=== PATIENT | female | born 1955 | race African-American/Black ===

== ENCOUNTER 2019-11-16 11:14 | Outpatient (CLI) | payer MEDICARE, MEDICAID, SELFPAY ==
[2019-11-16 11:42] LABS: Basophils Percent Auto 0.8 % (0.2-1.2); Eosinophils Absolute Auto 0.1 K/mm3 (0-0.3); Eosinophils Percent Auto 2.4 % (0-4.4); Hematocrit 36.7 % (37.0-47.0); Immature Granulocyte Absolute 0.02 K/mm3 (0.00-0.031); Immature Granulocyte Percent A 0.4 % (0-0.5); Lymphocytes Absolute Auto 1.32 K/mm3 (0.9-3.2); Lymphocytes Percent Auto 26.8 % (18.3-44.2); Mean Corpuscular HGB Conc 32.7 g/dl (32-36); Mean Corpuscular Hemoglobin 28.9 pg (26-34); Mean Corpuscular Volume 88.4 fl (80-100); Mean Platelet Volume 12.8 fl (7.4-10.4); Monocytes Absolute Auto 0.4 K/mm3 (0.1-0.6); Monocytes Percent Auto 7.7 % (2.6-8.5); Neutrophils Absolute Auto 3.1 K/mm3 (1.3-6.7); Neutrophils Percent Auto 61.9 % (45.5-73.1); Platelet Count Result 203 k/mm3 (150-375); Red Blood Count 4.15 M/mm3 (4.2-5.4); White Blood Count 4.9 K/mm3 (4.5-10.0)
[2019-11-16 15:29] LABS: Free T4 Free Thyroxine Reflex 1.23 ng/dL (0.78-2.19)
[2019-11-16 16:14] LABS: Total Triiodothyronine (T3) 1.09 NG/ML (0.97-1.69)
== END 2019-11-16 11:15 | disposition home or self-care (01) ==
PROVIDERS: PCP Family Medicine; Visit Provider Nurse Practitioner Family
DX: E03.9 Hypothyroidism, unspecified (principal); Z83.2 Family history of diseases of the blood and blood-forming organs and certain disorders involving the immune mechanism
CPT/HCPCS: 36415; 84439; 84443; 84480; 85025

== ENCOUNTER 2019-11-21 10:25 | Outpatient (CLI) | payer MEDICARE, MEDICAID, SELFPAY ==
--- NOTE | ~2019-11-21 | US_ITS ---
EXAMINATION: US thyroid DATE: 11/21/2019 10:59 INDICATION: Nontoxic goiter. TECHNIQUE: Multiple ultrasound images of the thyroid were obtained. COMPARISON: None. FINDINGS: The right thyroid lobe measures 2.6 x 1.2 x 1.3 cm. The left thyroid lobe measures 3.6 x 1.4 x 1.1 c m. In the left thyroid lobe, there is a 14 mm solid, isoechoic, [id number] nodule with ill-defi mando margin without echogenic foci (TI-RADS TR3). IMPRESSION: 1. Left thyroid nodule, likely not clinically significant. No follow-up is needed. Reviewed, dictated and finalized at location A. [employer] [employer] EXAMINER IMPRESSION: 1. Left thyroid nodule, likely not clinically significant. No follow-up is need ed.
== END 2019-11-21 10:26 | disposition home or self-care (01) ==
LOC: ANHIMG 10:26
PROVIDERS: PCP Family Medicine; Visit Provider Nurse Practitioner Family
DX: E03.9 Hypothyroidism, unspecified (principal); E04.9 Nontoxic goiter, unspecified
CPT/HCPCS: 76536

== ENCOUNTER 2019-12-27 10:09 | Outpatient (CLI) | payer MEDICARE, MEDICAID, SELFPAY ==
--- NOTE | ~2019-12-27 | MM_ITS ---
EXAMINATION: MM screening [facility] BI w [facility] HISTORY: Screening mammogram TECHNIQUE: Craniocaudal and mediolateral oblique 3-D tomosynthesis images were obtained and synthetic 2-D images were generated. CAD analysis was submitted and interpreted. COMPARISON: 10/25/2018, 08/30/2017, 08/05/2016 BREAST PARENCHYMAL COMPOSITION: 10/25/2018, 08/30/2017, 08/05/2016 FINDINGS: There is no evidence of suspicious mass, calcification, or architectural distortion to sugg est malignancy in either breast. There has been no suspicious interval change. IMPRESSION: 1. No mammographic evidence of malignancy. 2. Recommend routine screening mammography in one year. BI-RADS Category 1: Negative Reviewed, dictated and finalized at location A.
== END 2019-12-27 10:10 | disposition home or self-care (01) ==
PROVIDERS: PCP Family Medicine; Visit Provider Nurse Practitioner Family
DX: Z12.31 Encounter for screening mammogram for malignant neoplasm of breast (principal)
CPT/HCPCS: 77063; 77067

== ENCOUNTER 2020-07-23 10:00 | Outpatient (RCR) | payer MEDICARE, MEDICAID, SELFPAY ==
--- NOTE | 2020-06-13 10:47 | PCPTNOTE ---
pt called and canceled not feeling well.
--- NOTE | 2020-06-25 11:56 | PTOPEVAL ---
Thank you for referring Mitra Hernandez to [facility].? The patient is scheduled to be seen for therapy? 2 x/week for 4 weeks. Please review, sign, date and return this plan of care JORGE ALBERTO. I agree with and certify that the following plan of care is medically necessary. Referring Physician Date Admitting Provider: Attending Provider: Juliann Sequeira NP Physical Therapy Progress Note *PT Outpatient Evaluation Start: 05/30/20 10:22 Freq: Status: Active Protocol: Document 06/25/20 10:53 DONNY (Rec: 06/25/20 11:52 DONNY [id number]) Therapy Assessment Status Assessment Status Assessment Status Re-evaluation Evaluation Information Problem Diagnosis LBP Onset January 2020 Additional Evaluation Detail MRI of her back in 2014 that revealed lumbar arthritis. X- ray in 2018 was negative for fx. Subjective Information Reports cont pain with longer Query Text:As Reported By Patient/ walking. She reports improved Family tolerance with sitting and perform IADL's, ADL's. She is able to lift light objects without problems. She is able to stand for 1 hour if needed . She continues to c/o her pain as a heavy soreness that is on lennie low back with right greater. She denies any radiating symptoms into the leg. She is performing her HEP 3-4x /wk. Reports the exercise help when she is performing, but the pain returns after sitting . Pain Assessment Timing of Pain Assessment Timing of Pain Assessment Re-assessment Pain Scale Pain Scale Used Numeric (1 - 10) Self Report Pain Assessment Right Lower Back Reported Pain Level 5 Pain Description Aching,Soreness Pain Frequency Continuous Lowest Pain Intensity 5 Greatest Pain Intensity 6 Pain Aggravating Factors Lifting,Walking Pain Behaviors None Pain Relief Interventions Used By Exercise,Heat,Medication Patient Pain Score Pain Score 5: Self Report Cervical and Lumbar ROM Lumbar ROM Lumbar Flexion Active Ankle Query Text:Hands to: Lumbar Extension (0-40) 20 Query Text:Active in Degrees
--- NOTE | 2020-07-14 08:53 | PCPTNOTE ---
Patient called & cancelled scheduled appointment this date due to illness.
--- NOTE | 2020-07-23 10:46 | PTOPEVAL ---
Thank you for referring Mitra Hernandez to [facility].? Pt has received 12 therapy visits to address her back limitations. She has improved trunk and leg strength, trunk motion and tolerance with daily activities. She has achieved most of her therapy goals for her back. She is indep with her HEP. Will DC skilled therapy for addressing her back. She is scheduled to have an assessment for her vestibular impairments on 07/25/20. An updated POC will be completed based on vestibular impairments. Please review, sign, date and return this plan of care JORGE ALBERTO. I agree with and certify that the following plan of care is medically necessary. Referring Physician Date Attending Provider: Juliann Sequeira NP *PT Outpatient Evaluation Start: 05/30/20 10:22 Freq: Status: Active Protocol: Document 07/23/20 10:01 DONNY (Rec: 07/23/20 10:46 [facility] [id number]) Therapy Assessment Status Assessment Status Assessment Status Re-evaluation/ Discharge for back Outpatient Past Medical History Past Medical History No Past Medical/Surgical History Patient/Family Denies Significant Past Medical/ Surgical History Evaluation Information Problem Diagnosis LBP Onset January 2020 Additional Evaluation Detail MRI of her back in 2014 that revealed lumbar arthritis. X- ray in 2018 was negative for fx. Subjective Information Reports cont have increased Query Text:As Reported By Patient/ back pain with longer walking Family distance. States her muscle will tighten after 400 ft. She can sit as long as she likes if in her recliner. But has increased pain if sitting on a hard surface. Denies changes in pain with IADL's and ADL' s if she paces her task. She can manjula standing for 1 hr, but would need to lean on counter or object if needing to stand longer. She is more aware of her body mechanics with activities. She reports new alternating radiating symptoms into legs with walking. She is performing her HEP daily with decrease in her back pain. Pain Assessment Timing of Pain Assessment Timing of Pain Assessment Re-assessment Pain Scale Pain Scale Used Numeric (1 - 10) Self Report Pain Assessment Right Low
== END 2020-08-19 10:01 | disposition home or self-care (01) ==
LOC: ANHPT 10:00
PROVIDERS: PCP Family Medicine; Visit Provider Nurse Practitioner Family
DX: M54.5 Low back pain (principal)
CPT/HCPCS: 97110; 97116; 97161; 97530

== ENCOUNTER 2020-08-29 09:00 | Outpatient (RCR) | payer MEDICARE, MEDICAID, SELFPAY ==
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
--- NOTE | 2020-07-29 08:37 | PCPTNOTE ---
pt called and canceled today's treatment session, due to transportation issues.
--- NOTE | 2020-08-11 08:11 | PCPTNOTE ---
pt called and canceled today's appt due to not feeling well;
--- NOTE | 2020-08-18 09:20 | PCPTNOTE ---
pt did not show for today's appointment; called her and she stated her leg is swollen and apologized for not calling and canceling this appointment.
--- NOTE | 2020-08-25 13:53 | PCPTNOTE ---
Patient called & cancelled scheduled appointment this date due to not feeling well.
--- NOTE | 2020-08-29 09:39 | PTOPEVAL ---
PHYSICAL THERAPY REEVALUATION AND HOLD PT 08-29-2020 Refer to clinical summary below for the comparison to her initial evaluation. Therapy has made some improvement with the BPPV treatment of Eply maneuver. But, she continues to have intermittent dizziness and symptoms with positional changes. Mitra wants to return for a follow up appointment and discuss her status with you. And discuss if she needs to continue PT or not. If she is to continue therapy, please give her a new script to continue treatment. Thank you for referring Mitra Hernandez to [facility].? Please review, sign, date and return this reevaluation report JORGE ALBERTO. I agree with and certify that the following plan of care is medically necessary. Referring Physician Date Attending Provider: Juliann Sequeira NP *PT Outpatient Re-Evaluation Document 08/29/20 09:00 JESU (Rec: 08/29/20 09:39 JESU [id number]) Subjective Information Mitra reports: had dizziness Query Text:As Reported By Patient/ start on Tuesday when in Family yarsanism and continued for 5 days; now feel a little blurry and mild dizziness; when moving, it comes on, try to move slower; did the [employer] at home and made her dizzy and sick; am sick of feeling this way; eyes also water with this; when sitting down and trying to calm down, legs are jumpy and voice changes; try to stop the dizziness coming on and get tense with body and try to make it not come on; taking nausea med and it calms it down some; when dizzy, do not even try to read, makes dizziness worse; do not even try to cook or clean when have dizziness--afraid going to fall; has not had any falls; After last session, and maneuver performed--was A-OK, no problems, went to store after left here, then went home and rested in recliner; Self assessement with the Dizziness Handicap Index, score of 76/100; Pain Assessment Timing of Pain Assessment Timing of Pain Assessment Assessment Self Report Self Report Pain Level 0 Pain Score Pain Score 0: Self Report Additional Pain Score Comments n
--- NOTE | 2020-09-16 10:48 | PCPTNOTE ---
PHYSICAL THERAPY DISCHARGE 09-16-2020 Attending Provider: Juliann Sequeira NP Patient:Mitra Hernandez Date of :1955 Mrs. Hernandez has not returned for any further treatments since the reevaluation on 08/29/2020, therefore she will be discharged at this time. Refer to the reevaluation report for her status at the last appointment. Thank you for referring Mitra to [facility]. Please review, sign, date and return this discharge summary JORGE ALBERTO. I have been updated about the patient's current status and I agree with discharge from the above service at this time. Referring Physician Date
== END 2020-09-16 14:50 | disposition home or self-care (01) ==
LOC: ANHPT 09:00
PROVIDERS: PCP Family Medicine; Visit Provider Nurse Practitioner Family
DX: R42 Dizziness and giddiness (principal)
CPT/HCPCS: 97110; 97161

== ENCOUNTER 2021-01-07 09:17 | Outpatient (CLI) | payer MEDICARE, MEDICAID, SELFPAY ==
--- NOTE | ~2021-01-07 | MM_ITS ---
EXAMINATION: MM screening [facility] BI w [facility] HISTORY: Screening mammogram TECHNIQUE: Craniocaudal and mediolateral oblique 3-D tomosynthesis images were obtained and synthetic 2-D images were generated. CAD analysis was submitted and interpreted. COMPARISON: 12/27/2019, 10/25/2018, 08/30/2017 BREAST PARENCHYMAL COMPOSITION: The breasts are almost entirely fatty. FINDINGS: There is no evidence of suspicious mass, calcification, or architectural distortion to sugg est malignancy in either breast. There has been no suspicious interval change. IMPRESSION: 1. No mammographic evidence of malignancy. 2. Recommend routine screening mammography in one year. BI-RADS Category 1: Negative Reviewed, dictated and finalized at location A.
== END 2021-01-07 09:18 | disposition home or self-care (01) ==
LOC: ANHIMG 09:20
PROVIDERS: PCP Family Medicine; Visit Provider Nurse Practitioner Family
DX: Z12.31 Encounter for screening mammogram for malignant neoplasm of breast (principal)
CPT/HCPCS: 77063; 77067

== ENCOUNTER 2021-01-20 09:43 | Outpatient (CLI) | payer MEDICARE, MEDICAID, SELFPAY ==
[2021-01-20 10:26] LABS: Basophils Percent Auto 0.6 % (0.2-1.2); Eosinophils Absolute Auto 0.2 K/mm3 (0-0.3); Eosinophils Percent Auto 4.3 % (0-4.4); Hematocrit 34.7 % (37.0-47.0); Hemoglobin 11.6 g/dL (12.0-15.0); Immature Granulocyte Absolute 0.01 K/mm3 (0.00-0.031); Immature Granulocyte Percent A 0.2 % (0-0.5); Lymphocytes Absolute Auto 1.46 K/mm3 (0.9-3.2); Lymphocytes Percent Auto 31.5 % (18.3-44.2); Mean Corpuscular HGB Conc 33.4 g/dl (32-36); Mean Corpuscular Hemoglobin 29.7 pg (26-34); Mean Platelet Volume 12.9 fl (7.4-10.4); Monocytes Absolute Auto 0.4 K/mm3 (0.1-0.6); Monocytes Percent Auto 8.9 % (2.6-8.5); Neutrophils Absolute Auto 2.5 K/mm3 (1.3-6.7); Neutrophils Percent Auto 54.5 % (45.5-73.1); Platelet Count Result 193 k/mm3 (150-375); Red Cell Distribution Width 14.1 % (11.5-14.5); White Blood Count 4.6 K/mm3 (4.5-10.0)
[2021-01-20 10:39] LABS: Alanine Aminotransferase 15 U/L (4-35); Alkaline Phosphatase 73 U/L (38-126); Anion Gap 3 mmol/L (8-16); Aspartate Amino Transferase 24 U/L (14-36); Bilirubin,Total 0.4 mg/dL (0.2-1.3); Blood Urea Nitrogen 12 mg/dL (7-17); Calcium 8.7 mg/dL (8.4-10.2); Carbon Dioxide 30 mmol/L (22-30); Chloride 108 mmol/L (98-107); Cholesterol 132 mg/dL (0-200); Estimated Glomerular Filt Rate > 60; Glucose 84 mg/dL (65-105); HDL Direct 49 mg/dL; Potassium 4.1 mmol/L (3.4-5.0); Sodium 141 mmol/L (137-145); Triglycerides 54 mg/dL (<150)
[2021-01-20 10:50] LABS: LDL Cholesterol Direct 54 mg/dL
[2021-01-20 11:04] LABS: Free T4 Free Thyroxine 0.95 ng/mL (0.78-2.19)
== END 2021-01-20 09:44 | disposition home or self-care (01) ==
PROVIDERS: PCP Family Medicine; Visit Provider Nurse Practitioner Family
DX: E03.9 Hypothyroidism, unspecified (principal); Z13.220 Encounter for screening for lipoid disorders
CPT/HCPCS: 36415; 80053; 80061; 84439; 84443; 85025

== ENCOUNTER 2021-06-11 12:50 | Outpatient (CLI) | payer MEDICARE, MEDICAID, SELFPAY ==
--- NOTE | ~2021-06-11 | MR_ITS ---
EXAMINATION: MR ankle RT wo con DATE: 06/11/2021 14:01 INDICATION: Right-sided Achilles tendinitis TECHNIQUE: Magnetic resonance imaging (MRI) of the right ankle was performed without intravenous cont rast. Sequences included sagittal, coronal, and axial proton-density weighted fast spin echo without and with fat saturation. COMPARISON: None. FINDINGS: Medial ankle ligaments: Deep and superficial deltoid ligaments as well as the spring ligament are normal. Lateral ankle ligaments: The anterior and posterior inferior tibiofibular ligaments are normal. The anterior talofibular, calc aneofibular and posterior talofibular ligaments are normal. Tendons: Mild distal Achilles tendinosis. Mild intrasubstance tears with disruption of a couple tiny fascicles in the distal tendon involving the sulci <10% of the cross-sectional area of the tendon. The peroneu s longus and brevis tendons are normal. The tibialis anterior and extensor hallucis longus and extens or digitorum longus tendons are normal. The tibialis posterior, flexor digitorum longus and flexor lau llucis longus tendons are normal. Plantar fascia: Small enthesophyte at the calcaneal origin of the otherwise normal plantar aponeurosis. Bones/other: Bone alignment is normal. Normal bone marrow signal throughout. No fracture or pathologic marrow repl acing process. Mild osteoarthritis with mild nonuniform joint space narrowing at the tibiotalar and s ubtalar joints. Mild to moderate osteoarthritis with joint space narrowing as well as mild subarticul ar cystic change at the reticulation between the navicula and the lateral cuneiform. Fluid: Physiologic amount of fluid in the joint spaces. No tenosynovitis or other abnormal fluid collections . IMPRESSION: 1. Mild insertional tendinosis of the distal Achilles tendon with tiny partial-thickness intrasubstan ce tear involving <10% of the cross-sectional area of the tendon. 2. Polyarticular osteoarthritis, mild to moderate the lateral navicular cuneiform articulation and mi ld at the tibiotalar and subtalar joints. Reviewed, dictated and finalized at location B. IMPRESSION: 1. Mild insertional tendinosis of the distal Achilles tendon with tiny partial- thickness intrasubstance tear involving <10% of the cross-sectional area of the tendon. 2. Polyarticular osteoarthritis, mild to moderate the lateral navicular cuneifo rm articulation and mild at the tibiotalar and subtalar joints.
== END 2021-06-11 12:51 | disposition home or self-care (01) ==
PROVIDERS: PCP Nurse Practitioner Family; Visit Provider Nurse Practitioner
DX: M76.61 Achilles tendinitis, right leg (principal); M19.071 Primary osteoarthritis, right ankle and foot
CPT/HCPCS: 73721

== ENCOUNTER 2022-01-22 09:31 | Outpatient (CLI) | payer MEDICARE, MEDICAID, SELFPAY ==
--- NOTE | ~2022-01-22 | XR_ITS ---
EXAMINATION: XR knee RT 2V DATE: 01/22/2022 09:53 INDICATION: Right knee pain. TECHNIQUE: 2 views of right knee were obtained. COMPARISON: None. FINDINGS: Bone alignment is normal. No fracture. There is moderate osteoarthritis of medial and rivera lofemoral compartments and mild osteoarthritis of lateral compartment. There is a small knee joint ef fusion. IMPRESSION: 1. Moderate right knee osteoarthritis. 2. Small right knee joint effusion. Reviewed, dictated and finalized at location A.
== END 2022-01-22 09:32 | disposition home or self-care (01) ==
LOC: ANHIMG 09:35
PROVIDERS: PCP Family Medicine; Visit Provider Nurse Practitioner Family
DX: M17.11 Unilateral primary osteoarthritis, right knee (principal); M25.461 Effusion, right knee
CPT/HCPCS: 73560

== ENCOUNTER 2022-03-04 10:25 | Outpatient (CLI) | payer MEDICARE, MEDICAID, SELFPAY ==
--- NOTE | ~2022-03-04 | MM_ITS ---
EXAMINATION: MM screening [facility] w [facility] HISTORY: Screening mammogram, family history of breast cancer in her daughter. TECHNIQUE: Craniocaudal and mediolateral oblique 3-D tomosynthesis images were obtained and synthetic 2-D images were generated. CAD analysis was submitted and interpreted. COMPARISON: 01/07/2021, 12/27/2019, 10/25/2018 BREAST PARENCHYMAL COMPOSITION: There are scattered areas of fibroglandular density. FINDINGS: There is no suspicious mass, calcification, or architectural distortion to suggest malignan cy in either breast. There has been no suspicious interval change. IMPRESSION: 1. No mammographic evidence of malignancy. 2. Recommend routine screening mammography in one year. BI-RADS Category 1: Negative Reviewed, dictated and finalized at location A.
== END 2022-03-04 10:26 | disposition home or self-care (01) ==
PROVIDERS: PCP Family Medicine; Visit Provider Nurse Practitioner Family
DX: Z12.31 Encounter for screening mammogram for malignant neoplasm of breast (principal)
CPT/HCPCS: 77063; 77067

== ENCOUNTER 2022-09-10 11:00 | Outpatient (RCR) | payer MEDICARE, MEDICAID, SELFPAY ==
--- NOTE | 2022-08-13 09:03 | PTOPEVAL1 ---
Assessment and note entered by Lupe Mohamud, PT Evaluation Information Assessment Status Evaluation Diagnosis R knee and R foot pain Onset October 2021 Subjective Information In October, started having more pain in R heel-- saw foot , was told I had heel spurs and achilles tear, wore a walking boot and got an injection into my heel--did not help the pain; over time, heel got better and knee started hurting more, Dr Marc gave me shot in the knee and it helped until just few weeks ago, now pain has returned; told her she may need a TKR in the future; have had knee arthroscopy in the past For her heel doing exercises from another facility --calf and toe stretches; Discussed treatment plan and decided to focus PT treatment on knee first, then recheck with heel. Reported Pain Level Pain Score Self Report Additional Pain Score Comments pain range of R knee pain 7-9/10; burning just below knee cap & behind knee/at crease, swells and stabbing pain; increase pain with walking 5-10 min; decrease pain with elevation, ice, take tylenol-not really help; wear velcro knee brace sometimes, but if wear too long, makes knee swell; with sleeping awaken 2-3 x/night due to knee pain; Assessment PT Clinical Summary Mitra has the diagnosis of R knee pain and R heel pain. She has had treatment at another facility for her heel and reports it did not help; she is doing stretching exercises and ice for her heel. Discussed and decided that PT treatment would be for her R knee at this time and recheck with heel later. She reports the R knee pain limits her walking, sleeping and activity level. With the evaluation, she has decreased ROM of R hip flexion and ER and R knee flexion--with hip and knee pain reported. She has decreased strength of R hip and knee, and is not doing any leg exercises. Skilled PT services are indicated to increase R hip and knee strength, improve gait pattern and modalities to decrease pain with education for home exercises and pain control. Plan of Care Interventions Electrical Stimulation,Gait Training,Hot Pack/Cold Pack,Manual Therapy,Neuro Re-education,Patient/ Car
--- NOTE | 2022-09-03 08:48 | PCPTNOTE ---
Patient called & cancelled scheduled appointment this date stating that she can not make it to therapy today.
--- NOTE | 2022-09-10 11:26 | PTOPDC ---
Assessment and note entered by Lupe Mohamud, PT Evaluation Information Assessment Status Discharge Diagnosis R knee and R foot pain Onset October 2021 Subjective Information Mitra reports: about the same as she was when she started therapy; tape helped the heel a little; the knee exercises make her knee pain worse; fell few days ago, was sitting in a desk chair and moving around the kitchen with it, reaching into cabinet and chair flipped over--now more back and knee pain; was able to get up off the floor without anyone helping her; PAIN: R knee -07/26, needles and sticking pain below knee cap; R heel -07/26- posterior heel and bottom heel; pain increase R knee with moving walking and doing exercises, straighten knee; awaken from sleeping 2-3x/night; R heel pain increase with standing, walking; using the cane all the time at home; uses heat, ice, elevation and rest to decrease pain; Discussed use of wheeled walker, with seat, that she could decrease pressure on R leg and then sit in the seat for kitchen tasks and increased pain; Reported Pain Level Pain Score Self Report R foot and knee Assessment PT Clinical Summary Mitra has received 5 PT sessions. Compared to the initial evaluation: pain rating is worse, from 7-9/10 and now 9-10/10; reported sleeping tolerance is the same; is now using a cane all the time due to pain; 5 reps sit/stand time is worse by 15 seconds; 2 minute walking test distance is 50' less; Her pain increases with active R knee flexion and extension and ankle DF motions. She has been educated on home exercises and techniques for pain control The goals were not achieved. She is to follow up with the Discharge PT services. Plan of Care PT Services Indicated No
== END 2022-09-10 14:18 | disposition home or self-care (01) ==
LOC: ANHPT 11:00
PROVIDERS: PCP Family Medicine; Visit Provider Orthopaedic Surgery
DX: M17.11 Unilateral primary osteoarthritis, right knee (principal); M25.561 Pain in right knee; M79.671 Pain in right foot; M72.2 Plantar fascial fibromatosis
CPT/HCPCS: 97014; 97035; 97110; 97140; 97161; 97530; G0283

== ENCOUNTER 2022-12-28 11:00 | Outpatient (RCR) | payer MEDICARE, MEDICAID, SELFPAY ==
--- NOTE | 2022-11-23 10:57 | PTOPEVAL1 ---
Assessment and note entered by Lupe Mohamud, PT Evaluation Information Assessment Status Evaluation Diagnosis R plantar fasciitis Onset Sep 2022 Subjective Information gradual increase in pain, no recent injury to foot & ankle; history of R achilles tendon tear, R foot bone spur; no recent imaging; have had injections into R heel-about Jul- did not help pain; going on Dec 07 for orthotics to be fitted; R knee also painful--had injection in knee, helped about 1 week, then pain returned; history of low back pain; PT for her foot in the past here--tape helped some is still doing some of the ankle/foot exercises that she has; Reported Pain Level Pain Score Self Report R ankle/foot Additional Pain Score Comments pain range of 8-10/10; sharp, stabbing pain in R heel, goes up medial leg to medial and anterior knee; oliver in knee; increase pain with walking/ standing 30 min; decreased pain: soak hot epsom salt water, heat pad, ice pack; taking meloxicam; Assessment PT Clinical Summary Mitra has the diagnosis of R plantar fasciitis. She has a medical history including: chronic back pain, R hip, knee and ankle pain. She has achilles tear per her report. She has had PT in the past for R foot and ankle pain. She uses a cane and walking/standing is limited due to pain. With the evaluation: she has pain with R ankle motions of DF, PF, inversion and eversion motions, with ranges that are WNL; her R knee and hip have decreased ROM; she has poor standing position of her ankle/foot, and 2 minute walking test distance of 235'; Skilled PT services are indicated for modalities to decrease pain and spasms, therapeutic exercises to increase posture, strength and positioning of R LE and education for home exercises and positioning. Plan of Care Interventions Electrical Stimulation,Gait Training,Hot Pack/Cold Pack,Manual Therapy,Neuro Re-education,Patient/ Caregiver Education,Therapeutic Activities, Therapeutic Exercise,Ultrasound,Other Other Interventions taping PT Services Indicated Yes Treatment Frequency and 2x/wk for 5 weeks Duration
--- NOTE | 2022-12-10 11:19 | PCPTNOTE ---
Patient called & cancelled scheduled appointment this date due to going out of town.
--- NOTE | 2022-12-20 16:15 | PCPTNOTE ---
Patient called & cancelled scheduled appointment this date due to not feeling well.
--- NOTE | 2022-12-28 11:46 | PTOPDC ---
Assessment and note entered by Lupe Mohamud, PT Evaluation Information Assessment Status Discharge Diagnosis R plantar fasciitis Onset Sep 2022 Subjective Information Mitra reports: somewhat better, but still stiff and sore;doing the exercises sometimes; saw general pratt yesterday and got a new med for pain-- took one and it knocked her out yesterday afternoon; educated kinesiotape use-- how apply for continue use; reinforced continue HEP; pain range in the past week, 6-7/10, tenderness and sore, back of heel; increase pain with walking/standing tolerance of 1 hour, then have to sit down; decrease pain with sitting and elevation, heel cup for shoe; also use ice, soak in epsom salt with grain alcohol; also have pain in R knee & hip and low back Reported Pain Level Pain Score Self Report R heel/foot Additional Pain Score Comments pain range in the past week, 6-7/10, tenderness and sore, back of heel; increase pain with walking/standing tolerance of 1 hour, then have to sit down; decrease pain with sitting and elevation, heel cup for shoe; also use ice, soak in epsom salt with grain alcohol; Assessment PT Clinical Summary Mitra has received 7 PT sessions. She called and canceled 2 appointments due to transportation issues. Compared to the initial evaluation: pain has decreased from 8-10 to 6-7/10; reported walking/ standing tolerance increased from 30 to 60 minutes 2 minute walking distance increased from 235' to 450' and did not use a cane today; she continues to limp on R LE and hold R hip in ER; continues to have pain with active R ankle DF, inversion and eversion. She has been educated on HEP and pain control with kinesiotape, elevation, ice. The goals were partially met. Discharge PT services. Plan of Care PT Services Indicated No
== END 2023-02-07 09:51 | disposition home or self-care (01) ==
LOC: ANHPT 11:00
PROVIDERS: PCP Family Medicine; Visit Provider Podiatrist Foot & Ankle Surgery
DX: M72.2 Plantar fascial fibromatosis (principal)
CPT/HCPCS: 97035; 97110; 97140; 97161; 97530

== ENCOUNTER 2023-01-18 08:35 | Outpatient (CLI) | payer MEDICARE, MEDICAID, SELFPAY ==
[2023-01-18 19:53] LABS: Basophils Percent Auto 0.6 % (0.2-1.2); Eosinophils Absolute Auto 0.2 K/mm3 (0-0.3); Eosinophils Percent Auto 3.2 % (0-4.4); Hematocrit 36.7 % (37.0-47.0); Hemoglobin 12.1 g/dL (12.0-15.0); Immature Granulocyte Absolute 0.01 K/mm3 (0.00-0.031); Immature Granulocyte Percent A 0.2 % (0-0.5); Immature Platelet Fraction Pct 15.6 % (0.9-11.2); Lymphocytes Absolute Auto 1.53 K/mm3 (0.9-3.2); Lymphocytes Percent Auto 23.2 % (18.3-44.2); Mean Corpuscular Hemoglobin 29.4 pg (26-34); Mean Corpuscular Volume 89.1 fl (80-100); Monocytes Absolute Auto 0.5 K/mm3 (0.1-0.6); Neutrophils Absolute Auto 4.3 K/mm3 (1.3-6.7); Neutrophils Percent Auto 64.8 % (45.5-73.1); Platelet Count Result 234 k/mm3 (150-375); Red Blood Count 4.12 M/mm3 (4.2-5.4); Red Cell Distribution Width 14.6 % (11.5-14.5); White Blood Count 6.6 K/mm3 (4.5-10.0)
[2023-01-18 21:11] LABS: Alanine Aminotransferase 26 U/L (6-35); Albumin Level 4.1 g/dL (3.5-5.1); Alkaline Phosphatase 101 U/L (38-126); Anion Gap 5 mmol/L (8-16); Aspartate Amino Transferase 60 U/L (14-36); Bilirubin,Total 0.6 mg/dL (0.2-1.3); Blood Urea Nitrogen 7 mg/dL (7-17); Calcium 8.8 mg/dL (8.4-10.2); Carbon Dioxide 31 mmol/L (22-30); Chloride 105 mmol/L (98-107); Cholesterol 150 mg/dL (0-200); Estimated Glomerular Filt Rate > 60; Glucose 92 mg/dL (65-110); HDL Direct 46 mg/dL; Potassium 3.9 mmol/L (3.4-5.0); Sodium 141 mmol/L (137-145); Triglycerides 83 mg/dL (<150)
[2023-01-18 21:23] LABS: LDL Cholesterol Direct 63 mg/dL
[2023-01-18 21:29] LABS: Vitamin D 25 Hydroxy 19.4 ng/mL
== END 2023-01-18 08:36 | disposition home or self-care (01) ==
LOC: ANHGOSHLAB 08:37
PROVIDERS: PCP Family Medicine; Visit Provider Nurse Practitioner Family
DX: E03.9 Hypothyroidism, unspecified (principal); I10 Essential (primary) hypertension; E55.9 Vitamin D deficiency, unspecified; E78.5 Hyperlipidemia, unspecified
CPT/HCPCS: 36415; 80053; 80061; 82306; 84443; 85025; 85055

== ENCOUNTER → 2023-02-10 11:10 | Outpatient (CLI) | payer MEDICARE, MEDICAID, SELFPAY ==
--- NOTE | ~2023-02-10 | XR_ITS ---
Cervical Spine: AP, lateral, open-mouth views Clinical History: Pain Findings: There is straightening of the normal cervical lordosis. No fracture evident. No subluxation evident. There is moderate degenerative disc narrowing C5-C6 and C6-C7. There is mild degenerative c hange at C3-C4 and C4-C5. Pre-vertebral soft tissues are unremarkable. Impression: Mild degenerative spondylosis, as above. Reviewed, dictated and finalized at location M. Impression: Mild degenerative spondylosis, as above.
== END ==
PROVIDERS: PCP Nurse Practitioner Family; Visit Provider Nurse Practitioner Family
DX: M47.892 Other spondylosis, cervical region (principal)
CPT/HCPCS: 72040

== ENCOUNTER 2023-03-21 08:45 | Outpatient (RCR) | payer MEDICARE, MEDICAID, SELFPAY ==
--- NOTE | 2023-02-22 11:59 | PTOPEVAL1 ---
Assessment and note entered by Cathy Hall, PT Evaluation Information Assessment Status Evaluation Diagnosis cervicalgia Onset December 2022 Subjective Information Patient is 67 year old female referred due to neck pain. Patient reports pain is chronic for about one year but has recently worsened since December. Pain is located on the right side of her neck and is described as a crunchy and burning pain. x ray shows mild degenerative spondylosis of cervical spine. Patient goal is to decrease her pain in order to participate in activities within the community. Reported Pain Level Pain Score 7: Self Report Additional Pain Score Comments upon further assessment pain is most increased with palpation of cervical musculature, cervical rotation and lateral flexion to left when in corrected posture. Assessment PT Clinical Summary Patient is 67 year old female referred to Physical Therapy due to neck pain. Past medical history includes lupus, vertigo, arthritis, bilateral knee pain,and R Achilles tear. Patient reports pain as 7/10 in R side of neck, pain is worsened with any movement of cervical spine and is relieved with immobility. Patient demonstrates postural impairments upon assessment with R shoulder rounded forward, L shoulder elevated, and L lateral neck flexion/rotation. Range of motion limitations noted with R lateral cervical flexion 47 degrees, L lateral cervical flexion 30 degrees , R cervical rotation 40 degrees, L cervical rotation 30 degrees. Increased pain reported with cervical movement to L side. Visual cues required throughout to correct to neutral posture, patient able to achieve with cues however unable to maintain due to pain, weakness, impairments in muscle length. Patient would benefit from skilled therapy services 2x/wk for 4 weeks to improve length and strength of cervical musculature in order to improve upright posture and decrease pain . Plan of Care Interventions Electrical Stimulation,Hot Pack/Cold Pack,Manual Therapy,Mechanical Traction,Patient/Caregiver Education,Therapeutic Activities,Therapeutic Exercise,Self-Care/Home Management,Ultrasound PT Services Indicated Yes Treatment Frequency and 2x/wk for 4 weeks Duration
--- NOTE | 2023-03-17 09:23 | PCPTNOTE ---
Patient left message to cancel appointment due to illness this date.
--- NOTE | 2023-04-04 10:15 | PCPTNOTE ---
Patient did not show up for scheduled appointment on 03/24/23. This was her last scheduled visit.
--- NOTE | 2023-04-04 10:23 | PCPTNOTE ---
Called and LVM with pt to follow up. Has not attended since 03/21/23. If we do not hear back in the next week she will be discharged.
--- NOTE | 2023-04-04 11:50 | PTOPDC ---
Assessment and note entered by Adarsh Isaac, PT, DPT Evaluation Information Assessment Status Discharge - Pt Not Present Diagnosis cervicalgia Onset December 2022 Subjective Information Pt called and states she is doing well and can be discharged from therapy at this time. Assessment PT Clinical Summary Mitra completed 7 visits of therapy from 02/22/23 to 03/21/23. She will be discharged at this time per pt request. If she needs additional therapy at a later date she will need a new order. Plan of Care PT Services Indicated Yes
== END 2023-04-04 12:46 | disposition home or self-care (01) ==
LOC: ANHGOSHPT 08:45
PROVIDERS: PCP Nurse Practitioner Family; Visit Provider Nurse Practitioner Family
DX: M54.2 Cervicalgia (principal)
CPT/HCPCS: 97110; 97112; 97140; 97162; 99199

== ENCOUNTER 2023-07-05 07:10 | Outpatient (CLI) | payer MEDICARE, MEDICAID, SELFPAY ==
--- NOTE | ~2023-07-05 | MR_ITS ---
MRI of the right hindfoot Clinical history: Calcaneal spur Technique: Coronal proton-density and proton-density fat-sat images, axial proton-density and proton- density fat-sat images, and sagittal proton-density and proton-density fat-sat images were acquired. Findings: Syndesmotic ligaments of the ankle are intact. Anterior talofibular ligament is not clearly visualized. Posterior talofibular ligament is intact. Calcaneofibular ligament is not well-visualize d. Deltoid ligament is intact. Medial flexor tendons, peroneal tendons, and anterior extensor tendons at the ankle are intact. There is mild to moderate to distal Achilles tendinosis with focal linear low-grade interstitial tear dist ally. Plantar fascia is intact. Minimal plantar calcaneal spur present. No osteochondral lesion of the kenna r dome identified. Visualized joint spaces are intact. No joint effusion. Normal signal preserved in the sinus Tarsi. There is mild subcutaneous soft tissue edema, nonspecific. Impression: Mild to moderate distal Achilles tendinosis with focal linear low-grade interstitial tear. Anterior talofibular and calcaneofibular ligaments are not clearly visualized. This could reflect seq uelae of remote sprain/tear. Minimal plantar calcaneal spur. Reviewed, dictated and finalized at location . Impression: Mild to moderate distal Achilles tendinosis with focal linear low-grade interst itial tear. Anterior talofibular and calcaneofibular ligaments are not clearly visualized. This could reflect sequelae of remote sprain/tear. Minimal plantar calcaneal spur.
== END 2023-07-05 07:11 | disposition home or self-care (01) ==
PROVIDERS: PCP Nurse Practitioner Family; Visit Provider Nurse Practitioner Family
DX: M77.31 Calcaneal spur, right foot (principal)
CPT/HCPCS: 73718

== ENCOUNTER 2023-08-01 11:00 | Outpatient (RCR) | payer MEDICARE, MEDICAID, SELFPAY ==
--- NOTE | 2023-06-01 12:02 | OPREHPOC ---
Outpatient Therapy Plan of Care This is a Multidisciplinary Plan of Care that may contain components documented by all disciplines (PT, OT, and ST.) PT Problem 1 PT Problem #1 Knowledge Deficit PT Goal 1 Goal Independent with HEP Target Visit 8 PT Problem 2 PT Problem #2 Pain PT Goal 1 Goal decrease pain to 5/10 Target Visit 8 PT Problem 3 PT Problem #3 Impaired Gait PT Goal 1 Goal ambvulate without antalgic giat pattern Target Visit 8 PT Problem 4 PT Problem #4 Impaired Range of Motion PT Goal 1 Goal increase ankle strength to 4+/5 Target Visit 8
--- NOTE | 2023-06-01 12:02 | PTOPEVAL1 ---
Assessment and note entered by Nathan Colbert, PT Evaluation Information Assessment Status Evaluation Diagnosis R achilles/heel pain Onset chronic but increased pain about a year ago Subjective Information Patient reports having pain in this foot/heel for a long time with the pain getting significantly worse in the last year. The patient has prior done physical therapy and aquatic therapy at this clinic and its sister location in [place]. Patient reports she still does her heel stretching that she was given as he HEP, but the pain is worse. MD has also given her a prescription anti- inflammatory. Patient also uses a cold pack and ice pack for pain. Pain is aggravated by increased time on her feet. She did receive an injection she thinks in February or March of this year. Patient is wanting an MRI to see seriousness of injury. Reported Pain Level Pain Score 8: Self Report Additional Pain Score Comments Patient reports it is just constantly 8/10 pain. Assessment PT Clinical Summary Mitra is a 67 year old female coming into the clinic with a diagnosis of R Achilles/heel pain. Patient has weakness in the ankle along with two bad knees which hinder exercises at home. Recommend aquatic therapy using the buoyancy of the water to help minimize some of the stress on the joints while working on stretching and strengthening of the R ankle. Plan of Care Interventions Aquatic Therapy PT Services Indicated Yes Treatment Frequency and 1-2 x per week for 8 visits Duration These treatments will address the objective and functional deficits as defined above. The patient will be advanced safely and appropriately in order for the patient to progress towards his/her prior level of function. Additional exercises will be introduced and as well as a comprehensive home exercise program upon discharge, if needed, ?to ensure carryover of functional gains achieved in the clinic. This treatment plan has been reviewed and agreement upon by the patient.
--- NOTE | 2023-06-14 11:16 | PCPTNOTE ---
Pt had to cancel due to ride not showing.
--- NOTE | 2023-06-30 09:45 | OPREHPOC ---
Outpatient Therapy Plan of Care This is a Multidisciplinary Plan of Care that may contain components documented by all disciplines (PT, OT, and ST.) PT Problem 1 PT Problem #1 Knowledge Deficit PT Goal 1 Goal Independent with HEP Target Visit 8 Progress Partially Met Comment Dependant on aquatics at this time PT Problem 2 PT Problem #2 Pain PT Goal 1 Goal decrease pain to 5/10 Target Visit 8 Progress Partially Met Comment Lower but still significant PT Problem 3 PT Problem #3 Impaired Gait PT Goal 1 Goal ambulate without antalgic giat pattern Target Visit 8 Progress Not Met Comment Continues to reflect antalgia PT Problem 4 PT Problem #4 Impaired Range of Motion PT Goal 1 Goal increase ankle strength to 4+/5 Target Visit 8 Progress Partially Met Comment Improved but still painful
--- NOTE | 2023-06-30 09:45 | PTOPPROG ---
Assessment and note entered by David Zapata, PT Evaluation Information Assessment Status Evaluation Diagnosis R Achilles/heel pain Onset chronic but increased pain about a year ago Subjective Information Reports that therapy in the pool has really helped for a short time but she is still really struggling with pain on land. She feels she is still limping especially with increased time spent on her feet. She is overall better but does not feel she is good. Continues to struggle with swelling and pain with weight bearing. She gets occasional pain and numbness in the great toe and arch of the foot which has not greatly improved. Assessment PT Clinical Summary Patient has made progress at this time but is still showing significant weakness in the ankle that are also limited by pain symptoms at this time . Will continue to benefit from skilled therapy focused on aquatic to off load ankle to gradually improve strength. She is scheduled for an MRI on to assess structure of ankle and determine if she is a candidate for surgery. Plan of Care Interventions Aquatic Therapy PT Services Indicated Yes Treatment Frequency and 2x/week for 4 weeks Duration These treatments will address the objective and functional deficits as defined above. The patient will be advanced safely and appropriately in order for the patient to progress towards his/her prior level of function. Additional exercises will be introduced and as well as a comprehensive home exercise program upon discharge, if needed, ?to ensure carryover of functional gains achieved in the clinic. This treatment plan has been reviewed and agreement upon by the patient.
--- NOTE | 2023-07-18 08:49 | PCPTNOTE ---
pt called and canceled due to illness;
--- NOTE | 2023-08-01 11:58 | OPREHPOC ---
Outpatient Therapy Plan of Care This is a Multidisciplinary Plan of Care that may contain components documented by all disciplines (PT, OT, and ST.) PT Problem 1 PT Problem #1 Knowledge Deficit PT Goal 1 Goal Independent with HEP Target Visit 8 Progress Met PT Problem 2 PT Problem #2 Pain PT Goal 1 Goal decrease pain to 5/10 Target Visit 8 Progress Met Comment Consistently below 5/10 with activity PT Problem 3 PT Problem #3 Impaired Gait PT Goal 1 Goal ambulate without antalgic giat pattern Target Visit 8 Progress Met Comment For short distances PT Problem 4 PT Problem #4 Impaired Range of Motion PT Goal 1 Goal increase ankle strength to 4+/5 Target Visit 8 Progress Met Comment All strength measures met
--- NOTE | 2023-08-01 11:58 | PTOPDC ---
Assessment and note entered by David Zapata, PT Discharge Information Assessment Status Discharge Diagnosis R Achilles/heel pain Onset chronic but increased pain about a year ago Subjective Information Reports that she really feels that therapy has helped from both a functional and pain standpoint. No concerns at this time with discharge. Plans to continue motion activity at home. Reported Pain Level Pain Score 0: Self Report Assessment PT Clinical Summary Patient has met majority of goals at this time for therapy. She still has some minor strength issues and pain is based on activity level, but gait is significantly improved overall. Would like to discharge at this time based on improvement and she does not want aquatic therapy during the winter. Plan of Care PT Services Indicated No
== END 2023-08-01 14:05 | disposition home or self-care (01) ==
LOC: ANHPT 11:00
PROVIDERS: PCP Nurse Practitioner Family; Visit Provider Podiatrist Foot & Ankle Surgery
DX: M76.61 Achilles tendinitis, right leg (principal)
CPT/HCPCS: 97110; 97113; 97140; 97161

== ENCOUNTER 2023-08-16 10:31 | Outpatient (CLI) | payer MEDICARE, MEDICAID, SELFPAY ==
--- NOTE | ~2023-08-16 | XR_ITS ---
XR lumbar spine 2-3V DATE: 08/16/2023 10:19 INDICATION: Low back pain TECHNIQUE: AP, lateral, coned lateral lumbosacral views COMPARISON: 07/01/2017 lumbar spine FINDINGS: Again noted are 4 functional lumbar vertebrae. Normal alignment of the lumbar spine. No fra cture or bone destruction or spondylolisthesis is evident. There is moderately prominent degenerative disc disease including vacuum phenomenon at the lumbosacral interspace. The sacroiliac joints are intact with evidence of degenerative change. IMPRESSION: Moderate lumbosacral interspaces degenerative disc disease Degenerative change at the sacroiliac joints Reviewed, dictated and finalized at location L.
--- NOTE | ~2023-08-16 | XR_ITS ---
XR hip RT min 2V DATE: 08/16/2023 10:19 INDICATION: Right hip pain TECHNIQUE: AP and lateral views COMPARISON: None FINDINGS: No fracture or dislocation, avascular necrosis or bone destruction. Hip joint space is well preserved. IMPRESSION: Negative Reviewed, dictated and finalized at location L. IMPRESSION: Negative
--- NOTE | ~2023-08-16 | MM_ITS ---
EXAMINATION: MM screening aram BI w ashley HISTORY: Screening mammogram, family history of breast cancer in her daughter. TECHNIQUE: Craniocaudal and mediolateral oblique 3-D tomosynthesis images were obtained and synthetic 2-D images were generated. CAD analysis was submitted and interpreted. COMPARISON: 03/04/2022, 01/07/2021, 12/27/2019 BREAST PARENCHYMAL COMPOSITION: There are scattered areas of fibroglandular density. FINDINGS: No suspicious mass, calcification, or architectural distortion are identified in either jody ast to suggest malignancy. There has been no suspicious interval change. IMPRESSION: 1. No mammographic evidence of malignancy. 2. Recommend routine screening mammography in one year. BI-RADS Category 1: Negative Reviewed, dictated and finalized at location A.
--- NOTE | ~2023-08-16 | DEXA_ITS ---
Bone Density Report Name: ADELINA GOLDMAN Age: 67 Sex: Female Ethnicity: Black Date of : 1955 Indication: postmenopausal; screening for osteoporosis; hysterectomy; rheumatoid arthritis; Referring Provider: ELAYNE, MICHAELA Loving Study: Bone densitometry was performed. Exam Date: August 16, 2023 Accession number: [id number] Bone Density: Region BMD T-score Z-score Classification AP Spine(L1-L4) 1.064 0.2 1.2 Normal Femoral Neck (Left) 0.791 -0.5 0.2 Normal Total Hip (Left) 1.065 1.0 1.2 Normal Femoral Neck (Right) 0.843 -0.1 0.5 Normal Total Hip (Right) 0.929 -0.1 0.3 Normal Total Hip Mean 0.997 0.5 0.8 Normal World Health Organization criteria for BMD impression classify patients as: Normal (T-score at or above -1.0), Osteopenia (T-score between -1.0 and -2.5), or Osteoporosis (T-score at or below -2.5). 10-year Fracture Risk: FRAX not reported because: All T-scores for Spine Total, Hip Total, Femoral Neck at or above -1.0 Previous Exams: Region Exam Age BMD T-score BMD Change BMD Change Date g/cm2 vs Baseline vs Previous AP Spine (L1-L4) 08/16/2023 67 1.064 0.2 -0.037 (-3.3%) -0.037 (-3.3%) 06/29/2018 62 1.101 0.5 Total Hip(Left) 08/16/2023 67 1.065 1.0 -0.094 (-8.1%) -0.094 (-8.1%) 06/29/2018 62 1.159 1.8 Total Hip(Right) 08/16/2023 67 0.929 -0.1 -0.254 (-21.4% -0.254 (-21.4% 06/29/2018 62 1.183 2.0 *Denotes significance at 95% confidence level, LSC for AP Spine = 0.022 g/cm2, LSC for Total Hip = 0.027 g/cm2 Clinical Information Provided by Patient: Has rheumatoid arthritis Has used the following medications: Vitamin D Has the following medical conditions: Hysterectomy Patient maximum height was 61 Menopause Age: 34 No regular weight bearing exercise Onset of menses at age 15 Number of children 6 Impression: The patient has normal bone mass. The BMD for the AP Spine (L1-L4) decreased, changing by -3.3% since the last DXA exam. The BMD for the Total Hip(Left) decreased, changing by -8.1% since the last DXA exam. The BMD for the Total Hip(Right) decreased, changing by -21.4% since the last DXA exam. Discussion: BONE DENSITY IS ABOVE THE MINIMUM DESIRABLE LEVEL AT ALL SKELETAL SITES TESTED. This patient?s bone mineral density is above the minimum desirable level (T-score -1.0 or better) at all sites measured. The patient should follow a healthful lifestyle (good nutrition with adequate calci
[2023-08-16 11:22] LABS: Basophils Percent Auto 0.7 % (0.2-1.2); Eosinophils Absolute Auto 0.1 K/mm3 (0-0.3); Eosinophils Percent Auto 1.8 % (0-4.4); Hematocrit 36.6 % (37.0-47.0); Hemoglobin 11.9 g/dL (12.0-15.0); Immature Granulocyte Absolute 0.02 K/mm3 (0.00-0.031); Immature Granulocyte Percent A 0.4 % (0-0.5); Lymphocytes Absolute Auto 1.62 K/mm3 (0.9-3.2); Mean Corpuscular HGB Conc 32.5 g/dl (32-36); Mean Corpuscular Hemoglobin 28.7 pg (26-34); Mean Corpuscular Volume 88.2 fl (80-100); Mean Platelet Volume 12.8 fl (7.4-10.4); Monocytes Absolute Auto 0.6 K/mm3 (0.1-0.6); Monocytes Percent Auto 9.8 % (2.6-8.5); Neutrophils Absolute Auto 3.3 K/mm3 (1.3-6.7); Neutrophils Percent Auto 58.3 % (45.5-73.1); Platelet Count Result 215 k/mm3 (150-375); Red Blood Count 4.15 M/mm3 (4.2-5.4); Red Cell Distribution Width 14.2 % (11.5-14.5); White Blood Count 5.6 K/mm3 (4.5-10.0)
[2023-08-16 11:34] LABS: Alanine Aminotransferase 17 U/L (6-35); Albumin Level 4.2 g/dL (3.5-5.1); Alkaline Phosphatase 79 U/L (38-126); Anion Gap 7 mmol/L (8-16); Aspartate Amino Transferase 24 U/L (14-36); Bilirubin,Total 0.8 mg/dL (0.2-1.3); Blood Urea Nitrogen 10 mg/dL (7-17); Calcium 9.3 mg/dL (8.4-10.2); Carbon Dioxide 28 mmol/L (22-30); Chloride 107 mmol/L (98-107); Cholesterol 158 mg/dL (0-200); Estimated Glomerular Filt Rate > 60; Glucose 94 mg/dL (65-110); HDL Direct 55 mg/dL; Potassium 3.6 mmol/L (3.4-5.0); Sodium 142 mmol/L (137-145); Triglycerides 65 mg/dL (<150)
[2023-08-16 11:46] LABS: LDL Cholesterol Direct 69 mg/dL
== END 2023-08-16 10:32 | disposition home or self-care (01) ==
PROVIDERS: PCP Nurse Practitioner Family; Visit Provider Nurse Practitioner Family
DX: Z12.31 Encounter for screening mammogram for malignant neoplasm of breast (principal); Z78.0 Asymptomatic menopausal state; M47.817 Spondylosis without myelopathy or radiculopathy, lumbosacral region; M17.11 Unilateral primary osteoarthritis, right knee; M25.551 Pain in right hip; I10 Essential (primary) hypertension; Z00.00 Encounter for general adult medical examination without abnormal findings; Z13.220 Encounter for screening for lipoid disorders; E03.9 Hypothyroidism, unspecified; M54.50 Low back pain, unspecified; M51.36 Other intervertebral disc degeneration, lumbar region
CPT/HCPCS: 36415; 72100; 73502; 77063; 77067; 77080; 80053; 80061; 84443; 85025

== ENCOUNTER 2023-08-21 05:12 | Emergency (ER) | payer MEDICARE, MEDICAID, SELFPAY ==
[2023-08-21] VITALS (12 sets, daily range): BP systolic 138–148; BP diastolic 65–83; PULSE 59–69; RESP 12–20; TEMP 36.5; O2SAT 93–97
--- NOTE | ~2023-08-21 | XR_ITS ---
EXAMINATION: XR knee RT 3V DATE: 08/21/2023 06:23 INDICATION: Right knee pain TECHNIQUE: Three views of the right knee were obtained. COMPARISON: None. FINDINGS: Alignment is normal. No fracture or osteochondral lesion. There is moderate osteoarthritis in the medial and patellofemoral compartments. No joint effusion/synovitis. Soft tissues are unremar kable. IMPRESSION: 1. Osteoarthritis without acute osseous abnormality. Reviewed, dictated and finalized at location F. EXPERT
--- NOTE | ~2023-08-21 | XR_ITS ---
EXAMINATION: XR tibia fibula RT 2V INDICATION: Right leg pain TECHNIQUE: Two views of the right tibia and fibula are obtained on four radiographs. COMPARISON: None available FINDINGS: Bone alignment is normal. There is no fracture. There is moderate osteoarthritis in the med ial and patellofemoral compartments of the knee. Posterior and plantar calcaneal enthesophytes are no pastor. The soft tissues are unremarkable. IMPRESSION: 1. No acute osseous abnormality. Reviewed, dictated and finalized at location F. L CONSULTANT
--- NOTE | ~2023-08-21 | XR_ITS ---
EXAMINATION: XR hip RT 2V w AP pelvis INDICATION: Right hip pain TECHNIQUE: AP view the pelvis and two views of the right hip are obtained. COMPARISON: 08/16/2023 FINDINGS: Bone alignment is normal. There is no fracture. There is mild osteoarthritis of the hips. T he soft tissues are unremarkable. IMPRESSION: 1. Mild osteoarthritis without acute osseous abnormality. Reviewed, dictated and finalized at location F. RNMENT AFFAIRS DIRECTOR
--- NOTE | ~2023-08-21 | XR_ITS ---
EXAMINATION: XR femur RT min 2V INDICATION: Right leg pain TECHNIQUE: Two views of the right femur obtained on four radiographs. COMPARISON: None available FINDINGS: Bone alignment is normal. There is no fracture. There is mild osteoarthritis of the hip. Th ere is moderate osteoarthritis in the medial and patellofemoral compartments of the knee. The soft ti ssues are unremarkable. IMPRESSION: 1. No acute osseous abnormality. Reviewed, dictated and finalized at location F. AINABLE SYSTEMS ANALYST
--- NOTE | ~2023-08-21 | XR_ITS ---
EXAMINATION: XR ankle RT min 3V INDICATION: Right ankle pain TECHNIQUE: Four views of the right ankle are obtained. COMPARISON: None available FINDINGS: Bone alignment is normal. There is no fracture. There is mild osteoarthritis of the midfoot . Posterior and plantar calcaneal enthesophytes are noted. The soft tissues are unremarkable. IMPRESSION: 1. No acute osseous abnormality. Reviewed, dictated and finalized at location F. ODOLOGIST
--- NOTE | 2023-08-21 05:25 | ED.EXTPRO ---
HPI - Extremity Problem General Chief complaint: Extremity Problem,Nontraumatic Stated complaint: rle pain Time Seen by Provider: 08/21/23 05:25 History of Present Illness HPI Narrative: Patient is a 67-year-old female with history of lupus, arthritis presents to the ED today with right leg pain. She states that last night around 11:00 a.m. she was in [place] and bouncing on her heels when she heard a crunch behind her left knee and felt immediate pain. She notes that the pain is located diffusely through her entire left leg. She has been trying to tough it out at home and had no improvement of pain so she presented to the emergency department via ambulance. She denies any fall. She denies any numbness in the leg. No history of AFib, coronary artery disease, peripheral vascular disease. Related Data Home Medications Medication Instructions Recorded Confirmed aspirin 81 mg tablet,delayed 81 mg PO DAILY 01/13/21 08/11/23 release meloxicam 15 mg tablet 15 mg PO DAILY 01/19/22 08/11/23 clobetasol 0.05 % scalp solution 1 applic topical BID 08/05/22 08/11/23 hydroxychloroquine 200 mg tablet 200 mg PO BID 08/05/22 08/11/23 Allergies Allergy/AdvReac Type Severity Reaction Status Date / Time No Known Allergies Allergy Verified 08/11/23 09:59 Review of Systems Review of Systems: All systems reviewed & are unremarkable except as noted in HPI and below PMFSH Past Medical History Medical History (Updated 08/21/23 @ 07:00 by Lisa Jackson MD) Arthritis Chronic right shoulder pain Degenerated intervertebral disc Disc degeneration, lumbar Discoid lupus Follows with Dr Hill - [facility] U FHx: polycythemia vera Frequent headaches Hypothyroid Low back pain radiating to right leg Neck pain on right side Plantar fasciitis, right Screening cholesterol level Vertigo Vitamin D deficiency Surgical History Surgical History H/O arthroscopy of right knee (~2010) H/O repair of left rotator cuff (~2009) History of hysterectomy 2018 Family History Family History Mother Diabetes mellitus Hypertension Family history of dementia Family history of type 2 diabetes mellitus Father Family history of congestive heart failure Family history of type 2 diabetes mellitus Family history of heart disease in male family member before age 55 Patient's father is , Onset Age: 76 Family history of cardiovascular disease, Onset Age: 75 Grandparent Family history of malignant neoplasm Diabetes mellitus Sibling Polycythemia vera Ovarian cancer Family history of lupus erythematosus Social History Social History Social History: Caffeine-none Smoking status: Former smoker Second hand tobacco smoke exposure: No Smoking end date: 11/11/13 Alcohol intake: never Substance use: never Substance use type: does not use Lack of Transportation: No Lack of Food: Never True Current Housing: I Have Housing Concerned About Future Housing: No Difficulty Paying Gas/Electric Bills: No Difficulty Paying for Meds: No Currently Unemployed: No Education: High School Diploma/GED Difficulty w/ Childcare or Family Care: No Living arrangements: with family Occupation/Education: retired Additional occupation/education comments: Disabled Gender identity (if verbalized by the patient): Female Sexual Orientation (if Verbalized by the Patient): Straight or Heterosexual Agree to blood products: Yes Exam Narrative: GENERAL: Well-appearing, well-nourished, and in no acute distress. HEAD: Normocephalic, atraumatic. EYES: PERRLA and EOMI. ENT: Nares clear. Mucous membranes moist. NECK: Supple. CHEST: Clear to auscultation. No respiratory distress. HEART: Regular rate and rhythm. Normal peripheral pulses. ABDOMEN: Soft, nontend
[2023-08-21] MEDS: MORPHINE SULFATE (*CRX) 4 MG/ML INJ IV PUSH (06:31)
[2023-08-21 06:33] LABS: Basophils Percent Auto 0.4 % (0.2-1.2); Eosinophils Absolute Auto 0.1 K/mm3 (0-0.3); Eosinophils Percent Auto 0.7 % (0-4.4); Hematocrit 34.7 % (37.0-47.0); Hemoglobin 11.4 g/dL (12.0-15.0); Immature Granulocyte Absolute 0.02 K/mm3 (0.00-0.031); Immature Granulocyte Percent A 0.3 % (0-0.5); Lymphocytes Absolute Auto 1.35 K/mm3 (0.9-3.2); Lymphocytes Percent Auto 17.9 % (18.3-44.2); Mean Corpuscular HGB Conc 32.9 g/dl (32-36); Mean Corpuscular Hemoglobin 28.8 pg (26-34); Mean Corpuscular Volume 87.6 fl (80-100); Mean Platelet Volume 12.4 fl (7.4-10.4); Monocytes Absolute Auto 0.6 K/mm3 (0.1-0.6); Monocytes Percent Auto 7.4 % (2.6-8.5); Neutrophils Absolute Auto 5.5 K/mm3 (1.3-6.7); Neutrophils Percent Auto 73.3 % (45.5-73.1); Platelet Count Result 210 k/mm3 (150-375); Red Blood Count 3.96 M/mm3 (4.2-5.4); Red Cell Distribution Width 14.2 % (11.5-14.5); White Blood Count 7.5 K/mm3 (4.5-10.0)
[2023-08-21 06:43] LABS: INR 1.1; Prothrombin Time 14.2 Seconds (11.1-14.7)
[2023-08-21 06:44] LABS: Partial Thromboplastin Time 31.7 SECONDS (22.3-36.8)
[2023-08-21 06:46] LABS: Alanine Aminotransferase 20 U/L (6-35); Albumin Level 4.2 g/dL (3.5-5.1); Alkaline Phosphatase 83 U/L (38-126); Anion Gap 8 mmol/L (8-16); Aspartate Amino Transferase 26 U/L (14-36); Bilirubin,Total 0.8 mg/dL (0.2-1.3); Blood Urea Nitrogen 7 mg/dL (7-17); Calcium 9.1 mg/dL (8.4-10.2); Carbon Dioxide 25 mmol/L (22-30); Chloride 108 mmol/L (98-107); Estimated CRCL calculation 65 ml/min; Estimated Glomerular Filt Rate > 60; Glucose 117 mg/dL (65-110); Lactic Acid Reflex 1.1 mmol/L (0.7-2.0); Potassium 3.1 mmol/L (3.4-5.0); Sodium 141 mmol/L (137-145)
[2023-08-21] MEDS: POTASSIUM BICARBONATE 25 MEQ TABEF 50 MEQ PO (07:13)
[2023-08-21] MEDS: HYDROcodone/acetaminophen (*CRX) 5-325 MG TABLET 1 TAB PO (08:24)
== END 2023-08-21 08:43 | disposition home or self-care (01) ==
PROVIDERS: Emergency Provider Student in an Organized Health Care Education/Training Program; PCP Nurse Practitioner Family
DX: M25.561 Pain in right knee (principal); E03.9 Hypothyroidism, unspecified; L93.0 Discoid lupus erythematosus; Z87.891 Personal history of nicotine dependence
CPT/HCPCS: 36415; 73502; 73552; 73562; 73590; 73610; 80053; 83605; 85025; 85610; 85730; 96374; 99284; A9270; J2270

== ENCOUNTER 2023-08-24 10:24 | Emergency (ER) | payer MEDICARE, MEDICAID, SELFPAY ==
--- NOTE | ~2023-08-24 | US_ITS ---
EXAMINATION: US venous doppler LE RT DATE: 08/24/2023 12:27 INDICATION: Right lower limb pain with palpable pop behind the left knee occurring 4 days prior. TECHNIQUE: Grayscale ultrasound images without and with compression and Doppler ultrasound images of the right lower extremity veins were obtained. COMPARISON: None. FINDINGS: The visualized portions of right common femoral vein, profunda (deep) femoral vein, femoral vein, pop liteal vein, peroneal trunk, posterior tibial veins, peroneal veins, gastrocnemius vein and greater s aphenous vein outflow are patent. IMPRESSION: 1. No deep venous thrombosis in the right lower limb. Reviewed, dictated and finalized at location A. SE GRADER
--- NOTE | ~2023-08-24 | CT_ITS ---
EXAMINATION: CT knee RT wo con DATE: 08/24/2023 11:59 INDICATION: Right knee pain post trauma TECHNIQUE: High resolution computed tomography (CT) of the right knee was performed without intraveno us contrast. Additional sagittal and coronal reconstructions were performed. Automated exposure contr ol and iterative reconstruction technique were employed. The dose-length product was 611.05 mGy-cm. COMPARISON: Radiograph dated 08/21/2023 FINDINGS: 8 mm lateral patellar subluxation. Alignment is otherwise normal. No fracture identified. Tricompartm ental osteoarthritis at the right knee, advanced at the lateral aspect of the patellofemoral compartm ent where there is remodeling of the articular surfaces with extensive underlying subarticular cystli ke changes. Moderate to severe nonuniform joint space narrowing in the medial compartment with subart icular eburnation along the medial tibial plateau and small central subchondral osteophytes consisten t with overlying high-grade chondromalacia at the anterior weightbearing medial femoral condyle. Smal l marginal osteophytes without significant joint space narrowing the lateral compartment although sev erity of joint space narrowing can be underestimated on nonweightbearing imaging. Small simple fluid attenuation right knee joint effusion which is likely reactive. Small enthesophytes at the patellar i nsertions of the distal quadriceps and proximal patellar tendons. Soft tissues are unremarkable. IMPRESSION: 1. Tricompartmental osteoarthritis at the right knee, advanced at the patellofemoral compartment and moderate to severe in the medial compartment with likely reactive small knee joint effusion. 2. No fracture. Reviewed, dictated and finalized at location A. MANAGEMENT COORDINATOR IMPRESSION: 1. Tricompartmental osteoarthritis at the right knee, advanced at the patellofe moral compartment and moderate to severe in the medial compartment with likely reactive small knee joint effusion. 2. No fracture.
[2023-08-24 10:45] VITALS: BP 152/89; PULSE 56; RESP 16; TEMP 36.6; O2SAT 100
--- NOTE | 2023-08-24 13:03 | ED.LOWEXIN ---
HPI - Extremity Injury (Lower) General Chief Complaint: Extremity Injury, Lower Stated Complaint: R knee pain Time Seen by Provider: 08/24/23 11:16 History of Present Illness HPI Narrative: Patient is a 67-year-old female who presents ER with right knee pain. Referred here by her PCP to rule out DVT. Patient had injury that she was seen for 3 days ago. Has persistent pain and difficulty ambulating. She is not wearing her brace currently. No fevers chills or sweats. No chest pain or chest pressure or difficulty breathing. Pain is posterior to the knee. No new swelling of the leg. Related Data Home Medications Medication Instructions Recorded Confirmed aspirin 81 mg tablet,delayed 81 mg PO DAILY 01/13/21 08/24/23 release meloxicam 15 mg tablet 15 mg PO DAILY 01/19/22 08/24/23 clobetasol 0.05 % scalp solution 1 applic topical BID 08/05/22 08/24/23 hydroxychloroquine 200 mg tablet 200 mg PO BID 08/05/22 08/24/23 Allergies Allergy/AdvReac Type Severity Reaction Status Date / Time No Known Allergies Allergy Verified 08/24/23 09:26 Review of Systems Review of Systems: All systems reviewed & are unremarkable except as noted in HPI and below Cardiovascular: Cardiovascular: Reports no additional cardiovascular complaints Respiratory: Respiratory: Reports no additional respiratory complaints Musculoskeletal: Musculoskeletal: Reports arthralgias, Denies joint swelling and Denies muscle cramps PMFSH Past Medical History Medical History Arthritis Chronic right shoulder pain Degenerated intervertebral disc Disc degeneration, lumbar Discoid lupus Follows with Dr Hill - Shaun FHx: polycythemia vera Frequent headaches Hypothyroid Low back pain radiating to right leg Neck pain on right side Plantar fasciitis, right Screening cholesterol level Vertigo Vitamin D deficiency Surgical History Surgical History H/O arthroscopy of right knee (~2010) H/O repair of left rotator cuff (~2009) History of hysterectomy 2018 Family History Family History Mother Diabetes mellitus Hypertension Family history of dementia Family history of type 2 diabetes mellitus Father Family history of congestive heart failure Family history of type 2 diabetes mellitus Family history of heart disease in male family member before age 55 Patient's father is , Onset Age: 76 Family history of cardiovascular disease, Onset Age: 75 Grandparent Family history of malignant neoplasm Diabetes mellitus Sibling Polycythemia vera Ovarian cancer Family history of lupus erythematosus Social History Social History Social History: Caffeine-none Smoking status: Former smoker Second hand tobacco smoke exposure: No Smoking end date: 11/11/13 Alcohol intake: never Substance use: never Substance use type: does not use Lack of Transportation: No Lack of Food: Never True Current Housing: I Have Housing Concerned About Future Housing: No Difficulty Paying Gas/Electric Bills: No Difficulty Paying for Meds: No Currently Unemployed: No Education: High School Diploma/GED Difficulty w/ Childcare or Family Care: No Living arrangements: with family Occupation/Education: retired Additional occupation/education comments: Disabled Gender identity (if verbalized by the patient): Female Sexual Orientation (if Verbalized by the Patient): Straight or Heterosexual Agree to blood products: Yes Exam Narrative: GENERAL: Well-appearing, morbidly obese, and in no acute distress. HEAD: Normocephalic, atraumatic. CHEST: Clear to auscultation. No respiratory distress. HEART: Regular rate and rhythm. Normal peripheral pulses. ABDOMEN: Soft, nontender, nondistended. EXTREMITIES: Normal range
[2023-08-24 13:32] VITALS: BP 153/79; PULSE 53; RESP 20; O2SAT 97
== END 2023-08-24 13:33 | disposition home or self-care (01) ==
PROVIDERS: Emergency Provider Emergency Medicine; PCP Nurse Practitioner Family
DX: M17.11 Unilateral primary osteoarthritis, right knee (principal); M79.604 Pain in right leg; L93.0 Discoid lupus erythematosus; M19.90 Unspecified osteoarthritis, unspecified site; M51.36 Other intervertebral disc degeneration, lumbar region; E03.9 Hypothyroidism, unspecified; E55.9 Vitamin D deficiency, unspecified; E66.01 Morbid (severe) obesity due to excess calories; Z68.42 Body mass index [BMI] 45.0-49.9, adult; Z87.891 Personal history of nicotine dependence; Z90.710 Acquired absence of both cervix and uterus; Z79.82 Long term (current) use of aspirin
CPT/HCPCS: 73700; 93971; 99284

== ENCOUNTER 2023-11-18 11:00 | Outpatient (RCR) | payer MEDICARE, MEDICAID, SELFPAY ==
--- NOTE | 2023-10-21 13:31 | OPREHPOC ---
Outpatient Therapy Plan of Care This is a Multidisciplinary Plan of Care that may contain components documented by all disciplines (PT, OT, and ST.) PT Problem 1 PT Problem #1 Knowledge Deficit PT Goal 1 Goal 1* indep with HEP PT Problem 2 PT Problem #2 Pain PT Goal 1 Goal 1* pt report pain at worst rating of 6/10 2* self assessment with LE functional scale of 30/ 80 PT Problem 3 PT Problem #3 Impaired Flexibility PT Goal 1 Goal increase flexibility of R knee to improve sit/ stand transfers and gait skills sitting active knee ROM 1* extension 0' 2* flexion 100' PT Problem 4 PT Problem #4 Impaired Functional Mobil PT Goal 1 Goal 1* 2 minute walking test distance of 175' with assistive device 2* 5 reps sit/stand without use of UE in 21 seconds 3* pt ambulate without limp on R LE/good weight shift
--- NOTE | 2023-10-21 13:31 | PTOPEVAL1 ---
Assessment and note entered by Lupe Mohamud, PT Evaluation Information Assessment Status Evaluation Diagnosis R knee sparin/ OA Onset Aug 20, 2023 Subjective Information standing and felt a pop in the back of her knee, then it swelled up- over entire lower leg; to ER- CT of knee reports severe degenerative changes; tested for blood clot- negative; pain is less than initially; Medical history: R heel spur, R achilles tendinopathy; Activity: cane or wheeled walker; assist with home tasks; problems with standing and walking; Reported Pain Level Pain Score Self Report Additional Pain Score Comments pain range in the past week 8-9/10; calf hard and tight, thigh hurts history: R achilles tendon tear, increase pain standing and walking decrease pain: sit/rest, soak epsom salt water,, ice, heating blanket awaken 3-4 x/night due to knee pain Assessment PT Clinical Summary Mitra has the diagnosis of R knee sprain and OA. Onset with hearing a pop of her knee in [place] of knee reports severe degenerative changes. Knee pain is limiting her standing and walking and sleeping tolerances. LE functional score of 14/ 80. She is using a cane for ambulation. Her medical history includes LBP, R heel spur and R achilles tendinopathy. With the evaluation: R knee active ROM in sitting is (-25) to 75' and supine extension knee (-15'), with reports of pain over entire patellar area, popliteal crease, medial thigh and anterior nixon. 2 minute walking test distance of 115' with cane; 5 reps sit/stand time of 31 sec with use of 1 UE. Skilled PT services are indicated for modalities to decrease pain, therapeutic exercises to increase knee ROM and strength, with education for HEP and position of knee. Plan of Care Interventions Electrical Stimulation,Hot Pack/Cold Pack,Manual Therapy,Neuro Re-education,Patient/Caregiver Educati,Therapeutic Activities,Therapeutic Exercise,Ultrasound,Other Other Interventions tap
--- NOTE | 2023-11-07 08:49 | PCPTNOTE ---
cancelled due to weather.
--- NOTE | 2023-11-18 11:47 | PTOPDC ---
Assessment and note entered by Lupe Mohamud, PT Discharge Information Assessment Status Discharge Diagnosis R knee sprain/ OA Onset Aug 20, 2023 Subjective Information knee is not as sore as it was, got up this morning and it was sore, but not pain that been having; doing the exercises at home; doing some knee exercises when soaking in the tub; having sinus problems, saw dr about it and finished meds, to go back for another appt; Reported Pain Level Pain Score Self Report Additional Pain Score Comments pain range of the past week: 4-6/10; knee is much better- hardly hurts anymore; point to posterior knee and distal-lateral patellar areas, burning sensation. increase pain: knee hold straight and then go to bend it; reported standing/ home activity tolerance 1-2 hours decrease pain: sit/rest, soak in bath tub; take advil PRN for pain was able to sleep through the night last night Assessment PT Clinical Summary Mitra has received 6 PT sessions. Compared to the initial evaluation: pain decreased from 8-9/10 to 4-6/10; is able to sleep through the night now; 5 sec sit stand time from 31 to 14 seconds; 2 minute walking test distance from 115' to 390'; no longer using cane; Active knee ROM in sitting: from (-25') to 75' to (-10') to 110', with reports of pain at both end ranges of motion; self assessment LE functional scale: score of 83% limitation and now 38%; Education completed for HEP and gait training. The goals were achieved, except knee extension to 0' and walking without a limp on R LE. Discharge PT services; she is to continue with her HEP and working on knee ROM. Plan of Care PT Services Indicated No
== END 2023-11-18 12:23 | disposition home or self-care (01) ==
LOC: ANHPT 11:00
PROVIDERS: PCP Nurse Practitioner Family; Visit Provider Nurse Practitioner Family
DX: M17.11 Unilateral primary osteoarthritis, right knee (principal); S83.91XD Sprain of unspecified site of right knee, subsequent encounter
CPT/HCPCS: 97014; 97110; 97161; 97530; G0283

== ENCOUNTER 2023-11-20 13:08 | Emergency (ER) | payer MEDICARE, MEDICAID, SELFPAY ==
--- NOTE | ~2023-11-20 | XR_ITS ---
EXAMINATION: XR chest 2V DATE: 11/20/2023 13:55 INDICATION: Cough and headache TECHNIQUE: PA and lateral views of the chest are obtained. COMPARISON: None available FINDINGS: The lungs are free of acute opacities. No pleural effusion or pneumothorax. The cardiomedia stinal silhouette is normal. There is moderate thoracic spondylosis. IMPRESSION: 1. No acute cardiopulmonary abnormality. Reviewed, dictated and finalized at location A. AL HEAD ADVERTISER SOLUTIONS
[2023-11-20 13:22] VITALS: BP 165/81; PULSE 93; TEMP 36.3; O2SAT 100
--- NOTE | 2023-11-20 13:42 | ED.URI ---
HPI - URI/Sore Throat General Chief Complaint: Upper Respiratory Infection Stated Complaint: upper resp infection Time Seen by Provider: 11/20/23 13:36 History of Present Illness HPI Narrative: Patient is a 67-year-old female with history of arthritis, vertigo, hypothyroidism, lupus on hydroxychloroquine here with cough and dizziness. Patient notes that she had a viral illness in September, took a few days of antibiotic but did not complete the course, she had been feeling well until about 3 weeks ago. She notes that she has a persistent cough, productive of yellow sputum. room this is associated with some shortness of breath. She denies any fever, has been experiencing some chills. Today she notes that she started feeling dizzy. She notes that it feels similar to her prior episodes of vertigo. She did take 2 doses of her meclizine without improvement of her symptoms. She denies any light headedness, chest pain. No prior history of PE or DVT. No known sick contacts. No cardiac history. Related Data Home Medications Medication Instructions Recorded Confirmed aspirin 81 mg tablet,delayed 81 mg PO DAILY 01/13/21 09/29/23 release meloxicam 15 mg tablet 15 mg PO DAILY 01/19/22 09/29/23 clobetasol 0.05 % scalp solution 1 applic topical BID 08/05/22 09/29/23 hydroxychloroquine 200 mg tablet 200 mg PO BID 08/05/22 09/29/23 Allergies Allergy/AdvReac Type Severity Reaction Status Date / Time No Known Allergies Allergy Verified 11/20/23 13:09 Review of Systems Review of Systems: All systems reviewed & are unremarkable except as noted in HPI and below PMFSH Past Medical History Medical History (Updated 11/20/23 @ 17:10 by Lisa Jackson MD) Arthritis Chronic right shoulder pain Degenerated intervertebral disc Disc degeneration, lumbar Discoid lupus Follows with Dr Hill - Shaun U Epistaxis FHx: polycythemia vera Frequent headaches Hypothyroid Low back pain radiating to right leg Neck pain on right side Plantar fasciitis, right Right knee DJD Right knee sprain Screening cholesterol level Vertigo Vitamin D deficiency Surgical History Surgical History H/O arthroscopy of right knee (~2010) H/O repair of left rotator cuff (~2009) History of hysterectomy 2018 Family History Family History Mother Diabetes mellitus Hypertension Family history of dementia Family history of type 2 diabetes mellitus Father Family history of congestive heart failure Family history of type 2 diabetes mellitus Family history of heart disease in male family member before age 55 Patient's father is , Onset Age: 76 Family history of cardiovascular disease, Onset Age: 75 Grandparent Family history of malignant neoplasm Diabetes mellitus Sibling Polycythemia vera Ovarian cancer Family history of lupus erythematosus Social History Social History Social History: Caffeine-none Smoking status: Former smoker Second hand tobacco smoke exposure: No Smoking end date: 11/11/13 Alcohol intake: never Substance use: never Substance use type: does not use Lack of Transportation: No Lack of Food: Never True Current Housing: I Have Housing Concerned About Future Housing: No Difficulty Paying Gas/Electric Bills: No Difficulty Paying for Meds: No Currently Unemployed: No Education: High School Diploma/GED Difficulty w/ Childcare or Family Care: No Living arrangements: with family Occupation/Education: retired Additional occupation/education comments: Disabled Gender identity (if verbalized by the patient): Female Sexual Orientation (if Verbalized by the Patient): Straight or Heterosexual Agree to blood products: Yes Exam Narrative: GENERAL: Well-appearing, well-nourished, and in no acute distress. HE
--- NOTE | 2023-11-20 14:20 | ECG_ITS ---
Measurements Intervals [place] Rate: 70 P: 57 NH: 167 QRS: 15 QRSD: 97 T: 9 QT: 419 QTc: 454 Interpretive Statements SINUS RHYTHM NORMAL ELECTROCARDIOGRAM NO PREVIOUS ECG AVAILABLE FOR COMPARISON Electronically Signed On 11-21-2023 7:30:29 MACHINE OPERATOR HOP PICKER by Stew Saenz M.D.
[2023-11-20 14:26] LABS: Influenza A QL RT-PCR Negative (Negative); Influenza B QL RT-PCR Negative (Negative); RSV RNA, RT-PCR Negative (Negative); SARS-CoV-2 RNA PCR Negative (Negative)
[2023-11-20 14:30] VITALS: PULSE 74; RESP 18
[2023-11-20] MEDS: IPRATROPIUM 0.5 MG/ALBUTEROL SULFATE 2.5 MG AMPUL.NEB 3 ML INHALATION (14:30)
[2023-11-20 14:40] VITALS: PULSE 78; RESP 18
[2023-11-20] MEDS: SODIUM CHLORIDE 0.9% IV 1,000 ML 999 ML IV CONT (14:42)
[2023-11-20] MEDS: predniSONE 20 MG TABLET 40 MG PO (14:45)
[2023-11-20 14:48] LABS: Basophils Percent Auto 0.5 % (0.2-1.2); Eosinophils Absolute Auto 0.2 K/mm3 (0-0.3); Eosinophils Percent Auto 3.6 % (0-4.4); Hematocrit 35.1 % (37.0-47.0); Hemoglobin 11.5 g/dL (12.0-15.0); Immature Granulocyte Absolute 0.03 K/mm3 (0.00-0.031); Immature Granulocyte Percent A 0.5 % (0-0.5); Lymphocytes Absolute Auto 1.56 K/mm3 (0.9-3.2); Lymphocytes Percent Auto 24.6 % (18.3-44.2); Mean Corpuscular HGB Conc 32.8 g/dl (32-36); Mean Corpuscular Volume 88.4 fl (80-100); Mean Platelet Volume 12.3 fl (7.4-10.4); Monocytes Absolute Auto 0.6 K/mm3 (0.1-0.6); Neutrophils Absolute Auto 3.9 K/mm3 (1.3-6.7); Neutrophils Percent Auto 61.8 % (45.5-73.1); Platelet Count Result 186 k/mm3 (150-375); Red Blood Count 3.97 M/mm3 (4.2-5.4); Red Cell Distribution Width 13.6 % (11.5-14.5); White Blood Count 6.3 K/mm3 (4.5-10.0)
[2023-11-20 15:09] LABS: Alanine Aminotransferase 14 U/L (6-35); Albumin Level 3.6 g/dL (3.5-5.1); Alkaline Phosphatase 83 U/L (38-126); Anion Gap 3 mmol/L (8-16); Aspartate Amino Transferase 27 U/L (14-36); Bilirubin,Total 0.6 mg/dL (0.2-1.3); Blood Urea Nitrogen 9 mg/dL (7-17); Carbon Dioxide 32 mmol/L (22-30); Chloride 109 mmol/L (98-107); Estimated CRCL calculation 72 ml/min; Estimated Glomerular Filt Rate > 60; Glucose 101 mg/dL (65-110); Magnesium 1.9 mg/dL (1.6-2.3); Potassium 3.4 mmol/L (3.4-5.0); Sodium 144 mmol/L (137-145); Troponin I < 0.012 ng/mL (0.000-0.034)
[2023-11-20] MEDS: MECLIZINE HCL 25 MG TABLET PO (15:59)
[2023-11-20] MEDS: ACETAMINOPHEN 325 MG TABLET 650 MG PO (15:59)
[2023-11-20] MEDS: DOXYCYCLINE HYCLATE 100 MG TABLET PO (17:21)
== END 2023-11-20 17:32 | disposition home or self-care (01) ==
PROVIDERS: Emergency Provider Student in an Organized Health Care Education/Training Program; PCP Nurse Practitioner Family
DX: J18.9 Pneumonia, unspecified organism (principal); Z20.822 Contact with and (suspected) exposure to COVID-19; R06.2 Wheezing; R42 Dizziness and giddiness; E03.9 Hypothyroidism, unspecified; L93.0 Discoid lupus erythematosus; E55.9 Vitamin D deficiency, unspecified; M17.11 Unilateral primary osteoarthritis, right knee; Z87.891 Personal history of nicotine dependence; Z90.710 Acquired absence of both cervix and uterus
CPT/HCPCS: 36415; 71046; 80053; 83735; 84484; 85025; 87637; 93005; 94640; 96360; 99284; A9270; J7030; J7512

== ENCOUNTER 2024-01-25 08:11 | Outpatient (CLI) | payer MEDICARE, MEDICAID, SELFPAY ==
--- NOTE | ~2024-01-25 | MR_ITS ---
MRI of the lumbar spine Clinical History: Degenerative disc disease Technique: Axial T2-weighted images, and sagittal T1-weighted, T2-weighted, and and T2 fat-sat images were acquired. Findings: There is no fracture or subluxation of the lumbar spine. Vertebral bodies maintain normal h eight and alignment. No suspicious bone marrow signal abnormality seen. At L1-L2 and L2-L3, there is no disc bulge or herniation. There is mild to moderate facet arthropathy at these levels. No spinal canal stenosis or neural foraminal narrowing at these levels. At L3-L4, there is minimal degenerative disc narrowing. No disc bulge or herniation. There is moderat e to advanced facet arthropathy. No central canal stenosis. There is minimal bilateral neural foramin al narrowing. At L4-L5, there is mild degenerative disc narrowing. No disc bulge or herniation. There is severe fac et arthropathy. No spinal canal stenosis. There is mild right neural foraminal narrowing. Left neural foramen preserved. At L5-S1, there is degenerative disc narrowing without significant disc bulge or herniation. There is severe facet arthropathy. No central canal stenosis. There is moderate bilateral neural foraminal na rrowing, left worse than right. Paravertebral soft tissues are unremarkable. Impression: Overall mild degenerative spondylosis, as above. Reviewed, dictated and finalized at location M. Impression: Overall mild degenerative spondylosis, as above.
== END 2024-01-25 08:12 | disposition home or self-care (01) ==
LOC: ANHIMG 08:13
PROVIDERS: PCP Nurse Practitioner Family; Visit Provider Family Medicine
DX: M51.36 Other intervertebral disc degeneration, lumbar region (principal); M47.896 Other spondylosis, lumbar region
CPT/HCPCS: 72148

== ENCOUNTER 2024-02-02 08:00 | Outpatient (RCR) | payer MEDICARE, MEDICAID, SELFPAY ==
--- NOTE | 2024-01-04 11:55 | OPREHPOC ---
Outpatient Therapy Plan of Care This is a Multidisciplinary Plan of Care that may contain components documented by all disciplines (PT, OT, and ST.) PT Problem 1 PT Problem #1 Knowledge Deficit PT Goal 1 Goal *indep with HEP on land and in water PT Problem 2 PT Problem #2 Pain PT Goal 1 Goal 1* decrease pain R knee to 7/10 at worst 2* self assessment LE functional scale of 60% limitation in activity 3* pt report sleeping 1 hour at time 4* pt report activity level at home of 45 minutes PT Problem 3 PT Problem #3 Impaired Range of Motion PT Goal 1 Goal increase R knee ROM to improve walking and transfer skill 1* sitting active motion knee extension 0' PT Problem 4 PT Problem #4 Impaired Functional Mobil PT Goal 1 Goal 1* 2 minute walking test distance of 250' PT Problem 5 PT Problem #5 Impaired Strength PT Goal 1 Goal increase LE strength to improve mobility skills 1* pt perform supine R and L LE exercises 15 reps
--- NOTE | 2024-01-04 11:55 | PTOPEVAL1 ---
Assessment and note entered by Lupe Mohamud, PT Evaluation Information Assessment Status Evaluation Diagnosis R knee OA/strain Onset Nov 2023 Subjective Information gradual increase in R knee pain, without injury or trauma to LE; no recent imaging or tests to knee; did not discuss any surgery or intervention with her--just go to therapy; have had PT for knee in the past here, for water and land exercises; at home, have been working on bending and straightening knee and hamstring stretch with towel on foot; a few years ago, saw back dr and was told had bulging discs; have not have back treatment or pain management; Activity: home activity tolerance about 30 min, then have to sit down--back pain and knee pain increase; do not work outside of home, involved with her confucianist and activities there. use cane PRN--when balance is off; Reported Pain Level Pain Score Self Report Additional Pain Score Comments pain range in the past week: stays 9/10 all time; overall body hurts stabbing pain, burning sensation, over anterior and medial patellar areas; increase pain with standing/walking home activity level up on feet 30 min; sleeping 10-15 minutes at time, then wake up, change position, go to couch heat and ice help slightly, but pain returns; soak in bath tub with epson salts Assessment PT Clinical Summary Mitra has the diagnosis of R knee pain. Her medical history includes R knee arthroscopy, R achilles tendon tear, R heel spur, low back pain, lupus. She reports issues with walking, sleeping and activity tolerances due to pain. With the evaluation: she has decreased R knee active ROM with increased pain; supine R hip flexion, IR and ER increase her pain; spasms and tenderness over R lower lumbar, lateral hip, ITB, knee and proximal calf; 2 minute walking test distance of 150' with increase pain; poor standing position of trunk, hip and R LE. Skilled PT services are indicated for treatment for R knee pain and low back radicular pain to R LE: aquatic exercises for the buoyancy effects of the water, to ease pressure on her body, modalities to decrease pain; therapeutic exercises on land to increase strength of trunk, hips and R LE, with education for HEP and posture education. Plan of Care Interventions Aquatic Therapy,Electrical Stimulation,Gait Training,Hot Pack/Cold Pack,Manual Therapy,Neuro Re-education,Patient/Caregiver Education,Therapeutic Activities,Therapeutic Exercise,Ultrasound,Other Other Interventions taping PT Services Indicated Yes Treatment Frequency and 2x/wk for total of 6 visits Duration These treatments will address the objective and functional deficits as defined above. The patient will be advanced safely and appropriately in order for the patient to progress towards his/her prior level of function. Additional exercises will be introduced and as well as a comprehensive home exercise program upon discharge, if needed, ?to ensure carryover of functional gains achieved in the clinic. This treatment plan has been reviewed and agreement upon by the patient.
--- NOTE | 2024-01-20 10:23 | PCPTNOTE ---
Pt no showed visit today. Pt stated she looked at her schedule wrong. Pt was reminded of her next appt day and time.
--- NOTE | 2024-02-02 08:40 | PTOPDC ---
Assessment and note entered by Lupe Mohamud, PT Discharge Information Assessment Status Discharge Diagnosis R knee OA/strain Onset Nov 2023 Subjective Information feeling better, new medicine is helping her; does not use the cane anymore; has been doing the exercises sometimes, but doing more around the house--did all the laundry yesterday; to see the pain management dr next week. Reported Pain Level Pain Score Self Report Additional Pain Score Comments pain range in the past week of 5-7/10; medial knee and calf hurt; not as swollen as it was; no longer have burning sensation; able to sleep 6 hours at a time with the new med; activity tolerance with home tasks 4 hours; Assessment PT Clinical Summary Mitra has received 6 PT sessions. Compared to the initial evaluation: she has improved with: pain rating of 9/10 to 5-7/10; LE functional score with self assessment from 78% to 29% limitation in activity; reported sleeping tolerance from 15 min to 6 hours and activity tolerance from 30 min to 4 hours; 2 minute walking test distance from 150' to 380'; ROM of knee extension (-25') to 0'; increase strength of R LE; The goals were achieved. Discharge PT. She is to continue with her HEP and activity as tolerated. Plan of Care PT Services Indicated No
== END 2024-02-02 09:32 | disposition home or self-care (01) ==
LOC: ANHPT 08:00
PROVIDERS: PCP Nurse Practitioner Family; Visit Provider Nurse Practitioner Family
DX: M17.11 Unilateral primary osteoarthritis, right knee (principal); S83.91XD Sprain of unspecified site of right knee, subsequent encounter
CPT/HCPCS: 97014; 97110; 97113; 97162; 97530; G0283

== ENCOUNTER 2024-06-01 12:31 | Outpatient (CLI) | payer MEDICARE, MEDICAID, SELFPAY ==
[2024-06-01 18:38] LABS: Alanine Aminotransferase 18 U/L (6-35); Albumin Level 4.1 g/dL (3.5-5.1); Alkaline Phosphatase 83 U/L (38-126); Anion Gap 5 mmol/L (4-12); Aspartate Amino Transferase 31 U/L (14-36); Bilirubin,Total 0.6 mg/dL (0.2-1.3); Blood Urea Nitrogen 12 mg/dL (7-17); Calcium 9.1 mg/dL (8.4-10.2); Carbon Dioxide 34 mmol/L (22-30); Chloride 101 mmol/L (98-107); Cholesterol 131 mg/dL (0-200); Estimated Glomerular Filt Rate > 60; Glucose 91 mg/dL (65-110); HDL Direct 52 mg/dL; Potassium 3.8 mmol/L (3.4-5.0); Sodium 140 mmol/L (137-145); Triglycerides 106 mg/dL (<150)
[2024-06-01 18:39] LABS: Basophils Absolute Auto 0.1 K/mm3 (0.0-0.1); Eosinophils Absolute Auto 0.2 K/mm3 (0-0.3); Eosinophils Percent Auto 2.9 % (0-4.4); Hemoglobin 12.3 g/dL (12.0-15.0); Immature Granulocyte Absolute 0.02 K/mm3 (0.00-0.031); Immature Granulocyte Percent A 0.3 % (0-0.5); Lymphocytes Absolute Auto 1.79 K/mm3 (0.9-3.2); Lymphocytes Percent Auto 28.9 % (18.3-44.2); Mean Corpuscular HGB Conc 32.4 g/dl (32-36); Mean Corpuscular Hemoglobin 29.2 pg (26-34); Mean Corpuscular Volume 90.3 fl (80-100); Mean Platelet Volume 12.8 fl (7.4-10.4); Monocytes Absolute Auto 0.5 K/mm3 (0.1-0.6); Monocytes Percent Auto 8.2 % (2.6-8.5); Neutrophils Absolute Auto 3.6 K/mm3 (1.3-6.7); Neutrophils Percent Auto 58.7 % (45.5-73.1); Platelet Count Result 218 k/mm3 (150-375); Red Blood Count 4.21 M/mm3 (4.2-5.4); Red Cell Distribution Width 13.6 % (11.5-14.5); White Blood Count 6.2 K/mm3 (4.5-10.0)
[2024-06-01 18:49] LABS: LDL Cholesterol Direct 45 mg/dL
[2024-06-01 18:54] LABS: Free T4 Free Thyroxine 0.93 ng/mL (0.78-2.19)
== END 2024-06-01 12:32 | disposition home or self-care (01) ==
LOC: ANHGOSHLAB 12:32
PROVIDERS: PCP Family Medicine; Visit Provider Nurse Practitioner Family
DX: E03.9 Hypothyroidism, unspecified (principal); Z13.220 Encounter for screening for lipoid disorders; Z79.899 Other long term (current) drug therapy
CPT/HCPCS: 36415; 80053; 80061; 84439; 84443; 85025

== ENCOUNTER 2024-10-12 15:48 | Emergency (ER) | payer MEDICARE, MEDICAID, SELFPAY ==
--- NOTE | ~2024-10-12 | XR_ITS ---
XR chest 2V Ordering provider: Nevaeh Owusu PA-C History: 68 years Female with . uri, cough, congestion . Comparison: November 20, 2023 FINDINGS: MEDIASTINUM: The cardiac silhouette is not enlarged. LUNGS: No infiltrates, effusions or pneumothorax. OTHER: No free air under the diaphragm. Degenerative changes of the spine. IMPRESSION: No acute cardiopulmonary pathology. Reviewed, dictated and finalized at location A. [employer]
[2024-10-12 16:33] VITALS: BP 131/63; PULSE 66; RESP 18; TEMP 36.7; O2SAT 98
[2024-10-12 18:52] LABS: Influenza A QL RT-PCR Negative (Negative); Influenza B QL RT-PCR Negative (Negative); RSV RNA, RT-PCR Negative (Negative); SARS-CoV-2 RNA PCR Positive (Negative)
--- NOTE | 2024-10-12 19:06 | ED.URI ---
HPI - URI/Sore Throat General Chief Complaint: Upper Respiratory Infection Stated Complaint: cough, sore throat Time Seen by Provider: 10/12/24 18:04 Source: patient Mode of arrival: ambulatory Limitations: no limitations History of Present Illness HPI Narrative: Patient is a 68-year-old female who presents the ED with report of URI sx's. Patient reports she has been sick since Tuesday with cough, congestion, rhinorrhea, scratchy throat. Has been taking otc meds with some improvement. Denies fevers. Denies shortness breath or chest pain. is sick with similar sx's. Related Data Home Medications ?Medication ?Instructions ?Recorded ?Confirmed ?Last Taken ?Type aspirin 81 mg tablet,delayed 81 mg PO DAILY 01/13/21 06/01/24 Unknown History release clobetasol 0.05 % scalp solution 1 applic topical BID 08/05/22 06/01/24 Unknown History hydroxychloroquine 200 mg tablet 200 mg PO BID 08/05/22 06/01/24 Unknown History Allergies Allergy/AdvReac Type Severity Reaction Status Date / Time No Known Allergies Allergy Verified 07/12/24 09:01 Review of Systems Review of Systems: All systems reviewed & are unremarkable except as noted in HPI. All systems reviewed & are unremarkable except as noted in HPI and below PMFSH Past Medical History Medical History BMI 50.0-59.9, adult Right knee sprain Epistaxis Disc degeneration, lumbar Degenerated intervertebral disc Neck pain on right side Right knee DJD Plantar fasciitis, right Discoid lupus Follows with Dr Hill - [facility] Screening cholesterol level Vertigo Chronic right shoulder pain Low back pain radiating to right leg FHx: polycythemia vera Arthritis Frequent headaches Vitamin D deficiency Hypothyroid Surgical History Surgical History History of hysterectomy 2018 H/O repair of left rotator cuff (~2009) H/O arthroscopy of right knee (~2010) Family History Family History Mother Diabetes mellitus Hypertension Family history of dementia Family history of type 2 diabetes mellitus Father Family history of congestive heart failure Family history of type 2 diabetes mellitus Family history of heart disease in male family member before age 55 Patient's father is , Onset Age: 76 Family history of cardiovascular disease, Onset Age: 75 Grandparent Family history of malignant neoplasm Diabetes mellitus Sibling Polycythemia vera Ovarian cancer Family history of lupus erythematosus Social History Social History Social History: Caffeine-none Smoking status: Former smoker Second hand tobacco smoke exposure: No Smoking end date: 11/11/13 Alcohol intake: never Substance use: never Substance use type: does not use Lack of Transportation: No Lack of Food: Never True Current Housing: I Have Housing Concerned About Future Housing: No Difficulty Paying Gas/Electric Bills: No Difficulty Paying for Meds: No Currently Unemployed: No Education: High School Diploma/GED Difficulty w/ Childcare or Family Care: No Living arrangements: with family Occupation/Education: retired Additional occupation/education comments: Disabled Gender identity (if verbalized by the patient): Female Sexual Orientation (if Verbalized by the Patient): Straight or Heterosexual Agree to blood products: Yes Exam Narrative: GENERAL: Well appearing, morbidly obese with BMI of 45.5, non-toxic, in no acute distress. HEAD: Normocephalic, atraumatic. RESPIRATORY: Airway patent, respirations nonlabored. Clear to auscultation bilaterally, no rales, rhonchi, wheezing. No significant focal lung sounds. CARDIOVASCULAR: Regular rate and rhythm without murmurs, rubs, or gallops. MUSCULOSKELETAL: Moves all extremities. No gross deformities. SKIN: Warm, dry, normal color. NEURO: A&O X3. Speech clear. Cranial nerves II-XII grossly intact. Steady gait. No ataxic movements. PSYCHIATRIC: Appropriate mood and affect. Normal interaction. Course Vital Signs Vital signs: Vital Signs Temperature 98.1 F 10/12/24 16:33 Pulse Rate 66 10/12/24 16:33 Respiratory Rate 18 10/12/24 16:33 Blood Pressure 131/63 10/12/24 16:33 Pulse Oximetry 98 10/12/24 16:33 Oxygen Delivery Room Air 10/12/24 16:33 Temperature 98.1 F 10/12/24 16:33 Pulse Rate 66 12/27/24 16:33 Respiratory Rate 18 10/12/24 16:33 Blood Pressure 131/63 10/12/24 16:33 Pulse Oximetry 98 10/12/24 16:33 Oxygen Delivery Room Air 10/12/24 16:33 MDM - URI/Sore Throat MDM Narrative Medical decision making narrative: COVID testing positive. Consistent with clinical picture. Chest x-ray is clear. Patient is denying any chest pain or shortness of breath. VSS. No hypoxia or tachycardia. Will be discharged. Discussed continued management of sx's. Rx for tessalon perles given. Given strict return precautions. D/C in stable condition. Medical Records Attestation: I reviewed the patient's medical records. Lab Data Attestation: I reviewed the patient's lab results. Labs: Lab Results 10/12/24 Range/Units 18:06 Influenza A (RT-PCR) Negative (Negative) Influenza B (RT-PCR) Negative (Negative) RSV (RT-PCR) Negative (Negative) SARS-CoV-2 RNA (RT-PCR) Positive A (Negative) Imaging Data Attestation: I personally reviewed and interpreted this imaging study as follows: Radiologist's impression: ITS Impressions Chest X-Ray 10/12/24 18:22 IMPRESSION: No acute cardiopulmonary pathology. Discharge Plan Discharge Clinical Impression: COVID-19 Patient Disposition: Home, Self-Care Condition: Stable Instructions: Antibiotic Form, Cold Symptoms (ED), COVID-19 (Coronavirus Disease 2019) (ED), How to Recover from COVID-19 at Home (ED) Additional Instructions: You were diagnosed with COVID-19 today. Isolate at home as you are contagious. Stay well-hydrated at home. Recommend electrolyte rich fluids, Gatorade, Pedialyte, body armor. Utilize Tessalon Perles as needed for cough. Tylenol and Ibuprofen for discomfort and/or fevers. Recommend continuing kufz-hec-faawzrq cough and cold medicines for symptom relief, Delsym, Mucinex, DayQuil, NyQuil, Sudafed, Robitussin, TheraFlu. Follow with primary care doctor upon resolution of symptoms. Return to the ED if you experience chest pain, difficulty breathing, unable to keep down food or drink, severe pain, or any other symptoms of concern. Patient Language: Kyrgyz Prescriptions: New benzonatate 200 mg capsule 200 mg PO TID PRN (Reason: cough) Qty: 20 0RF No Action clobetasol 0.05 % solution 1 applic topical BID hydroxychloroquine 200 mg tablet 200 mg PO BID duloxetine [Cymbalta] 60 mg capsule,delayed release(DR/EC) 60 mg PO DAILY Qty: 100 1RF meloxicam 15 mg tablet 15 mg PO DAILY Qty: 90 1RF aspirin 81 mg tablet,delayed release (DR/EC) 81 mg PO DAILY albuterol sulfate 90 mcg/actuation HFA aerosol inhaler 2 puff inhalation QID PRN (Reason: shortness of breath or wheezing) Qty: 6.7 0RF ketoconazole 2 % shampoo See Rx Instructions .ROUTE .COMPLEX Qty: 120 0RF Dose Instruction: APPLY TOPICALLY TO THE AFFECTED AREA(S) ONCE DAILY, LATHER,LEAVE IN PLACE FOR 5 MINUTES THEN RINSE OUT Rx Instructions: APPLY TOPICALLY TO THE AFFECTED AREA(S) ONCE DAILY, LATHER,LEAVE IN PLACE FOR 5 MINUTES THEN RINSE OUT meclizine 12.5 mg tablet 12.5 mg PO BID PRN (Reason: dizziness) Qty: 20 2RF ondansetron HCl 4 mg tablet 4 mg PO Q8H PRN (Reason: nausea and vomiting) Qty: 30 1RF cholecalciferol (vitamin D3) 50 mcg (2,000 unit) tablet 50 mcg PO DAILY Qty: 90 2RF lidocaine 5 % adhesive patch,medicated 1 patch topical DAILY Qty: 30 4RF Rx Instructions: leave on most painful area for up to 12 hrs levothyroxine 137 mcg tablet 137 mcg PO DAILY Qty: 90 1RF Follow-up/Referrals: Juliann Sequeira NP [Primary Care Provider] - Time of Disposition: 19:13
== END 2024-10-12 19:31 | disposition home or self-care (01) ==
PROVIDERS: Physician Assistant; Emergency Provider Physician Assistant; PCP Nurse Practitioner Family
DX: U07.1 COVID-19 (principal); Z79.82 Long term (current) use of aspirin; L93.0 Discoid lupus erythematosus; E55.9 Vitamin D deficiency, unspecified; E03.9 Hypothyroidism, unspecified; Z87.891 Personal history of nicotine dependence
CPT/HCPCS: 71046; 87637; 99283

== ENCOUNTER 2024-12-11 09:59 | Outpatient (CLI) | payer MEDICARE, MEDICAID, SELFPAY ==
--- NOTE | ~2024-12-11 | MM_ITS ---
EXAMINATION: MM screening aram BI w ashley HISTORY: Screening mammogram, family history of breast cancer in her daughter. TECHNIQUE: Craniocaudal and mediolateral oblique 3-D tomosynthesis images were obtained and synthetic 2-D images were generated. CAD analysis was submitted and interpreted. COMPARISON: 08/16/2023, 03/04/2022, 01/07/2021 BREAST PARENCHYMAL COMPOSITION:Not Dense. There are scattered areas of fibroglandular density. FINDINGS: No suspicious mass, calcification, or architectural distortion are identified in either jody ast to suggest malignancy. There has been no suspicious interval change. IMPRESSION: No mammographic evidence of malignancy. Recommend routine screening mammography in one year. BI-RADS Category 1: Negative Reviewed, dictated and finalized at location . OROLOGICAL TECHNICIAN
--- OUTSIDE RECORDS SUMMARY | 2024-12-11 11:22 | XMS_ITS | Clinical Summary ---
Author Organization [facility] Address [address] [place] [id number] Care Team Providers Care Video Production Engineer Name Role Phone Joel Diaz MD Primary Care Provider [phone] Social History Tobacco Use Types Packs/Day Years Used Date Smoking Tobacco: Never Assessed Comments Unknown Sex and Gender Information Value Date Recorded Sex Assigned at Not on file Legal Sex Female 7:15 PM CDT Gender Identity Not on file Sexual Orientation Not on file Plan of Treatment Health Maintenance Due Date Last Done Comments Colorectal Cancer Screening Colonoscopy (10 Years) 1957 Hepatitis C 1975 DTaP, Tdap and Td Vaccines ( 1 - Tdap) 1976 Mammogram Screening 1997 Zoster Vaccines (1 of 2) 2007 Dexa Scan (General) 2022 Pneumococcal Vaccine: 65+ Ye ars (1 of 1 - PCV) 2022 COVID-19 Vaccine ( - 2023-2 5 season) 2024 Influenza Adult (#1) 2024 RSV Immunization or 60+ Years (1 - 1-dose 75+ series) 2032 Meningococcal B Vaccine Aged Out No l onger eligible based on patient's age to complete this topic Meningococcal Vaccine Aged Out No deion rajan eligible based on patient's age to complete this topic RSV Immunizations Under 20 Months Aged Out No longer eligible based on patient's age to complete this topic Care Teams Video Production Engineer Relationship Specialty Start Date End Date Joel Diaz MD PCP - General 01/03/15
--- OUTSIDE RECORDS SUMMARY | 2024-12-11 11:23 | XMS_ITS | Clinical Summary ---
Author Organization [facility] Address [address] [place] [address] Care Team Providers Care Sack Repairer Name Role Phone Juliann Sequeira APRN-C++ PROFESSOR Primary Care Provider Source Comments [facility],non-owned Affiliates and Associated Physician Practices is amultiple site organization consisting of ambulatory clinics and hospital sitesin [place], [place], [place] and [place]. This disclosure is being madepursuant to the Care Everywhere program and may not contain all information available regarding this patient. Last updated 18.[facility] Allergies No known active allergies Medications * Be aware that medications may not be up to date on this document. Alwaysverify current medications with the patient. Medication Sig Dispensed Refills Start Date End Date Status aspirin (ASPIRIN) 81 MG tablet Take 1 (one) tablet by mouth once daily Active ondansetron (ZOFRAN) 4 MG tablet Take 1 (one) tablet by mouth every 8 hours as needed 0 07/16/2019 Active meclizine (ANTIVERT) 12.5 MG tablet Take 1 (one) tablet by mouth once daily as needed 09/05/2020 Active levothyroxine (Synthroid) 137 MCG tablet Take 1 (one) tablet by mouth once daily 12/10/2022 Active ketoconazole (Nizoral) 2 % shampooIndications: Other seborrheic dermatitis APPLY TOPICALLY TO WET HAIR, LEAVE ON FOR 3 MINUTES THEN RINS. THREE TIMES WEEKLY 120 mL 5 06/08/2023 Active clobetasol (Temovate) 0.05 % solutionIndications :Discoid lupus erythematosus APPLY SOLUTION TOPICALLY TO ITCHY AREA OF THE SCALP TWICE DAILY 50 mL 5 06/08/2023 Active Vitamin D3, cholecalciferol, 50 MCG (2000 UT) tablet Take 1 (one) tablet by mouth once daily 08/02/2023 Active meloxicam (Mobic) 15 MG tabletIndications:D iscoid lupus,Arthralgia, unspecified joint Take 1 tablet by mouth once daily 90 tablet 1 11/13/2023 Active albuterol HFA (Proventil; Ventolin; Proair) 108 (90 Base) MCG/ACT inhaler INHALE 2 PUFFS BY MOUTH 4 TIMES DAILY NEEDED FOR SHORTNESS OF BREATH FOR WHEEZING 11/20/2023 Active DULoxetine (Cymbalta) 30 MG capsule 04/20/2024 Active lidocaine (Lidoderm) 5 % patch USE 1 PATCH EXTERNALLY ONCE DAILY LEAVE ON MOST PAINFUL AREA FOR UP TO 12 HOURS 03/19/2024 Active hydroxychloroquine (Plaquenil) 200 MG tabletIndications:D iscoid lupus Take 1 (one) tablet by mouth 2 times daily 180 tablet 3 11/15/2024 Active hydroxychloroquine (Plaquenil) 200 MG tabletIndications:D iscoid lupus Take 1 (one) tablet by mouth 2 times daily 180 tablet 3 02/03/2023 5 Discontinue d(Reorder) neomycin-polymyxin- dexameth (Maxitrol) ophthalmic suspension 11/07/2024 5 Discontinue d(List Clean-Up) Active Problems Problem Noted Date Diagnosed Date Other age-related incipient cataract, unspecifie d eye 01/06/2023 Systemic lupus erythematosus 01/06/2023 Hyperpigmentation due to hydroxychloroquine ther apy 08/05/2021 Other seborrheic dermatitis 08/05/2021 Other adjunct faculty for medical terminology (current) drug therapy 8 Pain in right shoulder 10/04/2017 Personal history of other infectious and parasit ic diseases 05/11/2017 Other sleep disorders 04/30/2017 Asymptomatic premature menopause 04/30/2017 Nocturia 04/30/2017 Asymptomatic menopausal state 04/30/2017 Sleep related leg cramps 04/30/2017 Hypersomnia due to medical condition 04/30/2017 Other specified hypothyroidism 04/30/2017 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 17 Overview (07/30/2020): Overview: The night-eating syndrome is distinct from the sleep-related eating disorder, which is similar to sleep walking and is characterized by frequent episodes of nocturnal eating, without conscious awareness, and is usually not associated with eating disorders during wake.\ Sleep talking 04/30/2017 Menopause present 04/30/2017 Premature menopause 04/30/2017 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 LAB OP DRAW STATION [address] [place] [address] Discharge Disposition: Home or Self Care 11/15/2024 9:20 AM LAB ASSISTANT Office Visit [facility] - Rheumatology [address] [place] [phone] Lacy Stevens MD Discoid lupus (Primary Dx); Encounter for monitoring of hydroxychloroquine therapy 11/15/2024 Travel 11/12/2024 Travel 10/14/2024 Refill [facility] - Dermatology [address] [place] [phone] Emily Gray MD Refill Request from Last 3 Months Family History Medical History Relation Name Comments None Known Brother Status: Alive Heart Disease Father Status: Deceas ed None Known Maternal Aunt None Known Maternal Grandfather Arthritis - Rheumatoid Maternal Grandmother Status: None Known Maternal Uncle Arthritis - Osteo Mother Diabetes Mother Status: Alive Diabetes - Type 2 Mother Hypertension Mother None Known Other None Known Paternal Aunt None Known Paternal Grandfather None Known Paternal Grandmother None Known Paternal Uncle Lupus Sister Status: d Allergy (Severe) Neg Hx Asthma Neg Hx CVA Neg Hx Cancer Neg Hx Cancer - Breast Neg Hx Cancer - Other Neg Hx Cancer - Skin, Melanoma Neg Hx Cancer - Skin, Non Melanoma Neg Hx Eczema Neg Hx Glaucoma Neg Hx Hemophilia Neg Hx Macular Degeneration Neg Hx Psoriasis Neg Hx Rashes/Skin Problems Neg Hx Relation Name Status Comments Brother Father Maternal Aunt Maternal Grandfather Maternal Grandmother Maternal Uncle Mother Other Paternal Aunt Paternal Grandfather Paternal Grandmother Paternal Uncle Sister Social History Tobacco Use Types Packs/Day Years Used Date Smoking Tobacco: Former Smokeless Tobacco: Never Tobacco Cessation:Counseling Given: Not Answered Comments:stopped in 2013 Alcohol Use Standard Drinks/Week Comments No 0 (1 standard drink = 0.6 oz pur e alcohol) PHQ-2 Answer Date Recorded Patient Health Questionnaire-2 Score 0 11/15/2024 Sex and Gender Information Value Date Recorded Sex Assigned at Female 02/15/2022 1:04 AM CDT Gender Identity Female 02/15/2022 1:04 AM CDT Sexual Orientation Not on file Last Filed Vital Signs Vital Sign Reading Time Taken Comments Blood Pressure 120/66 11/15/2024 9:16 AM LAB ASSISTANT Pulse 60 11/15/2024 9:16 AM LAB ASSISTANT Temperature 36.4 C (97.5 F) 11/15/2024 9:16 AM LAB ASSISTANT Respiratory Rate 18 02/02/2017 8:59 AM CDT Oxygen Saturation 93% 11/15/2024 9:16 AM LAB ASSISTANT Inhaled Oxygen Concentration - - Weight 111.6 kg (246 lb) 11/15/2024 9:16 AM LAB ASSISTANT Height 157.5 cm (5' 2 ) 11/15/2024 9:16 AM LAB ASSISTANT Body Mass Index 44.99 11/15/2024 9:16 AM LAB ASSISTANT Plan of Treatment Upcoming Encounters Date Type Department Care Team (Late st Contact Info) Description 04/24/2025 10:15 AM CDT Office Visit [facility] - Ophthalmology [address] [place] [phone] Roman Jasso MD [address] [place] [address] [place] [phone] 11/14/2025 9:00 AM LAB ASSISTANT Office Visit [facility] - Rheumatology [address] [place] [address], [place] [address] Lacy Stevens MD [address] [place] [address] [place] [phone] Health Maintenance Due Date Last Done Comments BONE DENSITY TESTING 1955 COLOGUARD (AGES 45-75) - COLON CA SCREENING 1957 COLON MONITORING 1957 COLONOSCOPY - COLON CA SCREENING 1957 CT COLONOGRAPHY - COLON CA SCREENING 1957 Colorectal Cancer Screening 1957 FIT - COLON CA SCREENING 1957 FLEX SIG - COLON CA SCREENING 1957 LIPID TESTING 1957 MAMMOGRAM 1957 HEPATITIS C SCREENING 12/07/1975 DTAP/TDAP/TD VACCINES (1 - Tdap) 1976 PNEUMOCOCCAL VACCINE 50+ (1 of 1 - PCV) 2007 ZOSTER VACCINE (1 of 2) 2007 Respiratory Syncytial Virus (RSV) Vaccine Pt: or over 60 yrs (1 - Risk 60-74 years 1-dose series) 2017 COVID-19 VACCINE (1 - 2023- season) 2024 INFLUENZA VACCINE (#1) 2024 MEDICARE AWV CALENDAR YEAR 2024 SCREENING FOR DIABETES 11/15/2027 , 02/03/2023, 12/21/2021, Additional history exists DEPRESSION SCREENING Completed 11/15/2024, 09/19/20 23 HEPATITIS B VACCINE Aged Out No longe r eligible based on patient's age to complete this topic HIB VACCINE Aged Out No longer eligi ble based on patient's age to complete this topic HPV VACCINE Aged Out No longer eligi ble based on patient's age to complete this topic MENINGOCOCCAL (Group B) VACCINE Aged Out No longer eligible based on patient's age to complete this topic MENINGOCOCCAL VACCINE Aged Out No deion rajan eligible based on patient's age to complete this topic Procedures Procedure Name Priority Date/Time Associated Diagnosis Comments PROTEIN CREATININE RATIO URINE RANDOM PNL Routine 11/15/2024 10:58 AM LAB ASSISTANT Discoid lupus URINALYSIS W/MICROSCOPIC REFLEX TO CULTURE Routine 11/15/2024 10:58 AM LAB ASSISTANT Discoid lupus COMPREHENSIVE METABOLIC PANEL Routine 11/15/2024 10:43 AM LAB ASSISTANT Discoid lupus CBC W AUTO DIFFERENTIAL Routine 11/15/2024 10:43 AM [facility] Discoid lupus from Last 3 Months Results * (ABNORMAL) URINALYSIS W/MICROSCOPIC REFLEX TO CULTURE (11/15/2024 10:58 AM LAB ASSISTANT) Color UA Yellow Straw, Yellow 11/15/2024 11:11 AM [facility] Clarity UA Clear Clear 11/15/2024 11:11 AM [facility] Specific [place] UA 1.011 1.005 - 1.030 11/15/2024 11:11 AM [facility] pH UA 5.0 5.0 - 8.0 pH 11/15/2024 11:11 AM [facility] Protein UA Negative Negative 11/15/2024 11:11 AM [facility] Glucose UA Negative Negative 11/15/2024 11:11 AM [facility] Ketone UA Negative Negative 11/15/2024 11:11 AM [facility] Bilirubin UA Negative Negative 11/15/2024 11:11 AM [facility] Blood UA Negative Negative 11/15/2024 11:11 AM [facility] Nitrite UA Negative Negative 11/15/2024 11:11 AM [facility] Leukocyte Esterase Negative Negative 11/15/2024 11:11 AM [facility] Urobilinogen UA Negative Negative mg/dL 11/15/2024 11:11 AM [facility] RBC UA 0-2 None Seen, 0-2, 3-5 /HPF 11/15/2024 11:11 AM [facility] WBC UA 0-5 None Seen, 0-5 /HPF 11/15/2024 11:11 AM [facility] Bacteria UA 1+(A) None /HPF 11/15/2024 11:11 AM [facility] Squamous Epithelial Cells UA 0-2 None Seen, 0-2, 3-5 /HPF 11/15/2024 11:11 AM [facility] Mucus UA 3+ /LPF 11/15/2024 11:11 AM [facility] Urine URINE SPECIMEN OBTAINED BY CLEAN CATCH PROCEDURE / Unknown Collection / Unknown 11/15/2024 10:58 AM LAB ASSISTANT 11/15/2024 11:04 AM [facility] Narrative [facility] - 11/15/2024 11:11 AM [facility] Culture Not Indicated Lacy Stevens MD LAB - URINALYSIS ORD ERABLES Performing Organization Address City/[facility]/ZIP Co de Phone Number [address] [address], [place] [phone] * PROTEIN CREATININE RATIO URINE RANDOM PNL (11/15/2024 10:58 AM LAB ASSISTANT) Protein Urine <7 Not Established mg/dL 11/15/2024 11:44 AM [facility] Creatinine Urine 132.78 Not Established mg/dL 11/15/2024 11:44 AM [facility] Protein/Creatinin e Ratio Urine 11/15/2024 11:44 AM [facility] Comment:Unable to calculate ratio because the analyte concentration is outside the instrument measuring range. Urine URINE SPECIMEN OBTAINED BY CLEAN CATCH PROCEDURE / Unknown Collection / Unknown 11/15/2024 10:58 AM LAB ASSISTANT 11/15/2024 11:07 AM LAB ASSISTANT Lacy Stevens MD LAB - URINE CHEMISTR Y ORDERABLES [address] [address], [place] [phone] * (ABNORMAL) CBC WITH DIFFERENTIAL (11/15/2024 10:43 AM [facility]) WBC 6.1 4.0 - 10.7 x10E9/L 11/15/2024 11:13 AM [facility] RBC Count 4.05 3.90 - 5.20 x10E12/L 11/15/2024 11:13 AM [facility] Hemoglobin 11.9 11.9 - 15.8 g/dL 11/15/2024 11:13 AM [facility] Hematocrit 34.9 34.8 - 46.1 % 11/15/2024 11:13 AM [facility] MCV 86.2 80.0 - 98.0 fL 11/15/2024 11:13 AM [facility] MCH 29.4 26.7 - 33.6 pg 11/15/2024 11:13 AM [facility] MCHC 34.1 31.7 - 36.3 g/dL 11/15/2024 11:13 AM [facility] RDW-CV 13.8 11.3 - 14.8 % 11/15/2024 11:13 AM [facility] Platelet Count 234 150 - 420 x10E9/L 11/15/2024 11:13 AM [facility] MPV 12.1(H) 7.8 - 11.4 fL 11/15/2024 11:13 AM [facility] Neutrophil % 55.6 41.0 - 74.0 % 11/15/2024 11:13 AM [facility] Lymphocyte % 33.5 17.0 - 47.0 % 11/15/2024 11:13 AM [facility] Monocyte % 7.7 3.0 - 11.0 % 11/15/2024 11:13 AM [facility] Eosinophil % 2.3 0.0 - 7.0 % 11/15/2024 11:13 AM [facility] Basophil % 0.7 0.0 - 1.6 % 11/15/2024 11:13 AM [facility] Immature Granulocytes % 0.2 0.0 - 1.0 % 11/15/2024 11:13 AM [facility] Neutrophil Absolute 3.39 1.60 - 7.50 x10E9/L 11/15/2024 11:13 AM [facility] Lymphocyte Absolute 2.04 1.00 - 4.40 x10E9/L 11/15/2024 11:13 AM [facility] Monocyte Absolute 0.47 0.15 - 1.00 x10E9/L 11/15/2024 11:13 AM [facility] Eosinophil Absolute 0.14 0.00 - 0.60 x10E9/L 11/15/2024 11:13 AM [facility] Basophil Absolute 0.04 0.00 - 0.13 x10E9/L 11/15/2024 11:13 AM [facility] Blood BLOOD SPECIMEN / Unknown Lab Venipuncture / Unknown 11/15/2024 10:43 AM [facility] 11/15/2024 11:08 AM [facility] Lacy Stevens MD LAB - HEMATOLOGY ORD ERABLES [facility] [address] [place] [address], [facility] [phone] * (ABNORMAL) COMPREHENSIVE METABOLIC PANEL (11/15/2024 10:43 AM [facility]) BUN 8 7 - 26 mg/dL 11/15/2024 11:43 AM [facility] Creatinine 0.94 0.56 - 0.96 mg/dL 11/15/2024 11:43 AM [facility] Sodium 143 136 - 145 mmol/L 11/15/2024 11:43 AM [facility] Potassium 3.4(L) 3.5 - 4.5 mmol/L 11/15/2024 11:43 AM [facility] Chloride 108(H) 98 - 107 mmol/L 11/15/2024 11:43 AM [facility] CO2 25 22 - 29 mmol/L 11/15/2024 11:43 AM [facility] Glucose 97 70 - 99 mg/dL 11/15/2024 11:43 AM [facility] Calcium 9.3 8.4 - 10.2 mg/dL 11/15/2024 11:43 AM [facility] Protein Total 7.5 6.0 - 8.3 g/dL 11/15/2024 11:43 AM [facility] Albumin 3.7 3.4 - 5.0 g/dL 11/15/2024 11:43 AM [facility] Bilirubin Total 0.7 0.2 - 1.2 mg/dL 11/15/2024 11:43 AM [facility] Alkaline Phosphatase 81 40 - 150 U/L 11/15/2024 11:43 AM [facility] ALT 12 5 - 55 U/L 11/15/2024 11:43 AM [facility] AST 16 5 - 34 U/L 11/15/2024 11:43 AM [facility] Anion Gap 10 6 - 16 11/15/2024 11:43 AM [facility] BUN/Creatinine Ratio 9 7 - 23 11/15/2024 11:43 AM [facility] Osmolality Calculated 294 275 - 295 mOsm/kg 11/15/2024 11:43 AM [facility] Albumin/Globulin Ratio 1.0(L) 1.1 - 2.3 11/15/2024 11:43 AM [facility] eGFR by CKD-EPI 67(L) >=90 mL/min/1.7 3 m2 11/15/2024 11:43 AM [facility] Blood BLOOD SPECIMEN / Unknown Lab Venipuncture / Unknown 11/15/2024 10:43 AM [facility] 11/15/2024 11:08 AM [facility] Lacy Stevens MD LAB - CHEMISTRY [facility] Organization Address City/State/ZIP Co de Phone Number [facility] [address] [place] [address], [facility] [phone] from Last 3 Months Care Teams Sack Repairer Relationship Specialty Start Date End Date Juliann Sequeira, LOGISTICS LOSS PREVENTION MANAGER-C++ PROFESSOR [address] [place] [address] PCP - General 11/14/19
--- OUTSIDE RECORDS SUMMARY | 2024-12-11 11:23 | XMS_ITS | Referral Summary ---
Author Organization [facility] Address [address] [place] [address] Care Team Providers Care Jail Keeper Name Role Phone Juliann Sequeira Fernanda IZQUIERDO-CONTINUOUS IMPROVEMENT ENGINEER Primary Care Provider Source Comments [facility],non-owned Affiliates and Associated Physician Practices is amultiple site organization consisting of ambulatory clinics and hospital sitesin [place], [place], [place] and [place]. This disclosure is being madepursuant to the Care Everywhere program and may not contain all information available regarding this patient. Last updated 18.[facility] Encounters Date Type Department Care Team Description 11/15/2024 9:48 AM SENIOR JAVA UI DEVELOPER - 11/15/2024 11:59 PM SENIOR JAVA UI DEVELOPER Hospital Encounter [facility] [address] [place] [phone] Discharge Disposition: Home or Self Care 11/15/2024 Travel 11/15/2024 9:20 AM SENIOR JAVA UI DEVELOPER Office Visit [facility] - Rheumatology [address] [place] [phone] Lacy Stevens MD Discoid lupus (Primary Dx); Encounter for monitoring of hydroxychloroquine therapy 11/12/2024 Travel 10/14/2024 Refill [facility] - Dermatology [address] [place] [address], [place] [address] Emily Gray MD Refill Request from Last 3 Months Allergies No known active allergies Medications * [...] 2 times daily 180 tablet 3 02/03/2023 Discontinue d(Reorder) neomycin-polymyxin- dexameth (Maxitrol) ophthalmic suspension 11/07/2024 Discontinue d(List Clean-Up) Active Problems Problem Noted Date Diagnosed Date Other age-related incipient cataract, unspecifie d eye 01/06/2023 Systemic lupus erythematosus 01/06/2023 Hyperpigmentation due to hydroxychloroquine ther apy 08/05/2021 Other seborrheic dermatitis 08/05/2021 Other termite control servicer (current) drug therapy 8 Pain in right [...] Positive TASHA (antinuclear antibody) 12/17/2015 Polyarthralgia 12/17/2015 Social History Tobacco Use Types Packs/Day Years [...] Comments Blood Pressure 120/66 11/15/2024 9:16 AM SENIOR JAVA UI DEVELOPER Pulse 60 11/15/2024 9:16 AM SENIOR JAVA UI DEVELOPER Temperature 36.4 C (97.5 F) 11/15/2024 9:16 AM SENIOR JAVA UI DEVELOPER Respiratory Rate 18 02/02/2017 8:59 AM CDT Oxygen Saturation 93% 11/15/2024 9:16 AM SENIOR JAVA UI DEVELOPER Inhaled Oxygen Concentration - - Weight 111.6 kg (246 lb) 11/15/2024 9:16 AM SENIOR JAVA UI DEVELOPER Height 157.5 cm (5' 2 ) 11/15/2024 9:16 AM SENIOR JAVA UI DEVELOPER Body Mass Index 44.99 11/15/2024 9:16 AM SENIOR JAVA UI DEVELOPER Plan of Treatment Upcoming Encounters Date Type Department Care Team (Late st Contact Info) Description 04/24/2025 10:15 AM CDT Office Visit [facility] - Ophthalmology [address] [place] [phone] Roman Jasso MD [address] [place] [address] [place] [phone] 11/14/2025 9:00 AM SENIOR JAVA UI DEVELOPER Office Visit [facility] - Rheumatology [address] [place] [phone] Lacy Stevens MD [address] [place] [address] [place] [phone] Procedures Procedure Name Priority Date/Time Associated Diagnosis Comments PROTEIN CREATININE RATIO URINE RANDOM PNL Routine 11/15/2024 10:58 AM SENIOR JAVA UI DEVELOPER Discoid lupus URINALYSIS W/MICROSCOPIC REFLEX TO CULTURE Routine 11/15/2024 10:58 AM SENIOR JAVA UI DEVELOPER Discoid lupus COMPREHENSIVE METABOLIC PANEL Routine 11/15/2024 10:43 AM SENIOR JAVA UI DEVELOPER Discoid lupus CBC W AUTO DIFFERENTIAL Routine 11/15/2024 10:[address] [facility] Discoid lupus from Last 3 Months Results * (ABNORMAL) URINALYSIS W/MICROSCOPIC REFLEX TO CULTURE (11/15/2024 10:[address] [facility]) Color UA Yellow Straw, Yellow 11/15/2024 11:11 AM [facility] Clarity UA Clear Clear 11/15/2024 11:11 AM [facility] Specific [place] UA 1.011 1.005 - 1.030 11/15/2024 11:11 AM [facility] pH UA 5.0 5.0 - 8.0 pH 11/15/2024 11:11 AM [facility] Protein UA Negative Negative 11/15/2024 11:11 AM [facility] Glucose UA Negative Negative 11/15/2024 11:11 AM [facility] Ketone UA Negative Negative 11/15/2024 11:11 AM [facility] Bilirubin UA Negative Negative 11/15/2024 11:11 AM [facility] Blood UA Negative Negative 11/15/2024 11:11 AM [facility] Nitrite UA Negative Negative 11/15/2024 11:11 AM [facility] Leukocyte Esterase Negative Negative 11/15/2024 11:11 AM [facility] Urobilinogen UA Negative Negative mg/dL 11/15/2024 11:11 AM [facility] RBC UA 0-2 None Seen, 0-2, 3-5 /HPF 11/15/2024 11:11 AM [facility] WBC UA 0-5 None Seen, 0-5 /HPF 11/15/2024 11:11 AM [facility] Bacteria UA 1+(A) None /HPF 11/15/2024 11:11 AM [facility] Squamous Epithelial Cells UA 0-2 None Seen, 0-2, 3-5 /HPF 11/15/2024 11:11 AM [facility] Mucus UA 3+ /LPF 11/15/2024 11:11 AM [facility] Urine URINE SPECIMEN OBTAINED BY CLEAN CATCH PROCEDURE / Unknown Collection / Unknown 11/15/2024 10:58 AM SENIOR JAVA UI DEVELOPER 11/15/2024 11:04 AM SENIOR JAVA UI DEVELOPER Narrative [facility] - 11/15/2024 11:11 AM SENIOR JAVA UI DEVELOPER Culture Not Indicated Lacy Stevens MD LAB - URINALYSIS ORD ERABLES Performing Organization Address [facility]/ZIP Co de Phone Number [facility] [address] [place] [address], [facility] [phone] * PROTEIN CREATININE RATIO URINE RANDOM PNL (11/15/2024 10:58 AM SENIOR JAVA UI DEVELOPER) Pathologist [facility] Protein Urine <7 Not Established mg/dL 11/15/2024 11:44 AM [facility] Creatinine Urine 132.78 Not Established mg/dL 11/15/2024 11:44 AM [facility] Protein/Creatinin e Ratio Urine 11/15/2024 11:44 AM [facility] Comment:Unable to calculate ratio because the analyte concentration is outside the instrument measuring range. Urine URINE SPECIMEN OBTAINED BY CLEAN CATCH PROCEDURE / Unknown Collection / Unknown 11/15/2024 10:58 AM SENIOR JAVA UI DEVELOPER 11/15/2024 11:07 AM SENIOR JAVA UI DEVELOPER Lacy Stevens MD LAB - URINE CHEMISTR Y ORDERABLES Performing Organization Address [facility]/ZIP Co de Phone Number [facility] [address] [place] [phone], [facility] [phone] * (ABNORMAL) CBC WITH DIFFERENTIAL (11/15/2024 10:43 AM SENIOR JAVA UI DEVELOPER) Pathologist [facility] WBC 6.1 4.0 - 10.7 x10E9/L 11/15/2024 11:13 AM [facility] RBC Count 4.05 3.90 - 5.20 x10E12/L 11/15/2024 11:13 AM [facility] Hemoglobin 11.9 11.9 - 15.8 g/dL 11/15/2024 11:13 AM [facility] Hematocrit 34.9 34.8 - 46.1 % 11/15/2024 11:13 AM [facility] MCV 86.2 80.0 - 98.0 fL 11/15/2024 11:13 AM [facility] MCH 29.4 26.7 - 33.6 pg 11/15/2024 11:13 AM [facility] MCHC 34.1 31.7 - 36.3 g/dL 11/15/2024 11:13 AM [facility] RDW-CV 13.8 11.3 - 14.8 % 11/15/2024 11:13 AM [facility] Platelet Count 234 150 - 420 x10E9/L 11/15/2024 11:13 AM [facility] MPV 12.1(H) 7.8 - 11.4 fL 11/15/2024 11:13 AM [facility] Neutrophil % 55.6 41.0 - 74.0 % 11/15/2024 11:13 AM [facility] Lymphocyte % 33.5 17.0 - 47.0 % 11/15/2024 11:13 AM [facility] Monocyte % 7.7 3.0 - 11.0 % 11/15/2024 11:13 AM [facility] Eosinophil % 2.3 0.0 - 7.0 % 11/15/2024 11:13 AM [facility] Basophil % 0.7 0.0 - 1.6 % 11/15/2024 11:13 AM [facility] Immature Granulocytes % 0.2 0.0 - 1.0 % 11/15/2024 11:13 AM [facility] Neutrophil Absolute 3.39 1.60 - 7.50 x10E9/L 11/15/2024 11:13 AM [facility] Lymphocyte Absolute 2.04 1.00 - 4.40 x10E9/L 11/15/2024 11:13 AM [facility] Monocyte Absolute 0.47 0.15 - 1.00 x10E9/L 11/15/2024 11:13 AM [facility] Eosinophil Absolute 0.14 0.00 - 0.60 x10E9/L 11/15/2024 11:13 AM [facility] Basophil Absolute 0.04 0.00 - 0.13 x10E9/L 11/15/2024 11:13 AM [facility] Blood BLOOD SPECIMEN / Unknown Lab Venipuncture / Unknown 11/15/2024 10:[address] [facility] 11/15/2024 11:08 AM SENIOR JAVA UI DEVELOPER Lacy Setvens MD LAB - HEMATOLOGY ORD ERABLES [facility] [address] [place] [address], [facility] [phone] * (ABNORMAL) COMPREHENSIVE METABOLIC PANEL (11/15/2024 10:[address] [facility]) BUN 8 7 - 26 mg/dL 11/15/2024 11:43 AM [facility] Creatinine 0.94 0.56 - 0.96 mg/dL 11/15/2024 11:43 AM [facility] Sodium 143 136 - 145 mmol/L 11/15/2024 11:43 AM [facility] Potassium 3.4(L) 3.5 - 4.5 mmol/L 11/15/2024 11:43 AM [facility] Chloride 108(H) 98 - 107 mmol/L 11/15/2024 11:43 AM [facility] CO2 25 22 - 29 mmol/L 11/15/2024 11:43 AM [facility] Glucose 97 70 - 99 mg/dL 11/15/2024 11:43 AM [facility] Calcium 9.3 8.4 - 10.2 mg/dL 11/15/2024 11:43 AM [facility] Protein Total 7.5 6.0 - 8.3 g/dL 11/15/2024 11:43 AM [facility] Albumin 3.7 3.4 - 5.0 g/dL 11/15/2024 11:43 AM [facility] Bilirubin Total 0.7 0.2 - 1.2 mg/dL 11/15/2024 11:43 AM [facility] Alkaline Phosphatase 81 40 - 150 U/L 11/15/2024 11:43 AM [facility] ALT 12 5 - 55 U/L 11/15/2024 11:43 AM [facility] AST 16 5 - 34 U/L 11/15/2024 11:43 AM [facility] Anion Gap 10 6 - 16 11/15/2024 11:43 AM [facility] BUN/Creatinine Ratio 9 7 - 23 11/15/2024 11:43 AM [facility] Osmolality Calculated 294 275 - 295 mOsm/kg 11/15/2024 11:43 AM [facility] Albumin/Globulin Ratio 1.0(L) 1.1 - 2.3 11/15/2024 11:43 AM [facility] eGFR by CKD-EPI 67(L) >=90 mL/min/1.7 3 m2 11/15/2024 11:43 AM [facility] Blood BLOOD SPECIMEN / Unknown Lab Venipuncture / Unknown 11/15/2024 10:43 AM SENIOR JAVA UI DEVELOPER 11/15/2024 11:[address] [facility] Lacy Stevens MD LAB - CHEMISTRY MADDY PAUL [facility] [address] [place] [address] [phone] from Last 3 Months Care Teams Jail Keeper Relationship Specialty Start Date End Date Juliann Sequeira, BOW STAPLER-CONTINUOUS IMPROVEMENT ENGINEER [address] [place] [address] PCP - General 11/14/19
--- OUTSIDE RECORDS SUMMARY | 2024-12-11 11:23 | XMS_ITS | Data Portability ---
Author Organization [place] [facility] [employer], Main Office Address [address] [place] [address] Care Team Providers Care Business Operations Director Name Role Phone EMILIO PATEL Referring Provider Assessment Encounter Date Assessment Date Assessment LastModified by Organization Details LastModified Time 03/03/2023 03/03/2023 This note is dictated and transcribed by [employer]. Casting Technician variances may occur. Despite proofreading, typographical errors may occur. Not available 03/03/2023 11:13:34 08/02/2023 08/02/2023 This note is dictated and transcribed by [employer]. Casting Technician variances may occur. Despite proofreading, typographical errors may occur. Not available 08/02/2023 12:47:55 Plan of Treatment Reminders Order Date Submit Date Provider Last Modified By Organization Details Last Modified Time Details Appointments None record ed. Lab None record ed. Referral None record ed. Procedures None record ed. Surgeries None record ed. Imaging None record ed. Medication Orders None record ed. Patient TargetsNo targets recorded. Patient InstructionsNo instructions recorded. Reason for Referral None Reported. Problems Name Problem SNOMED Code Status Onset Date Resolution Date Notes Provider Name and Address Organization Details Recorded Time Plantar fasciitis of right foot 1010603156442 9101 Active 2021 Not Available [facility] 3 00:29:52 Congenital pes planus 73451337 Active 2022 Not Available [facility] 3 00:29:52 Pain in right foot 8416751564458 07 Active 2021 Not Available [facility] 3 00:29:52 Right Achilles tendinitis 7597226578211 02 Active 2022 Pedro Grier DPM [address], [place], [address] , [facility] 3 14:44:25 Tendinosis 386125486 Active 2022 Pedro BENJAMIN Grier [address], [place], [address] , [facility] 3 12:48:01 Problem Notes None recorded. Procedures Surgical History Date Name Laterality Status Provider Name and Address Organization Details Recorded Time 3 Plantar Fascia Injection Right Foot completed Pedro Grier BENJAMIN [address], [address], [place], [address], [facility] 03/03/2023 11:23:50 Imaging Results None recorded. Procedure Notes None recorded. Medical Equipment None Reported. Medications Name Sig Start Date Stop Date Status Note LastModified by Organization Details LastModified Time levothyroxine 137 mcg tablet TAKE 1 TABLET BY MOUTH ONCE DAILY active Not Available Not Available No t Available ketoconazole 2 % shampoo APPLY TOPICALLY TO WET HAIR,LEAVE ON FOR 3 MINUTES THEN RINSE.USE 3 TIMES WEEKLY active Not Available Not Available No t Available cetirizine 10 mg tablet TAKE 1 TABLET BY MOUTH ONCE DAILY active Not Available Not Available No t Available benzonatate 200 mg capsule TAKE 1 CAPSULE BY MOUTH THREE TIMES DAILY NEEDED FOR COUGH active Not Available Not Available No t Available hydrocodone 5 mg-acetaminop hen 325 mg tablet TAKE 1 TABLET BY MOUTH ONCE DAILY NEEDED FOR PAIN active Not Available Not Available No t Available fluocinonide 0.05 % topical gel APPLY TO SORE IN MOUTH 3 TIMES DAILY NEEDED.RUB IN FOR 30 SECONDS.DO NOT EAT OR DRINK FOR 30 MINUTES. active Not Available Not Available No t Available meloxicam 15 mg tablet TAKE 1 TABLET BY MOUTH ONCE DAILY active Not Available Not Available No t Available ondansetron HCl 4 mg tablet TAKE 1 TABLET BY MOUTH EVERY 8 HOURS NEEDED FOR NAUSEA AND VOMITING active Not Available Not Available No t Available meclizine 12.5 mg tablet TAKE 1 TABLET BY MOUTH TWICE DAILY NEEDED FOR DIZZINESS active Not Available Not Available No t Available tramadol 50 mg tablet TAKE 1 TABLET BY MOUTH EVERY 12 HOURS NEEDED FOR PAIN active Not Available Not Available No t Available meloxicam 7.5 mg tablet active Not Available Not Available No t Available Euthyrox 112 mcg tablet active Not Available Not Available N ot Available levothyroxine 125 mcg tablet active Not Available Not Available Not Available halobetasol propionate 0.05 % topical ointment APPLY OINTMENT TOPICALLY TO AFFECTED AREA ON SCALP TWICE DAILY NEEDED active Not Available Not Available No t Available clobetasol 0.05 % topical ointment APPLY TOPICALLY TO AFFECTED AREA ON SCALP TWICE DAILY active Not Available Not Available No t Available hydroxychloro quine 200 mg tablet TAKE 1 TABLET BY MOUTH TWICE DAILY active Not Available Not Available No t Available clobetasol 0.05 % scalp solution APPLY TOPICALLY TO ITCHY AREA(S)OF SCALP TWICE DAILY active Not Available Not Available No t Available amoxicillin 875 mg-potassium clavulanate 125 mg tablet TAKE 1 TABLET BY MOUTH TWICE DAILY active Not Available Not Available No t Available nabumetone 500 mg tablet TAKE 1 TABLET BY MOUTH TWICE DAILY active Not Available Not Available No t Available duloxetine 30 mg capsule,delay ed release TAKE 1 CAPSULE BY MOUTH ONCE DAILY active Not Available Not Available No t Available hydrocodone 5 mg-acetaminop hen 300 mg tablet TAKE 1 TABLET BY MOUTH ONCE DAILY NEEDED FOR PAIN active Not Available Not Available No t Available cholecalcifer ol (vitamin D3) 1,250 mcg (50,000 unit) capsule TAKE 1 CAPSULE BY MOUTH ONCE A WEEK active Not Available Not Available No t Available BinaxNOW COVID-19 Ag Self Test kit Use as Directed on the Package active Not Available Not Available No t Available Vitals Date Recorded Body mass index (BMI) Body height Body weight Provider Name and Address Organization Details Last Updated DateTime 09/16/2022 45.3 kg/m2 154.94 cm 082224.17 g Not Available [facility] 12/16/2022 00:29:17 Date Recorded Body mass index (BMI) Body height Oxygen saturation Oxygen saturation in Arterial blood by Pulse oximetry Heart rate Respiratory rate Body weight Systolic blood pressure Diastolic blood pressure Provider Name and Address Organization Details Last Updated DateTime 3 45.3 kg/m2 154.94 cm 99 % 99 % 59 /min 16 /min 325687. 17 g 117 mm[Hg] 77 mm[Hg] Not Available [facility] 00:29:16 Date Recorded Body height Provider Name an d Address Organization Details Last Updated DateTime 03/03/2023 154.94 cm Toshia Mayfield [facility] [employer] [facility] 03/03/2023 10:57:00 Date Recorded Body height Heart rate Respiratory rate Oxygen saturation Oxygen saturation in Arterial blood by Pulse oximetry Systolic blood pressure Diastolic blood pressure Provider Name and Address Organization Details Last Updated DateTime 3 154.94 cm 60 /min 14 /min 98 % 98 % 152 mm[Hg] 92 mm[Hg] Toshia Mayfield [facility] [employer] [facility] 3 11:17:23 Date Recorded Body height Heart rate Respiratory rate Oxygen saturation Oxygen saturation in Arterial blood by Pulse oximetry Systolic blood pressure Diastolic blood pressure Provider Name and Address Organization Details Last Updated DateTime 3 154.94 cm 69 /min 14 /min 98 % 98 % 135 mm[Hg] 87 mm[Hg] Toshia Mayfield [facility] [employer] [facility] 3 10:45:39 Social History None recorded. Functional Status None recorded. Mental Status None recorded. Family History Nothing Reported. Medical History Condition Response THYROID DISEASE Y ARTHRITIS Y Gynecological HistoryNo gynecological history recorded. Obstetrics History GPAL:G 0 P 0 0 0 0 Past Encounters Encounter ID Performer Location Encounter Start Date Encounter Closed Date Diagnosis/Indication Diagnosis SNOMED-CT Code Diagnosis ICD10 Code Diagnosis Note [id number] _KOSTA_M IGRATION_ DEFAULT_1 _1 , 2021 00:00:00 12/13/2021 14:42:15 [id number] _ATHENA_M IGRATION_ DEFAULT_1 _1 , 03/05/2022 00:00:00 03/07/2022 13:12:07 [id number] _ATHENA_M IGRATION_ DEFAULT_1 _1 , 04/23/2022 00:00:00 04/25/2022 15:11:17 [id number] [facility] [place] [address] [place] [address] 09/16/2022 00:00:00 09/16/2022 13:16:41 [id number] [facility] [place] [address] [place] [address] 11/02/2022 00:00:00 11/02/2022 12:52:07 [id number] Pedro Grier DPM [facility] [address], [facility] [address] [place] [address] 03/03/2023 10:47:14 03/03/2023 11:40:06 Plantar fasciitis of right foot 3440983569 0817203 M72.2 M79.671 70% improvedin jection today, right plantar heelcontin ue stretching and icing instructio nscontinue supportive shoe gear Congenital pes planus 23 091261 Q66.50 pending custom orthoticsC ontinue supportive shoe gear [id number] Pedro Grier DPM [facility] [address], [facility] [address] [place] [address] 05/24/2023 11:09:26 05/24/2023 15:09:40 Right Achilles tendinitis 5658660380 44716 M76.61 Rx physical therapyRic e therapyrev iewed the importance daily stretching to prevent recurrence Follow-up after therapy [id number] Pedro Grier DPM [facility] [address], [facility] [address] [place] [address] 08/02/2023 10:41:08 08/02/2023 14:40:03 Right Achilles tendinitis 5906493846 62981 M76.61 No pain todayRx physical therapy, finishcont inue at-home physical therapyrec ommend supportive shoe gear such as new balanceRic e therapy as neededMRI reviewed with the patientrec ommend no strenuous activities which could cause injury to the AchillesFo llow-up as needed Tendinosis 108837713 M67 .80 right Achilles tendon with partial intrasubst ance tear Health Concerns Section Related Observation LastModified by Organization Detai ls LastModified Time None Recorded Concern Status LastModified by Organization Details LastModified Time None Recorded Advance Directives Directive None Recorded Payers Encounter Date Sequence Insurance Name Policy Number Policy Curiel Covered Member ID Curiel Member ID Guarantor Name 03/03/2023 1 [place] Mitra Hernandez [id number] Mitra Hernandez 03/03/2023 2 [place] [facility] DEPARTMENT OF PUBLIC AID Mitra Hernandez [id number] Mitra Lopezon 05/24/2023 1 [place] Mitra Lopezon [id number] Mitra Lopezon 05/24/2023 2 [place] [facility] DEPARTMENT OF PUBLIC AID Mitra Hernandez [id number] Mitra Lopezon 08/02/2023 1 [place] Mitra Lopezon [id number] Mitra Lopezon 08/02/2023 2 [place] [facility] DEPARTMENT OF PUBLIC AID Mitra Hernandez [id number] Mitra Hernandez Notes Date Note Type Note Provider Name and Address Organization Details Recorded Time 03/03/2023 text/html Patient is a 67-year-old female who returns the office for follow-up on plantar fasciitis of the right foot. Patient was last seen on 11/02/2022. Patient states she has not obtained her orthotics but is scheduled to obtain them. Patient states that she has been going to physical therapy and doing stretching and icing instructions. Patient states the right heel is approximately 70% improved. Patient denies any other pedal complaints. Patient denies any signs of infection to the area. Patient states most of the pain is after she is standing for long periods. Pedro Grier DPM [address], [address], [place], [address], [facility] 03/03/2023 11:27:14 05/24/2023 text/html Patient is a 67-year-old female who presents the office with complaints of pain to her right Achilles area. Patient states that she is no longer having any plantar fasciitis pain. Patient states that when she was recently doing a lot of standing at hindu she noticed that she developed pain in her Achilles. Patient denies any bruising or injury to the area. Patient states now when she is walking she has pain that she explains is mild in nature. Patient states she does not perform daily stretching. Patient denies any other complaints Pedro Grier DPM [address], [place], [address], [facility] 05/24/2023 14:44:56 08/02/2023 text/html . Patient is a 67-year-old female who returns the office for follow-up on right Achilles tendinitis. Patient had an MRI which shows she had a small intrasubstance tear with tendinosis. Patient has been in physical therapy which she has completed and states that she is 90-95% improved. Patient states she is no longer having any significant pain only if she is on her feet for extended periods of time does she have pain. I explained that the patient needs to continue at-home physical therapy to prevent this from returning. If the pain seems to get worse then I will send her back to physical therapy. I did review the importance of continuing supportive shoe gear and stretching at home. Patient was also urged to stay way from strenuous activities to prevent injury to the tendon. Patient denies any other pedal complaints. Pedro Grier DPM [address] [address], [place], [address], [place] [facility] [place] [employer] [facility] 08/02/2023 12:48:21 OBGyn Episode No OBEpisode recorded.
--- OUTSIDE RECORDS SUMMARY | 2024-12-11 11:23 | XMS_ITS | Encounter Summary ---
Author Organization [facility] Health Address [address] [place] [address] Care Team Providers Care Processing Clerk Name Role Phone Juliann Sequeira Fernanda IZQUIERDO-EMERGENCY REGISTRAR Primary Care Provider Encounter Details Date Type Department Care Team (Late st Contact Info) Description 01/27/2023 Telephone [facility] [address] [place] [address], [place] [address] Marixa Corado MD [address] [place] [address] [address] [place] [address] Social History Tobacco Use Types Packs/Day Years Used Date Smoking Tobacco: Former Smokeless Tobacco: Never Comments:stopped in 2013 Alcohol Use Standard Drinks/Week Comments No 0 (1 standard drink = 0.6 oz pur e alcohol) PHQ-2 Answer Date Recorded PHQ2 TOTAL SCORE 0 12/21/2021 Sex and Gender Information Value Date Recorded Sex Assigned at Female 02/15/2022 1:04 AM CDT Gender Identity Female 02/15/2022 1:04 AM CDT Sexual Orientation Not on file documented as of this encounter Miscellaneous Notes * Telephone Encounter - Yamileth Barfield - 01/27/2023 1:32 PM CDT Pt was last seen in office was 02/03/22. She is now scheduled first available on 06/08/23 for her next ov. Can she please get the following refilled to last until she comes back in May: clobetasol (TEMOVATE) 0.05 % ointment clobetasol (TEMOVATE) 0.05 % solution hydroxychloroquine (Plaquenil) 200 MG tablet ketoconazole (NIZORAL) 2 % shampoo Everything goes to [facility] in [place] [place] documented in this encounter Plan of Treatment Upcoming Encounters Date Type Department Care Team (Late st Contact Info) Description 04/24/2025 10:15 AM CDT Office Visit [facility] - Ophthalmology [address] [place] [address], [place] [phone] Roman Jasso MD [address] [place] [address] [place] [phone] 11/14/2025 9:00 AM [employer] Office Visit [facility] - Rheumatology [address] [place] [address], [place] [phone] Lacy Stevens MD [address] [place] [address] [place] [address] documented as of this encounter Visit Diagnoses Not on filedocumented in this encounter Care Teams Processing Clerk Relationship Specialty Start Date End Date Juliann Sequeira, FELECIA-EMERGENCY REGISTRAR [address] [place] [address] PCP - General 11/14/19 documented as of this encounter
--- OUTSIDE RECORDS SUMMARY | 2024-12-11 11:23 | XMS_ITS | Patient Health Summary ---
Author Organization [facility] [place] Address [address] [place] [address] Care Team Providers Care Order Packer Or Packager Name Role Phone Juliann Sequeira Primary Care Provider Note from [facility],non-owned Affiliates and Associated Physician Practices is amultiple site organization consisting of ambulatory clinics and hospital sitesin [place], [place], [place] and [place]. This disclosure is being madepursuant to the Care Everywhere program and may not contain all information available regarding this patient. Last updated 18.[facility] Allergies No known active allergies Medications * Be aware that medications may not be up to date on this document. Alwaysverify current medications with the patient. * aspirin (ASPIRIN) 81 MG tablet Take 1 (one) tablet by mouth once daily * ondansetron (ZOFRAN) 4 MG tablet(Started 07/16/2019) Take 1 (one) tablet by mouth every 8 hours as needed * meclizine (ANTIVERT) 12.5 MG tablet(Started 09/05/2020) Take 1 (one) tablet by mouth once daily as needed * levothyroxine (Synthroid) 137 MCG tablet(Started 12/10/2022) Take 1 (one) tablet by mouth once daily * ketoconazole (Nizoral) 2 % shampoo(Started 06/08/2023) APPLY TOPICALLY TO WET HAIR, LEAVE ON FOR 3 MINUTES THEN RINS. THREE TIMES WEEKLY 5 refills by 06/07/2024 * clobetasol (Temovate) 0.05 % solution(Started 06/08/2023) APPLY SOLUTION TOPICALLY TO ITCHY AREA OF THE SCALP TWICE DAILY 5 refills by 06/07/2024 * Vitamin D3, cholecalciferol, 50 MCG (2000 UT) tablet(Started 08/02/2023) Take 1 (one) tablet by mouth once daily * meloxicam (Mobic) 15 MG tablet(Started 11/13/2023) Take 1 tablet by mouth once daily 1 refill by 11/12/2024 * albuterol HFA (Proventil; Ventolin; Proair) 108 (90 Base) MCG/ACT inhaler (Started 11/20/2023) INHALE 2 PUFFS BY MOUTH 4 TIMES DAILY NEEDED FOR SHORTNESS OF BREATH FOR WHEEZING * DULoxetine (Cymbalta) 30 MG capsule(Started 04/20/2024) * lidocaine (Lidoderm) 5 % patch(Started 03/19/2024) USE 1 PATCH EXTERNALLY ONCE DAILY LEAVE ON MOST PAINFUL AREA FOR UP TO 12 HOURS * hydroxychloroquine (Plaquenil) 200 MG tablet(Started 11/15/2024) Take 1 (one) tablet by mouth 2 times daily 3 refills by 11/15/2025 Ended Medications* hydroxychloroquine (Plaquenil) 200 MG tablet(Started 02/03/2023)(Discontinued) Take 1 (one) tablet by mouth 2 times daily 3 refills by 02/03/2024 * zazsoerz-pzgupumtg-jiiwxsia (Maxitrol) ophthalmic suspension(Started 11/07/2024)(Discontinued) Active Problems Problem Noted Date Diagnosed Date Other age-related incipient cataract, unspecifie d eye 01/06/2023 Systemic lupus erythematosus 01/06/2023 Hyperpigmentation due to hydroxychloroquine ther apy 08/05/2021 Other seborrheic dermatitis 08/05/2021 Other meterman (current) drug therapy 8 Pain in right shoulder 10/04/2017 Personal history of other infectious and parasit ic diseases 05/11/2017 Other sleep disorders 04/30/2017 Asymptomatic premature menopause 04/30/2017 Nocturia 04/30/2017 Asymptomatic menopausal state 04/30/2017 Sleep related leg cramps 04/30/2017 Hypersomnia due to medical condition 04/30/2017 Other specified hypothyroidism 04/30/2017 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 17 Sleep talking 04/30/2017 Menopause present 04/30/2017 Premature [...] Comments Blood Pressure 120/66 11/15/2024 9:16 AM GRAPHIC ART TECHNICIAN Pulse 60 11/15/2024 9:16 AM GRAPHIC ART TECHNICIAN Temperature 36.4 C (97.5 F) 11/15/2024 9:16 AM GRAPHIC ART TECHNICIAN Respiratory Rate 18 02/02/2017 8:59 AM CDT Oxygen Saturation 93% 11/15/2024 9:16 AM GRAPHIC ART TECHNICIAN Inhaled Oxygen Concentration - - Weight 111.6 kg (246 lb) 11/15/2024 9:16 AM GRAPHIC ART TECHNICIAN Height 157.5 cm (5' 2 ) 11/15/2024 9:16 AM GRAPHIC ART TECHNICIAN Body Mass Index 44.99 11/15/2024 9:16 AM GRAPHIC ART TECHNICIAN Procedures * PROTEIN CREATININE RATIO URINE RANDOM PNL(Performed 11/15/2024) Performed for Discoid lupus * URINALYSIS W/MICROSCOPIC REFLEX TO CULTURE(Performed 11/15/2024) Performed for Discoid lupus * COMPREHENSIVE METABOLIC PANEL(Performed 11/15/2024) Performed for Discoid lupus * CBC W AUTO DIFFERENTIAL(Performed 11/15/2024) Performed for Discoid lupus * ZARCO/GERIATRICS PHYSICIAN (AMBROSE) ANTIBODY IGG(Performed 02/03/2023) Performed for Discoid lupus * SS-B (SJOGREN'S) ANTIBODY(Performed 02/03/2023) Performed for Discoid lupus * TASHA BLOOD SINGLE PATTERN(Performed 02/03/2023) Performed for Discoid lupus * TASHA HEP-2 IGG BY IFA(Performed 02/03/2023) Performed for Discoid lupus * COMPLEMENT C3(Performed 02/03/2023) Performed for Discoid lupus * COMPLEMENT C4(Performed 02/03/2023) Performed for Discoid lupus * SS-B (SJOGREN'S) ANTIBODY(Performed 02/03/2023) Performed for Discoid lupus * ZARCO (SM) ANTIBODY AMBROSE(Performed 02/03/2023) Performed for Discoid lupus * DNA ANTIBODY DS CRITHIDIA TITER(Performed 02/03/2023) Performed for Discoid lupus * TASHA BLOOD SCREEN W/REFLEX TITER(Performed 02/03/2023) Performed for Discoid lupus * PROTEIN CREATININE RATIO URINE RANDOM PNL(Performed 02/03/2023) Performed for Discoid lupus * COMPREHENSIVE METABOLIC PANEL(Performed 02/03/2023) Performed for Discoid lupus * CBC W AUTO DIFFERENTIAL(Performed 02/03/2023) Performed for Discoid lupus * OPH VISUAL FIELD TEST SLU(Performed 01/06/2023) Performed for Glaucoma suspect of both eyes * OPH OCT TEST SLU(Performed 01/06/2023) Performed for Glaucoma suspect of both eyes * OPH OCT TEST SLU(Performed 10/27/2022) Performed for Long-term use of Plaquenil * OPH VISUAL FIELD TEST SLU(Performed 10/27/2022) Performed for Long-term use of Plaquenil * XR HIP RIGHT 2VW OR MORE(Performed 12/21/2021) Performed for Fall, initial encounter, Arthralgia, unspecified joint, Discoid lupus erythematosus, High risk medication use, Encounter for therapeutic drug level monitoring * XR KNEE RIGHT 3VW(Performed 12/21/2021) Performed for Fall, initial encounter, Arthralgia, unspecified joint, Discoid lupus erythematosus, High risk medication use, Encounter for therapeutic drug level monitoring * XR LUMBAR SPINE 2 OR 3VW(Performed 12/21/2021) Performed for Fall, initial encounter, Arthralgia, unspecified joint, Discoid lupus erythematosus, High risk medication use, Encounter for therapeutic drug level monitoring * URINALYSIS W/MICROSCOPIC NO CULTURE(Performed 12/21/2021) Performed for Fall, initial encounter, Arthralgia, unspecified joint, Discoid lupus erythematosus, High risk medication use, Encounter for therapeutic drug level monitoring * CBC W AUTO DIFFERENTIAL(Performed 12/21/2021) Performed for Fall, initial encounter, Arthralgia, unspecified joint, Discoid lupus erythematosus, High risk medication use, Encounter for therapeutic drug level monitoring * C-REACTIVE PROTEIN(Performed 12/21/2021) Performed for Fall, initial encounter, Arthralgia, unspecified joint, Discoid lupus erythematosus, High risk medication use, Encounter for therapeutic drug level monitoring * ERYTHROCYTE SEDIMENTATION RATE(Performed 12/21/2021) Performed for Fall, initial encounter, Arthralgia, unspecified joint, Discoid lupus erythematosus, High risk medication use, Encounter for therapeutic drug level monitoring * COMPREHENSIVE METABOLIC PANEL(Performed 12/21/2021) Performed for Fall, initial encounter, Arthralgia, unspecified joint, Discoid lupus erythematosus, High risk medication use, Encounter for therapeutic drug level monitoring * COMPLEMENT C4(Performed 12/21/2021) Performed for Fall, initial encounter, Arthralgia, unspecified joint, Discoid lupus erythematosus, High risk medication use, Encounter for therapeutic drug level monitoring * COMPLEMENT C3(Performed 12/21/2021) Performed for Fall, initial encounter, Arthralgia, unspecified joint, Discoid lupus erythematosus, High risk medication use, Encounter for therapeutic drug level monitoring * OPH OCT TEST SLU(Performed 10/27/2021) Performed for Long-term use of Plaquenil * OPH VISUAL FIELD TEST SLU(Performed 10/27/2021) Performed for Long-term use of Plaquenil * URINALYSIS W/MICROSCOPIC NO CULTURE(Performed 07/20/2021) Performed for Discoid lupus erythematosus, Arthralgia, unspecified joint, High risk medication use,Encounter for therapeutic drug level monitoring * COMPLEMENT C4(Performed 07/20/2021) Performed for Discoid lupus erythematosus, Arthralgia, unspecified joint, Encounter for therapeuticdrug level monitoring * COMPLEMENT C3(Performed 07/20/2021) Performed for Discoid lupus erythematosus, Arthralgia, unspecified joint, Encounter for therapeuticdrug level monitoring * CBC W AUTO DIFFERENTIAL(Performed 07/20/2021) Performed for Discoid lupus erythematosus, Arthralgia, unspecified joint, High risk medication use,Encounter for therapeutic drug level monitoring * ERYTHROCYTE SEDIMENTATION RATE(Performed 07/20/2021) Performed for Discoid lupus erythematosus, Arthralgia, unspecified joint, High risk medication use,Encounter for therapeutic drug level monitoring * C-REACTIVE PROTEIN(Performed 07/20/2021) Performed for Discoid lupus erythematosus, Arthralgia, unspecified joint, High risk medication use,Encounter for therapeutic drug level monitoring * COMPREHENSIVE METABOLIC PANEL(Performed 07/20/2021) Performed for Discoid lupus erythematosus, Arthralgia, unspecified joint, High risk medication use,Encounter for therapeutic drug level monitoring * URINALYSIS W/MICROSCOPIC NO CULTURE(Performed 03/09/2021) Performed for Discoid lupus erythematosus, Arthralgia, unspecified joint, High risk medication use,Long-term use of immunosuppressant medication * COMPLEMENT C4(Performed 03/09/2021) Performed for Discoid lupus erythematosus, Arthralgia, unspecified joint, High risk medication use,Long-term use of immunosuppressant medication * COMPLEMENT C3(Performed 03/09/2021) Performed for Discoid lupus erythematosus, Arthralgia, unspecified joint, High risk medication use,Long-term use of immunosuppressant medication * COMPREHENSIVE METABOLIC PANEL(Performed 03/09/2021) Performed for Discoid lupus erythematosus, Arthralgia, unspecified joint, High risk medication use,Long-term use of immunosuppressant medication * ERYTHROCYTE SEDIMENTATION RATE(Performed 03/09/2021) Performed for Discoid lupus erythematosus, Arthralgia, unspecified joint, High risk medication use,Long-term use of immunosuppressant medication * CBC W AUTO DIFFERENTIAL(Performed 03/09/2021) Performed for Discoid lupus erythematosus, Arthralgia, unspecified joint, High risk medication use,Long-term use of immunosuppressant medication * C-REACTIVE PROTEIN(Performed 03/09/2021) Performed for Discoid lupus erythematosus, Arthralgia, unspecified joint, High risk medication use,Long-term use of immunosuppressant medication * OPH VISUAL FIELD TEST SLU(Performed 06/24/2020) Performed for Long-term use of Plaquenil * OPH OCT TEST SLU(Performed 06/24/2020) Performed for Long-term use of Plaquenil * URINALYSIS W/MICROSCOPIC NO CULTURE(Performed 11/14/2019) Performed for Discoid lupus erythematosus, Encounter for therapeutic drug level monitoring, High risk medications (not anticoagulants) long-term use, Other specified abnormal immunological findings in serum, Arthralgia, unspecified joint * COMPLEMENT C4(Performed 11/14/2019) Performed for Discoid lupus erythematosus, Encounter for therapeutic drug level monitoring, High risk medications (not anticoagulants) long-term use, Other specified abnormal immunological findings in serum, Arthralgia, unspecified joint * COMPLEMENT C3(Performed 11/14/2019) Performed for Discoid lupus erythematosus, Encounter for therapeutic drug level monitoring, High risk medications (not anticoagulants) long-term use, Other specified abnormal immunological findings in serum, Arthralgia, unspecified joint * CBC W AUTO DIFFERENTIAL(Performed 11/14/2019) Performed for Discoid lupus erythematosus, Encounter for therapeutic drug level monitoring, High risk medications (not anticoagulants) long-term use, Other specified abnormal immunological findings in serum, Arthralgia, unspecified joint * ERYTHROCYTE SEDIMENTATION RATE(Performed 11/14/2019) Performed for Discoid lupus erythematosus, Encounter for therapeutic drug level monitoring, High risk medications (not anticoagulants) long-term use, Other specified abnormal immunological findings in serum, Arthralgia, unspecified joint * C-REACTIVE PROTEIN(Performed 11/14/2019) Performed for Discoid lupus erythematosus, Encounter for therapeutic drug level monitoring, High risk medications (not anticoagulants) long-term use, Other specified abnormal immunological findings in serum, Arthralgia, unspecified joint * COMPREHENSIVE METABOLIC PANEL(Performed 11/14/2019) Performed for Discoid lupus erythematosus, Encounter for therapeutic drug level monitoring, High risk medications (not anticoagulants) long-term use, Other specified abnormal immunological findings in serum, Arthralgia, unspecified joint * TSH(Performed 02/21/2019) Performed for Discoid lupus erythematosus, Encounter for therapeutic drug level monitoring, High risk medications (not anticoagulants) long-term use, Other specified abnormal immunological findings in serum, Arthralgia, unspecified joint, Myalgia, Fibromyalgia * URINALYSIS W/MICROSCOPIC NO CULTURE(Performed 02/21/2019) Performed for Discoid lupus erythematosus, Encounter for therapeutic drug level monitoring, High risk medications (not anticoagulants) long-term use, Other specified abnormal immunological findings in serum, Arthralgia, unspecified joint, Myalgia, Fibromyalgia * ERYTHROCYTE SEDIMENTATION RATE(Performed 02/21/2019) Performed for Discoid lupus erythematosus, Encounter for therapeutic drug level monitoring, High risk medications (not anticoagulants) long-term use, Other specified abnormal immunological findings in serum, Arthralgia, unspecified joint, Myalgia, Fibromyalgia * C-REACTIVE PROTEIN(Performed 02/21/2019) Performed for Discoid lupus erythematosus, Encounter for therapeutic drug level monitoring, High risk medications (not anticoagulants) long-term use, Other specified abnormal immunological findings in serum, Arthralgia, unspecified joint, Myalgia, Fibromyalgia * COMPREHENSIVE METABOLIC PANEL(Performed 02/21/2019) Performed for Discoid lupus erythematosus, Encounter for therapeutic drug level monitoring, High risk medications (not anticoagulants) long-term use, Other specified abnormal immunological findings in serum, Arthralgia, unspecified joint, Myalgia, Fibromyalgia * CBC W AUTO DIFFERENTIAL(Performed 02/21/2019) Performed for Discoid lupus erythematosus, Encounter for therapeutic drug level monitoring, High risk medications (not anticoagulants) long-term use, Other specified abnormal immunological findings in serum, Arthralgia, unspecified joint, Myalgia, Fibromyalgia * CULTURE AEROBIC(Performed 02/01/2019) Performed for Folliculitis * ERYTHROCYTE SEDIMENTATION RATE(Performed 09/13/2018) Performed for Discoid lupus erythematosus, Encounter for therapeutic drug level monitoring, Other specified abnormal immunological findings in serum, High risk medications (not anticoagulants) long-term use * C-REACTIVE PROTEIN(Performed 09/13/2018) Performed for Discoid lupus erythematosus, Encounter for therapeutic drug level monitoring, Other specified abnormal immunological findings in serum, High risk medications (not anticoagulants) long-term use * COMPREHENSIVE METABOLIC PANEL(Performed 09/13/2018) Performed for Discoid lupus erythematosus, Encounter for therapeutic drug level monitoring, Other specified abnormal immunological findings in serum, High risk medications (not anticoagulants) long-term use * CBC W AUTO DIFFERENTIAL(Performed 09/13/2018) Performed for Discoid lupus erythematosus, Encounter for therapeutic drug level monitoring, Other specified abnormal immunological findings in serum, High risk medications (not anticoagulants) long-term use * COMPLEMENT C4(Performed 09/13/2018) Performed for Discoid lupus erythematosus, Encounter for therapeutic drug level monitoring, Other specified abnormal immunological findings in serum, High risk medications (not anticoagulants) long-term use * COMPLEMENT C3(Performed 09/13/2018) Performed for Discoid lupus erythematosus, Encounter for therapeutic drug level monitoring, Other specified abnormal immunological findings in serum, High risk medications (not anticoagulants) long-term use * URINALYSIS W/MICROSCOPIC NO CULTURE(Performed 05/10/2018) Performed for Discoid lupus erythematosus, Encounter for therapeutic drug level monitoring, Other specified abnormal immunological findings in serum, High risk medications (not anticoagulants) long-term use * GLENYS STAINING PATTERNS REFLEXED(Performed 05/10/2018) Performed for Discoid lupus erythematosus, Encounter for therapeutic drug level monitoring, Other specified abnormal immunological findings in serum, High risk medications (not anticoagulants) long-term use * HISTONE ANTIBODY(Performed 05/10/2018) Performed for Discoid lupus erythematosus, Encounter for therapeutic drug level monitoring, Other specified abnormal immunological findings in serum, High risk medications (not anticoagulants) long-term use * GERIATRICS PHYSICIAN ANTIBODY(Performed 05/10/2018) Performed for Discoid lupus erythematosus, Encounter for therapeutic drug level monitoring, Other specified abnormal immunological findings in serum, High risk medications (not anticoagulants) long-term use * SS-B (SJOGREN'S) ANTIBODY(Performed 05/10/2018) Performed for Discoid lupus erythematosus, Encounter for therapeutic drug level monitoring, Other specified abnormal immunological findings in serum, High risk medications (not anticoagulants) long-term use * SS-A (SJOGREN'S) ANTIBODY(Performed 05/10/2018) Performed for Discoid lupus erythematosus, Encounter for therapeutic drug level monitoring, Other specified abnormal immunological findings in serum, High risk medications (not anticoagulants) long-term use * ZARCO (SM) ANTIBODY AMBROSE(Performed 05/10/2018) Performed for Discoid lupus erythematosus, Encounter for therapeutic drug level monitoring, Other specified abnormal immunological findings in serum, High risk medications (not anticoagulants) long-term use * DNA ANTIBODY DS CRITHIDIA TITER(Performed 05/10/2018) Performed for Discoid lupus erythematosus, Encounter for therapeutic drug level monitoring, Other specified abnormal immunological findings in serum, High risk medications (not anticoagulants) long-term use * CHROMATIN ANTIBODY(Performed 05/10/2018) Performed for Discoid lupus erythematosus, Encounter for therapeutic drug level monitoring, Other specified abnormal immunological findings in serum, High risk medications (not anticoagulants) long-term use * TASHA BLOOD SCREEN W/REFLEX TITER(Performed 05/10/2018) Performed for Discoid lupus erythematosus, Encounter for therapeutic drug level monitoring, Other specified abnormal immunological findings in serum, High risk medications (not anticoagulants) long-term use * COMPREHENSIVE METABOLIC PANEL(Performed 05/10/2018) Performed for Discoid lupus erythematosus, Encounter for therapeutic drug level monitoring, Other specified abnormal immunological findings in serum, High risk medications (not anticoagulants) long-term use * ERYTHROCYTE SEDIMENTATION RATE(Performed 05/10/2018) Performed for Discoid lupus erythematosus, Encounter for therapeutic drug level monitoring, Other specified abnormal immunological findings in serum, High risk medications (not anticoagulants) long-term use * C-REACTIVE PROTEIN(Performed 05/10/2018) Performed for Discoid lupus erythematosus, Encounter for therapeutic drug level monitoring, Other specified abnormal immunological findings in serum, High risk medications (not anticoagulants) long-term use * CBC W AUTO DIFFERENTIAL(Performed 05/10/2018) Performed for Discoid lupus erythematosus, Encounter for therapeutic drug level monitoring, Other specified abnormal immunological findings in serum, High risk medications (not anticoagulants) long-term use * LAB RESULTS ORDER(Performed 03/09/2018) * LAB RESULTS ORDER(Performed 03/07/2018) * XR CERVICAL SPINE 6VW OR MORE(Performed 08/10/2017) * ALDOLASE(Performed 08/10/2017) * ERYTHROCYTE SEDIMENTATION RATE(Performed 08/10/2017) * COMPREHENSIVE METABOLIC PANEL(Performed 08/10/2017) * LDH BLOOD(Performed 08/10/2017) * CK BLOOD(Performed 08/10/2017) * C-REACTIVE PROTEIN(Performed 08/10/2017) * URINALYSIS REFLEX TO MICROSCOPIC NO CULTURE(Performed 08/10/2017) * CBC W AUTO DIFFERENTIAL(Performed 08/10/2017) * CBC W AUTO DIFFERENTIAL(Performed 08/10/2017) * COMPREHENSIVE METABOLIC PANEL(Performed 02/02/2017) * ERYTHROCYTE SEDIMENTATION RATE(Performed 02/02/2017) * C-REACTIVE PROTEIN(Performed 02/02/2017) * URINALYSIS W/MICROSCOPIC NO CULTURE(Performed 02/02/2017) * CBC W AUTO DIFFERENTIAL(Performed 02/02/2017) * CBC W AUTO DIFFERENTIAL(Performed 02/02/2017) * GLENYS STAINING PATTERNS REFLEXED(Performed 09/15/2016) * SCLERODERMA 70 (SCL) ANTIBODY(Performed 09/15/2016) * GERIATRICS PHYSICIAN ANTIBODY(Performed 09/15/2016) * SS-A (SJOGREN'S) ANTIBODY(Performed 09/15/2016) * SS-B (SJOGREN'S) ANTIBODY(Performed 09/15/2016) * ZARCO (SM) ANTIBODY AMBROSE(Performed 09/15/2016) * DNA ANTIBODY DOUBLE STRANDED(Performed 09/15/2016) * TASHA BLOOD SCREEN W/REFLEX TITER(Performed 09/15/2016) * ERYTHROCYTE SEDIMENTATION RATE(Performed 09/15/2016) * C-REACTIVE PROTEIN(Performed 09/15/2016) * CBC W AUTO DIFFERENTIAL(Performed 03/08/2016) * G6PD QUANTITATIVE(Performed 03/08/2016) * COMPREHENSIVE METABOLIC PANEL(Performed 03/08/2016) * CULTURE AEROBIC(Performed 02/20/2016) * METHICILLIN RAPID TEST(Performed 02/20/2016) * DERMATOPATHOLOGY(Performed 02/20/2016) * PATHOLOGY/GENETICS HISTORICAL-ONBASE(Performed 02/20/2016) * XR KNEE LEFT 4VW OR MORE(Performed 12/17/2015) * XR PELVIS W BILAT HIP 2VW(Performed 12/17/2015) * XR SHOULDER LEFT 2VW OR MORE(Performed 12/17/2015) * XR HAND LEFT 3VW OR MORE(Performed 12/17/2015) * XR CERVICAL SPINE 4 OR 5VW(Performed 12/17/2015) * XR SHOULDER RIGHT 2VW OR MORE(Performed 12/17/2015) * XR KNEE RIGHT 4VW OR MORE(Performed 12/17/2015) * XR WRIST LEFT 3VW OR MORE(Performed 12/17/2015) * XR WRIST RIGHT 3VW OR MORE(Performed 12/17/2015) * XR LUMBAR SPINE 4VW OR MORE(Performed 12/17/2015) * XR HAND RIGHT 3VW OR MORE(Performed 12/17/2015) * SCLERODERMA 70 (SCL) ANTIBODY(Performed 12/17/2015) * DNA ANTIBODY DOUBLE STRANDED(Performed 12/17/2015) * TASHA W/REFLEX IFA PATTERN(Performed 12/17/2015) * GERIATRICS PHYSICIAN ANTIBODY(Performed 12/17/2015) * SS-A (SJOGREN'S) ANTIBODY(Performed 12/17/2015) * SS-B (SJOGREN'S) ANTIBODY(Performed 12/17/2015) * ZARCO (SM) ANTIBODY AMBROSE(Performed 12/17/2015) * COMPLEMENT TOTAL(Performed 12/17/2015) * ALDOLASE(Performed 12/17/2015) * THYROGLOBULIN ANTIBODY(Performed 12/17/2015) * THYROID PEROXIDASE ANTIBODY(Performed 12/17/2015) * T4 FREE(Performed 12/17/2015) * VITAMIN D 25-HYDROXY(Performed 12/17/2015) * ERYTHROCYTE SEDIMENTATION RATE(Performed 12/17/2015) * CYCLIC CITRULLINATED PEPTIDE(CCP) AB IGG(Performed 12/17/2015) * TSH(Performed 12/17/2015) * RHEUMATOID FACTOR BLOOD QUANTITATIVE(Performed 12/17/2015) * C-REACTIVE PROTEIN(Performed 12/17/2015) * COMPLEMENT C4(Performed 12/17/2015) * COMPLEMENT C3(Performed 12/17/2015) * LDH BLOOD(Performed 12/17/2015) * CK BLOOD(Performed 12/17/2015) * URIC ACID BLOOD(Performed 12/17/2015) * URINALYSIS W/MICROSCOPIC NO CULTURE(Performed 12/17/2015) * GLENYS STAINING PATTERNS REFLEXED(Performed 12/17/2015) * TASHA BLOOD SCREEN W/REFLEX TITER(Performed 12/17/2015) Results * (ABNORMAL) URINALYSIS W/MICROSCOPIC REFLEX TO CULTURE (11/15/2024 10:58 AM GRAPHIC ART TECHNICIAN) Color UA Yellow Straw, Yellow 11/15/2024 11:11 AM [facility] Clarity UA Clear Clear 11/15/2024 11:11 AM [facility] Specific [place] UA 1.011 1.005 - 1.030 11/15/2024 11:11 AM [facility] pH UA 5.0 5.0 - 8.0 pH 11/15/2024 11:11 AM [facility] Protein UA Negative Negative 11/15/2024 11:11 AM [facility] [facility] Glucose UA Negative Negative 11/15/2024 11:11 AM [facility] Ketone UA Negative Negative 11/15/2024 11:11 AM [facility] Bilirubin UA Negative Negative 11/15/2024 11:11 AM [facility] Blood UA Negative Negative 11/15/2024 11:11 AM [facility] Nitrite UA Negative Negative 11/15/2024 11:11 AM [facility] Leukocyte Esterase Negative Negative 11/15/2024 11:11 AM [facility] Urobilinogen UA Negative Negative mg/dL 11/15/2024 11:11 AM [facility] RBC UA 0-2 None Seen, 0-2, 3-5 /HPF 11/15/2024 11:11 AM [facility] WBC UA 0-5 None Seen, 0-5 /HPF 11/15/2024 11:11 AM [facility] Bacteria UA 1+(A) None /HPF 11/15/2024 11:11 AM [facility] Squamous Epithelial Cells UA 0-2 None Seen, 0-2, 3-5 /HPF 11/15/2024 11:11 AM [facility] Mucus UA 3+ /LPF 11/15/2024 11:11 AM [facility] Urine URINE SPECIMEN OBTAINED BY CLEAN CATCH PROCEDURE / Unknown Collection / Unknown 11/15/2024 10:58 AM GRAPHIC ART TECHNICIAN 11/15/2024 11:04 AM GRAPHIC ART TECHNICIAN Narrative [facility] - 11/15/2024 11:11 AM GRAPHIC ART TECHNICIAN Culture Not Indicated Lacy Stevens MD LAB - URINALYSIS ORD ERABLES Performing Organization Address City/[facility] Co de Phone Number [address] [address], [employer] [phone] * PROTEIN CREATININE RATIO URINE RANDOM PNL (11/15/2024 10:58 AM GRAPHIC ART TECHNICIAN) Only the most recent of2 resultswithin the time period is included. Protein Urine <7 Not Established mg/dL 11/15/2024 11:44 AM [facility] Creatinine Urine 132.78 Not Established mg/dL 11/15/2024 11:44 AM [facility] Protein/Creatinin e Ratio Urine 11/15/2024 11:44 AM [facility] Comment:Unable to calculate ratio because the analyte concentration is outside the instrument measuring range. Urine URINE SPECIMEN OBTAINED BY CLEAN CATCH PROCEDURE / Unknown Collection / Unknown 11/15/2024 10:58 AM GRAPHIC ART TECHNICIAN 11/15/2024 11:07 AM GRAPHIC ART TECHNICIAN Lacy Stevens MD LAB - URINE CHEMISTR Y ORDERABLES Performing Organization Address City/[facility]/ZIP Co de Phone Number [address] [address], [employer] [phone] * (ABNORMAL) CBC WITH DIFFERENTIAL (11/15/2024 10:43 AM [facility]) Only the most recent of14 resultswithin the time period is included. WBC 6.1 4.0 - 10.7 x10E9/L 11/15/2024 11:13 AM [facility] RBC Count 4.05 3.90 - 5.20 x10E12/L 11/15/2024 11:13 AM [facility] Hemoglobin 11.9 11.9 - 15.8 g/dL 11/15/2024 11:13 AM [facility] Hematocrit 34.9 34.8 - 46.1 % 11/15/2024 11:13 AM [facility] MCV 86.2 80.0 - 98.0 fL 11/15/2024 11:13 AM [facility] MCH 29.4 26.7 - 33.6 pg 11/15/2024 11:13 AM [facility] MCHC 34.1 31.7 - 36.3 g/dL 11/15/2024 11:13 AM [facility] RDW-CV 13.8 11.3 - 14.8 % 11/15/2024 11:13 AM [facility] Platelet Count 234 150 - 420 x10E9/L 11/15/2024 11:13 AM [facility] MPV 12.1(H) 7.8 - 11.4 fL 11/15/2024 11:13 AM [facility] Neutrophil % 55.6 41.0 - 74.0 % 11/15/2024 11:13 AM [facility] Lymphocyte % 33.5 17.0 - 47.0 % 11/15/2024 11:13 AM [facility] Monocyte % 7.7 3.0 - 11.0 % 11/15/2024 11:13 AM [facility] Eosinophil % 2.3 0.0 - 7.0 % 11/15/2024 11:13 AM [facility] Basophil % 0.7 0.0 - 1.6 % 11/15/2024 11:13 AM [facility] Immature Granulocytes % 0.2 0.0 - 1.0 % 11/15/2024 11:13 AM [facility] Neutrophil Absolute 3.39 1.60 - 7.50 x10E9/L 11/15/2024 11:13 AM [facility] Lymphocyte Absolute 2.04 1.00 - 4.40 x10E9/L 11/15/2024 11:13 AM [facility] Monocyte Absolute 0.47 0.15 - 1.00 x10E9/L 11/15/2024 11:13 AM [facility] Eosinophil Absolute 0.14 0.00 - 0.60 x10E9/L 11/15/2024 11:13 AM [facility] Basophil Absolute 0.04 0.00 - 0.13 x10E9/L 11/15/2024 11:13 AM [facility] Blood BLOOD SPECIMEN / Unknown Lab Venipuncture / Unknown 11/15/2024 10:43 AM [facility] 11/15/2024 11:08 AM [facility] Lacy Stevens MD LAB - HEMATOLOGY ORD ERABLES [facility] [address] [place] [address], [facility] [phone] * (ABNORMAL) COMPREHENSIVE METABOLIC PANEL (11/15/2024 10:43 AM [facility]) Only the most recent of12 resultswithin the time period is included. BUN 8 7 - 26 mg/dL 11/15/2024 11:43 AM [facility] Creatinine 0.94 0.56 - 0.96 mg/dL 11/15/2024 11:43 AM [facility] Sodium 143 136 - 145 mmol/L 11/15/2024 11:43 AM [facility] Potassium 3.4(L) 3.5 - 4.5 mmol/L 11/15/2024 11:43 AM [facility] Chloride 108(H) 98 - 107 mmol/L 11/15/2024 11:43 AM [facility] CO2 25 22 - 29 mmol/L 11/15/2024 11:43 AM [facility] Glucose 97 70 - 99 mg/dL 11/15/2024 11:43 AM [facility] Calcium 9.3 8.4 - 10.2 mg/dL 11/15/2024 11:43 AM [facility] Protein Total 7.5 6.0 - 8.3 g/dL 11/15/2024 11:43 AM [facility] Albumin 3.7 3.4 - 5.0 g/dL 11/15/2024 11:43 AM [facility] Bilirubin Total 0.7 0.2 - 1.2 mg/dL 11/15/2024 11:43 AM [facility] Alkaline Phosphatase 81 40 - 150 U/L 11/15/2024 11:43 AM [facility] ALT 12 5 - 55 U/L 11/15/2024 11:43 AM [facility] AST 16 5 - 34 U/L 11/15/2024 11:43 AM [facility] Anion Gap 10 6 - 16 11/15/2024 11:43 AM [facility] BUN/Creatinine Ratio 9 7 - 23 11/15/2024 11:43 AM [facility] Osmolality Calculated 294 275 - 295 mOsm/kg 11/15/2024 11:43 AM [facility] Albumin/Globulin Ratio 1.0(L) 1.1 - 2.3 11/15/2024 11:43 AM [facility] eGFR by CKD-EPI 67(L) >=90 mL/min/1.7 3 m2 11/15/2024 11:43 AM [facility] Blood BLOOD SPECIMEN / Unknown Lab Venipuncture / Unknown 11/15/2024 10:43 AM GRAPHIC ART TECHNICIAN 11/15/2024 11:08 AM [facility] Lacy Stevens MD LAB - CHEMISTRY MADDY PAUL [facility] Organization Address City/State/ZIP Co de Phone Number [address] [address], [facility] [phone] * ZARCO/GERIATRICS PHYSICIAN (AMBROSE) ANTIBODY IGG (02/03/2023 9:37 AM CDT) Zarco/GERIATRICS PHYSICIAN (AMBROSE) Antibody IgG 9 0 - 19 Units 02/04/2023 11:18 PM CDT [facility] ([facility]) Comment: INTERPRETIVE INFORMATION: Zarco/GERIATRICS PHYSICIAN (AMBROSE) Antibody, IgG 19 Units or Less ............. Negative 20 to 39 Units ............... Weak Positive 40 to 80 Units ............... Moderate Positive 81 Units or greater .......... Strong Positive Zarco/GERIATRICS PHYSICIAN antibodies are frequently seen in patients with mixed connective tissue disease (MCTD) and are also associated with other systemic autoimmune rheumatic diseases (SARDs) such as systemic lupus erythematosus (SLE), systemic sclerosis, and myositis. Antibodies targeting the Zarco/GERIATRICS PHYSICIAN antigenic complex also recognize Zarco antigens, therefore, the Zarco antibody response must be considered when interpreting these results. Performed By: [employer] [address] [place] [address] [employer]mallow Machine Operator: Moy Juarez MD, PhD Blood BLOOD SPECIMEN / Unknown Lab Venipuncture / Unknown 02/03/2023 9:37 AM CDT 02/03/2023 9:56 AM CDT Lacy Stevens MD LAB - CHEMISTRY MADDY PAUL [facility] Organization Address City/State/ZIP Co de Phone Number [employer] [facility]) [address] [place] [address], [facility] * SS-B (SJOGREN'S) ANTIBODY (02/03/2023 9:37 AM CDT) Only the most recent of5 resultswithin the time period is included. SS-B Antibody 0 0 - 40 AU/mL 02/04/2023 7:26 PM CDT [employer] ([facility]) Comment: INTERPRETIVE INFORMATION: SSB (La) (AMBROSE) Ab, IgG 29 AU/mL or Less ............. Negative 30 - 40 AU/mL ................ Equivocal 41 AU/mL or Greater .......... Positive SSB (La) antibody is seen in 50-60% of Sjogren syndrome cases and is specific if it is the only AMBROSE antibody present. 15-25% of patients with systemic lupus erythematosus (SLE) and 5-10% of patients with progressive systemic sclerosis (PSS) also have this antibody. Performed By: [employer] [address] [place] [address] [employer] Machine Operator: Moy Juarze MD, PhD Blood BLOOD SPECIMEN / Unknown Lab Venipuncture / Unknown 02/03/2023 9:37 AM CDT 02/03/2023 9:56 AM CDT Lacy Stevens MD LAB - CHEMISTRY ORDIsidoro PAUL Performing Organization Address [facility] de Phone Number [facility] ([facility]) [address] [place] [address] * (ABNORMAL) TASHA BLOOD SINGLE PATTERN (02/03/2023 9:35 AM CDT) TASHA Pattern Speckled( A) 02/06/2023 12:48 PM CDT [facility] [employer] ([facility]) TASHA Titer 1:640(A) 02/06/2023 12:48 PM CDT [facility] ([facility]) Comment: Performed By: [employer] [address] [place] [address] [employer] Operator: Moy Juarez MD, PhD Blood BLOOD SPECIMEN / Unknown Lab Venipuncture / Unknown 02/03/2023 9:35 AM CDT 02/03/2023 9:56 AM CDT Lacy Stevens MD LAB - CHEMISTRY MADDY PAUL Performing Organization Address [facility] Co de Phone Number [facility] ([facility]) [address] * (ABNORMAL) TASHA HEP-2 IGG BY IFA (02/03/2023 9:35 AM CDT) TASHA HEp-2 IgG Detected (H) <1:80 02/06/2023 12:48 PM CDT [facility] ([facility]) TASHA Interpretive Comment See Note 02/06/2023 12:48 PM CDT [facility] ([facility]) Comment: Speckled Pattern Clinical associations: SLE, SSc, SjS, DM, PM, MCTD, UCTD. May also be found in healthy individuals Main autoantibodies: Anti-SSA-52 (Ro52), anti-SSA-60 (Ro60), anti-SS-B/LA, anti-Harrison-1 (anti-Scl-70), Zarco, anti-U1-GERIATRICS PHYSICIAN, anti-U2-GERIATRICS PHYSICIAN, anti-Mi-2, anti-p155/140 (TIF1g), anti-Ku, anti-RNA polymerase, anti-DFS70/LEDGF-P75 List of Abbreviations Antisynthetase syndrome (ARS), chronic active hepatitis (CAH), inflammatory myopathies (IM) [dermatomyositis (DM), polymyositis (PM), necrotizing autoimmune myopathy (NAM)], interstitial lung disease (ILD), juvenile idiopathic arthritis (MOY), mixed connective tissue disease (MCTD), primary biliary cholangitis (PBC), rheumatoid arthritis (RA), systemic autoimmune rheumatic diseases (SARD), Sjogren syndrome (SjS), systemic lupus erythematosus (SLE), systemic sclerosis (SSc), undifferentiated connective tissue disease (UCTD). INTERPRETIVE INFORMATION: TASHA Interpretive Comment Presence of antinuclear antibodies (TASHA) is a hallmark feature of systemic autoimmune rheumatic diseases (SARD). However, TASHA lacks diagnostic specificity and is associated with a variety of diseases (cancers, autoimmune, infectious, and inflammatory conditions) and may also occur in healthy individuals in varying prevalence. The lack of diagnostic specificity requires confirmation of positive TASHA by more specific serologic tests. TASHA (nuclear reactivity) positive patterns reported include centromere, homogeneous, nuclear dots, nucleolar, or speckled. TASHA (cytoplasmic reactivity) positive patterns reported include reticular/AMA, discrete/GW body-like, polar/golgi-like, cytoplasmic speckled or rods and rings. All positive patterns are reported to endpoint titers (1:2560). Reported patterns may help guide differential diagnosis, although they may not be specific for individual antibodies or diseases. Mitotic staining patterns not reported. Negative results do not necessarily rule out SARD. Performed By: [employer] [address] [place] [id number] [employer] Machine Operator: Moy Juarez MD, PhD Blood BLOOD SPECIMEN / Unknown Lab Venipuncture / Unknown 02/03/2023 9:35 AM CDT 02/03/2023 9:56 AM CDT Lacy Stevens MD LAB - SEROLOGY ORDER ASHLEY [facility] [employer] [facility]) [address] * DNA ANTIBODY DS CRITHIDIA TITER (02/03/2023 9:35 AM CDT) Only the most recent of2 resultswithin the time period is included. dsDNA Antibody IgG <1:10 <1:10 2022 4:14 PM CDT [facility] [employer] ([facility]) Comment: INTERPRETIVE INFORMATION: Double-Stranded DNA (dsDNA) Antibody, IgG by IFA (using Crithidia luciliae) Positivity for anti-double stranded DNA (anti-dsDNA) IgG antibody is a diagnostic criterion of systemic lupus erythematosus (SLE). The presence of the anti-dsDNA IgG antibody is identified by IFA titer (Crithidia luciliae indirect fluorescent test [SUSANA]). SUSANA is highly specific for SLE with a sensitivity of 50-60 percent. Some patients with early or inactive SLE may be positive for anti-dsDNA IgG by TONYA but negative by SUSANA. If the SUSANA result is negative but the patient has a positive TONYA and clinical suspicion remains, consider antinuclear antibody (TASHA) testing by IFA. Additional information and recommendations for testing may be found at [email or web address]-[email or web address]. Performed By: [employer] [address] [place] [address] Marshmallow Machine Operator: Moy Juarez MD, PhD Blood BLOOD SPECIMEN / Unknown Lab Venipuncture / Unknown 02/03/2023 9:35 AM CDT 02/03/2023 9:56 AM CDT Lacy Stevens MD LAB - SEROLOGY ORDER ASHLEY [employer] [facility]) [address] * ZARCO (SM) ANTIBODY AMBROSE (02/03/2023 9:35 AM CDT) Only the most recent of4 resultswithin the time period is included. [facility] Zarco (AMBROSE) Antibody 0 0 - 40 AU/mL 02/04/2023 7:26 PM CDT [facility] ([facility]) Comment: INTERPRETIVE INFORMATION: Zarco (AMBROSE) Antibody, IgG 29 AU/mL or Less ............. Negative 30 - 40 AU/mL ................ Equivocal 41 AU/mL or Greater .......... Positive Zarco antibody is highly specific (greater than 90 percent) for systemic lupus erythematosus (SLE) but only occurs in 30-35 percent of SLE cases. The presence of antibodies to Zarco has variable associations with SLE clinical manifestations. Performed By: [id number] [address] [place] [address] Marshmallow Machine Operator: Moy Juarez MD, PhD Blood BLOOD SPECIMEN / Unknown Lab Venipuncture / Unknown 02/03/2023 9:35 AM CDT 02/03/2023 9:56 AM CDT Lacy Stevens MD LAB - CHEMISTRY MADDY PAUL [facility] Organization Address City/State/ZIP Co de Phone Number [facility]) [address] [place] [address], [facility] * (ABNORMAL) TASHA BLOOD SCREEN W/REFLEX TITER (02/03/2023 9:35 AM CDT) Only the most recent of4 resultswithin the time period is included. [facility] TASHA IgG Detected (A) None Detected 02/04/2023 10:30 PM CDT [facility] ([facility]) Comment: Antibodies to Anti-Nuclear Antibodies (TASHA) detected. Additional testing to follow. INTERPRETIVE INFORMATION: Anti-Nuclear Antibodies (TASHA), IgG by TONYA Antinuclear Antibodies (TASHA), IgG by TONYA: TASHA specimens are screened using enzyme-linked immunosorbent assay (TONYA) methodology. All TONYA results reported as Detected are further tested by indirect fluorescent assay (IFA) using HEp-2 substrate with an IgG-specific conjugate. The TASHA TONYA screen is designed to detect antibodies against dsDNA, histones, SS-A (Ro), SS-B (La), Zarco, Zarco/GERIATRICS PHYSICIAN, Scl-70, Gloria-1, centromeric proteins, other antigens extracted from the HEp-2 cell nucleus. TASHA TONYA assays have been reported to have lower sensitivities than TASHA IFA for systemic autoimmune rheumatic diseases (SARD). Negative results do not necessarily rule out SARD. Performed By: [employer] [address] [place] [address] Marshmallow Machine Operator: Moy Juarez MD, PhD Blood BLOOD SPECIMEN / Unknown Lab Venipuncture / Unknown 02/03/2023 9:35 AM CDT 02/03/2023 9:56 AM CDT Lacy Stevens MD LAB - CHEMISTRY MADDY PAUL Performing Organization Address [facility]/ZIP Co de Phone Number [facility] ([facility]) [address] [place] [address] * COMPLEMENT C4 (02/03/2023 9:35 AM CDT) Only the most recent of7 resultswithin the time period is included. Complement C4 42 15 - 57 mg/dL 02/03/2023 10:36 AM CDT [facility] Blood BLOOD SPECIMEN / Unknown Lab Venipuncture / Unknown 02/03/2023 9:35 AM CDT 02/03/2023 10:03 AM CDT Lacy Stevens MD LAB - SEROLOGY ORDER ASHLEY Performing Organization Address [facility]/ZIP Co de Phone Number [address] [address], [facility] [phone] * COMPLEMENT C3 (02/03/2023 9:35 AM CDT) Only the most recent of7 resultswithin the time period is included. Complement C3 139 82 - 193 mg/dL 02/03/2023 10:36 AM CDT [facility] Blood BLOOD SPECIMEN / Unknown Lab Venipuncture / Unknown 02/03/2023 9:35 AM CDT 02/03/2023 10:03 AM CDT Lacy Stevens MD LAB - CHEMISTRY ORDIsidoro PAUL [place] [address] [place] [address], [facility] [phone] * Visual Burt (01/06/2023 9:49 AM CDT) Anatomical Region Laterality Modality Other 01/06/2023 9:49 AM CDT Roman Jasso MD OPHTHALMOLOGY SERVIC ES ORDERABLES * OCT (01/06/2023 9:30 AM CDT) Anatomical Region Laterality Modality Other 01/06/2023 9:30 AM CDT Roman Jasso MD OPHTHALMOLOGY SERVIC ES ORDERABLES * OCT (10/27/2022 12:49 PM GRAPHIC ART TECHNICIAN) Anatomical Region Laterality Modality Other 10/27/2022 12:4 9 PM GRAPHIC ART TECHNICIAN Roman Jasso MD OPHTHALMOLOGY SERVIC ES ORDERABLES * Visual Burt (10/27/2022 11:54 AM GRAPHIC ART TECHNICIAN) Anatomical Region Laterality Modality Other 10/27/2022 11:5 4 AM GRAPHIC ART TECHNICIAN Roman Jasso MD OPHTHALMOLOGY SERVIC ES ORDERABLES * XR KNEE RIGHT 3VW (12/21/2021 1:09 PM GRAPHIC ART TECHNICIAN) Anatomical Region Laterality Modality Lower Extremity Radiographic Antonieta ging 12/21/2021 1:28 PM GRAPHIC ART TECHNICIAN Impressions 12/21/2021 1:29 PM GRAPHIC ART TECHNICIAN IMPRESSION: No acute osseous abnormality. This report was electronically signed by GABRIEL PIRES MD on 12/21/2021 1:29 PM . Narrative 12/21/2021 1:29 PM GRAPHIC ART TECHNICIAN Exam: XR KNEE RIGHT 3VW History: W19.XXXA: Fall, initial encounter M25.50: Arthralgia, unspecified joint L93.0: Discoid lupus erythematosus Z79.899: High risk medication use Z51.81: Encounter for therapeutic drug level monitoring Comparison: 12/17/2015 Findings: No fracture or dislocation. There is osteoarthritis, greatest in the patellofemoral compartment where there is moderate to severe joint space narrowing laterally with essentially cciw-fe-pubh contact. Mild medial compartment narrowing. Tricompartmental osteophytes. Small effusion noted. Procedure Note Gabriel Pires MD - 12/21/2021 Exam: XR KNEE RIGHT 3VW History: W19.XXXA: Fall, initial encounter M25.50: Arthralgia, unspecified joint L93.0: Discoid lupus erythematosus Z79.899: High risk medication use Z51.81: Encounter for therapeutic drug level monitoring Comparison: 12/17/2015 Findings: No fracture or dislocation. There is osteoarthritis, greatest in the patellofemoral compartment where there is moderate to severe joint space narrowing laterally with essentially ptgp-xr-fxyg contact. Mild medial compartment narrowing. Tricompartmental osteophytes. Small effusionnoted. IMPRESSION: No acute osseous abnormality. This report was electronically signed by GABRIEL PIRES MD on12/21/2021 1:29 PM . Elsa Hill MD DIAGNOSTIC IMAG ING ORDERABLES * XR HIP RIGHT 2VW OR MORE (12/21/2021 1:09 PM GRAPHIC ART TECHNICIAN) Anatomical Region Laterality Modality Pelvis, Lower Extremity [facility] 12/21/2021 1:35 PM GRAPHIC ART TECHNICIAN Impressions 12/21/2021 1:47 PM GRAPHIC ART TECHNICIAN IMPRESSION: No acute fracture or dislocation identified. Report drafted by Lalo Silva DO, MPH (resident) IDr. GABRIEL MD have personally reviewed and interpreted this examination/study. This report was electronically signed by GABRIEL PIRES MD on 12/21/2021 1:47 PM . Narrative 12/21/2021 1:47 PM GRAPHIC ART TECHNICIAN EXAMINATION: XR HIP RIGHT 2VW OR MORE HISTORY: W19.XXXA: Fall, initial encounter M25.50: Arthralgia, unspecified joint L93.0: Discoid lupus erythematosus Z79.899: High risk medication use Z51.81: Encounter for therapeutic drug level monitoring COMPARISON: Bilateral hip x-ray 12/17/2015. FINDINGS: The osseous structures are intact and well aligned without acute fracture or dislocation. The hip joint space is preserved. Procedure Note Gabriel Pires MD - 12/21/2021 EXAMINATION: XR HIP RIGHT 2VW OR MORE HISTORY: W19.XXXA: Fall, initial encounter M25.50: Arthralgia, unspecified joint L93.0: Discoid lupus erythematosus Z79.899: High risk medication use Z51.81: Encounter for therapeutic drug level monitoring COMPARISON: Bilateral hip x-ray 12/17/2015. FINDINGS: The osseous structures are intact and well aligned without acutefracture or dislocation. The hip joint space is preserved. IMPRESSION: No acute fracture or dislocation identified. Report drafted by Lalo Silva DO, MPH (resident) IDr. GABRIEL MD have personally reviewed and interpreted this examination/study. This report was electronically signed by GABRIEL PIRES MD on12/21/2021 1:47 PM . Elsa Hill MD DIAGNOSTIC IMAG ING ORDERABLES * XR LUMBAR SPINE 2 OR 3VW (12/21/2021 1:09 PM GRAPHIC ART TECHNICIAN) Anatomical Region Laterality Modality Spine Radiographic Antonieta ging 12/21/2021 2:01 PM GRAPHIC ART TECHNICIAN Impressions 12/21/2021 2:31 PM GRAPHIC ART TECHNICIAN IMPRESSION: No acute fracture or subluxation identified. Dictated by Ty Montano DO (radiology asst). Dr. LIZY Ortega have personally reviewed and interpreted this examination/study. This report was electronically signed by LIZY PANIAGUA on 12/21/2021 2:31 PM . Narrative 12/21/2021 2:31 PM GRAPHIC ART TECHNICIAN EXAMINATION: XR LUMBAR SPINE 2 OR 3VW HISTORY: W19.XXXA: Fall, initial encounter M25.50: Arthralgia, unspecified joint L93.0: Discoid lupus erythematosus Z79.899: High risk medication use Z51.81: Encounter for therapeutic drug level monitoring COMPARISON: No prior study is available for comparison at the time of this dictation. FINDINGS: Trace levocurvature of the lumbar spine. Grade 1 anterolisthesis of L4 on L5 and L5 on S1. Trace retrolisthesis of L2 on L3. There is no fracture or compression deformity. There is moderate disc space narrowing at L5/S1. Mild multilevel facet arthropathy. The sacroiliac joints are normal. Procedure Note Lizy Paniagua MD - 12/21/2021 EXAMINATION: XR LUMBAR SPINE 2 OR 3VW HISTORY: W19.XXXA: Fall, initial encounter M25.50: Arthralgia, unspecified joint L93.0: Discoid lupus erythematosus Z79.899: High risk medication use Z51.81: Encounter for therapeutic drug level monitoring COMPARISON: No prior study is available for comparison at the time ofthis dictation. FINDINGS: Trace levocurvature of the lumbar spine. Grade 1 anterolisthesis of L4on L5 and L5 on S1. Trace retrolisthesis of L2 on L3. There is no fractureor compression deformity. There is moderate disc space narrowing at L5/S1. Mild multilevel facet arthropathy. The sacroiliac joints are normal. IMPRESSION: No acute fracture or subluxation identified. Dictated by Ty Montano DO (radiology asst). I, Dr. LIZY PANIAGUA have personally reviewed and interpreted this examination/study. This report was electronically signed by LIZY PANIAGUA on 22:31 PM . Elsa Hill MD DIAGNOSTIC IMAG ING ORDERABLES * (ABNORMAL) URINALYSIS W/MICROSCOPIC NO CULTURE (12/21/2021 12:43 PM GRAPHIC ART TECHNICIAN) Only the most recent of8 resultswithin the time period is included. Color UA Yellow Straw, Yellow 12/21/2021 1:56 PM GRAPHIC ART TECHNICIAN [facility] Clarity UA Clear Clear 12/21/2021 1:56 [address] GRAPHIC ART TECHNICIAN [facility] Specific [place] UA 1.012 1.005 - 1.030 12/21/2021 1:56 PM GRAPHIC ART TECHNICIAN [facility] pH UA 6.0 5.0 - 8.0 pH 12/21/2021 1:56 PM GRAPHIC ART TECHNICIAN [facility] Protein UA Negative Negative 12/21/2021 1:56 [address] ART TECHNICIAN [facility] Glucose UA Negative Negative 12/21/2021 1:56 [address] GR[address] ART TECHNICIAN [facility] Ketone UA Negative Negative 12/21/2021 1:[address] [facility] Bilirubin UA Negative Negative 12/21/2021 1:56 PM [facility] Blood UA Negative Negative 12/21/2021 1:56 PM [facility] Nitrite UA Negative Negative 12/21/2021 1:56 PM [facility] Leukocyte Esterase Negative Negative 12/21/2021 1:56 PM [facility] Urobilinogen UA Negative Negative mg/dL 12/21/2021 1:56 PM [facility] RBC UA 0-2 None Seen, 0-2, 3-5 /HPF 12/21/2021 1:56 PM [facility] WBC UA 0-5 None Seen, 0-5 /HPF 12/21/2021 1:56 PM [facility] Bacteria UA 1+(A) None /HPF 12/21/2021 1:56 PM [facility] Squamous Epithelial Cells UA 3-5 None Seen, 0-2, 3-5 /HPF 12/21/2021 1:56 PM [facility] Mucus UA 1+ /LPF 12/21/2021 1:56 PM [facility] Urine URINE SPECIMEN OBTAINED BY CLEAN CATCH PROCEDURE / Unknown Collection / Unknown 12/21/2021 12:43 PM GRAPHIC ART TECHNICIAN 12/21/2021 1:28 PM GRAPHIC ART TECHNICIAN [facility] - 12/21/2021 1:56 PM GRAPHIC ART TECHNICIAN Manual microscopic done. Elsa Hill MD LAB - URINALYSI S ORDERABLES Performing Organization Address [facility]/State/[facility] Co de Phone Number [address] [id number] [phone] * (ABNORMAL) C-REACTIVE PROTEIN (12/21/2021 12:43 PM GRAPHIC ART TECHNICIAN) Only the most recent of11 resultswithin the time period is included. C-Reactive Protein 1.6(H) <=0.5 mg/dL 12/21/2021 1:59 PM [facility] Blood BLOOD SPECIMEN / Unknown Lab Venipuncture / Unknown 12/21/2021 12:43 PM GRAPHIC ART TECHNICIAN 12/21/2021 1:28 PM GRAPHIC ART TECHNICIAN Elsa Hill MD LAB - CHEMISTRY ORDERABLES [address] [address], [facility] [phone] * ERYTHROCYTE SEDIMENTATION RATE (12/21/2021 12:43 PM GRAPHIC ART TECHNICIAN) Only the most recent of11 resultswithin the time period is included. Erythrocyte Sedimentation Rate [place] 27 0 - 30 MM/HR 12/21/2021 2:35 PM GRAPHIC ART TECHNICIAN [facility] Blood BLOOD SPECIMEN / Unknown Lab Venipuncture / Unknown 12/21/2021 12:43 PM GRAPHIC ART TECHNICIAN 12/21/2021 1:31 PM GRAPHIC ART TECHNICIAN Elsa Hill MD LAB - HEMATOLOG Y ORDERABLES Performing Organization Address City/[facility]/ZIP Co de Phone Number [address] [address], [facility] [phone] * OPH OCT TEST [facility] (10/27/2021 11:50 AM GRAPHIC ART TECHNICIAN) Anatomical Region Laterality Modality Other 10/27/2021 11:5 0 AM GRAPHIC ART TECHNICIAN Roman Jasso MD OPHTHALMOLOGY SERVIC ES ORDERABLES * Visual Burt (10/27/2021 11:15 AM GRAPHIC ART TECHNICIAN) Anatomical Region Laterality Modality Other 10/27/2021 11:1 5 AM GRAPHIC ART TECHNICIAN Roman Jasso MD OPHTHALMOLOGY SERVIC ES ORDERABLES * OPH VISUAL FIELD TEST [facility] (06/24/2020 11:34 AM CDT) Anatomical Region Laterality Modality Other 06/24/2020 11:3 4 AM CDT Soraida Shah MD OPHTHALMOLOGY SERVIC ES ORDERABLES * OPH OCT TEST [facility] (06/24/2020 11:28 AM CDT) Anatomical Region Laterality Modality Other 06/24/2020 11:2 8 AM CDT Soraida Shah MD OPHTHALMOLOGY SERVIC ES ORDERABLES * TSH (02/21/2019 2:16 PM CDT) Only the most recent of2 resultswithin the time period is included. Pathologist [facility] TSH 2.329 0.350 - 4.940 uIU/mL 02/21/2019 3:[address] [facility] Blood BLOOD SPECIMEN / Unknown Lab Venipuncture / Unknown 02/21/2019 2:16 PM CDT 02/21/2019 2:25 PM CDT Elsa Hill MD LAB - CHEMISTRY ORDERABLES [facility] [address] [place] [address] * CULTURE AEROBIC (02/01/2019 10:30 AM CDT) Only the most recent of2 resultswithin the time period is included. Pathologist [facility] Comment: CULTURE, AEROBIC BACTERIA MICRO NUMBER: [id number] TEST STATUS: FINAL SPECIMEN SOURCE: SKIN SPECIMEN QUALITY: ADEQUATE RESULT: No Growth Test Performed at: [id number] [id number] PAYAL GREENBERG MD Microbiology TISSUE SPECIMEN FROM SKIN / Unknown 02/01/2019 10:30 AM CDT 02/02/2019 1:48 AM CDT Perla Freeman MD LAB - MICROBIOLOGY ORDERABLES [address] [address] * CHROMATIN ANTIBODY (05/10/2018 11:58 AM CDT) Pathologist [facility] Antichromatin Antibodies 0.2 0.0 - 0.9 AI 05/11/2018 12:14 PM CDT [facility] ([facility]) Blood BLOOD SPECIMEN / Unknown Lab Venipuncture / Unknown 05/10/2018 11:58 AM CDT 05/10/2018 12:36 PM CDT Narrative [facility] ([facility]) - 05/11/2018 12:14 PM CDT Performed at: - [facility] [address] [facility], [place], [place] [id number] Seasonal Warehouse Associate: Michael Tomas PhD, Phone: [phone] Elsa Kiki Hill MD LAB - SEROLOGY ORDERABLES [facility] ([facility]) [address] [place] [address], [facility] * (ABNORMAL) GLENYS STAINING PATTERNS REFLEXED (05/10/2018 11:58 AM CDT) Only the most recent of3 resultswithin the time period is included. Speckled Pattern 1:1280(H) 05/11/20 18 6:12 PM CDT [facility] ([facility]) Note Comment 05/11/2018 6:12 PM CDT [facility] ([facility]) Comment: A positive TASHA result may occur in healthy individuals (low titer) or be associated with a variety of diseases. See interpretation chart which is not all inclusive: Pattern Antigen Detected Suggested Disease Association Homogeneous DNA(ds,ss), SLE - High titers Nucleosomes, Histones Drug-induced SLE Speckled Sm, GERIATRICS PHYSICIAN, SCL-70, SLE,MCTD,PSS (diffuse form), SS-A/SS-B Sjogrens Nucleolar SCL-70, PM-1/SCL High titers Scleroderma, PM/DM Centromere Centromere PSS (limited form) w/Crest syndrome variable Nuclear Dot [id number] Primary Biliary Cirrhosis Nuclear GP210, Primary Biliary Cirrhosis Membrane sarah A,B,C Blood BLOOD SPECIMEN / Unknown Lab Venipuncture / Unknown 05/10/2018 11:58 AM CDT 05/10/2018 12:35 PM CDT Narrative [facility] ([facility]) - 05/11/2018 6:12 PM CDT Performed at: [address] [place] [address] [address] [facility], [place], [place] [id number] Seasonal Warehouse Associate: Michael Tomas PhD, Phone: [phone] Elsa Hill MD LAB - PATHOLOGY /CYTOLOGY ORDERABLES [facility] ([facility]) [address] [place] [address], [facility] * GERIATRICS PHYSICIAN ANTIBODY (05/10/2018 11:58 AM CDT) Only the most recent of3 resultswithin the time period is included. SM/GERIATRICS PHYSICIAN Antibody 10.5 0.0 - 19.9 Units 05/12/2018 10:[address] [facility] Comment: AMBROSE Antibody Numeric Result Interpretation: <20.0 Units: Negative 20.0 - 39.0 Units: Weakly Positive >39.0 Units: Positive Blood BLOOD SPECIMEN / Unknown Lab Venipuncture / Unknown 05/10/2018 11:58 AM CDT 05/10/2018 12:36 PM CDT Elsa Hill MD LAB - CHEMISTRY ORDERABLES Performing Organization Address City/[facility]/ZIP Co de Phone Number [facility] [address] [phone] * (ABNORMAL) HISTONE ANTIBODY (05/10/2018 11:58 AM CDT) Anti-Histone Antibody 1.8(H) 0.0 - 0.9 Units 05/16/2018 3:22 PM CDT [facility] ([facility]) Comment: Negative <1.0 Weak Positive 1.0 - 1.5 Moderate Positive 1.6 - 2.5 Strong Positive >2.5 Blood BLOOD SPECIMEN / Unknown Lab Venipuncture / Unknown 05/10/2018 11:58 AM CDT 05/10/2018 12:36 PM CDT Narrative [facility] ([facility]) - 05/16/2018 3:22 PM CDT Performed at: [address] [place] [id number] Seasonal Warehouse Associate: Akshat Walter MD, Phone: [phone] Elsa Hill MD LAB - CHEMISTRY ORDERABLES Performing Organization Address City/[facility] Co de Phone Number [facility] ([facility]) [address] [place] [address] * SS-A (SJOGREN'S) ANTIBODY (05/10/2018 11:58 AM CDT) Only the most recent of3 resultswithin the time period is included. SS-A (Ro) Antibody 2.6 0.0 - 19.9 Units 05/12/2018 10:[address] [facility] Comment: AMBROSE Antibody Numeric Result Interpretation: <20.0 Units: Negative 20.0 - 39.0 Units: Weakly Positive >39.0 Units: Positive Blood BLOOD SPECIMEN / Unknown Lab Venipuncture / Unknown 05/10/2018 11:58 AM CDT 05/10/2018 12:35 PM CDT Elsa Hill MD LAB - CHEMISTRY ORDERABLES [address] [phone] * LAB RESULTS ORDER (03/09/2018 1:57 PM CDT) Only the most recent of2 resultswithin the time period is included. Narrative 03/09/2018 1:57 PM CDT Ordered by an unspecified provider. Scanned Document LAB - THERAPEUTIC DR CASTLE MONITORING ORDERABLES * XR CERVICAL SPINE 6VW OR MORE (08/10/2017 12:55 PM CDT) Anatomical Region Laterality Modality Spine Other Impressions 08/10/2017 2:29 PM CDT IMPRESSION: No acute fracture or subluxation identified. Mild degenerative disc disease in the lower cervical spine C5-C7. Dictated by Liz Durand MD (radiology asst). I, Dr. GENO CUETO M.D. have personally reviewed and interpreted this examination/study. This report was electronically signed by GENO CUETO M.D. on 08/10/2017 2:29 PM . Narrative 08/10/2017 2:29 PM CDT EXAMINATION: XR SPINE CERVICAL COMPLETE INC OBL AND FLEX/EXT HISTORY: Neck pain COMPARISON: Comparison is made with a study from 12/17/2015 FINDINGS: There are mild degenerative changes in the lower cervical spine otherwise the vertebral bodies are normally aligned. No acute fracture or compression deformity is identified. The intervertebral disc spaces are narrowed from C5-C7. The dens is intact. The predental interval and prevertebral soft tissues are normal. Bone density and texture are normal. Procedure Note Geno Cueto MD - 01/13/2018 EXAMINATION: XR SPINE CERVICAL COMPLETE INC OBL AND FLEX/EXT HISTORY: Neck pain COMPARISON: Comparison is made with a study from 12/17/2015 FINDINGS: There are mild degenerative changes in the lower cervical spine otherwisethe vertebral bodies are normally aligned. No acute fracture orcompression deformity is identified. The intervertebral disc spaces arenarrowed from C5-C7. The dens is intact. The predental interval and prevertebral soft tissues are normal. Bone densityand texture are normal. IMPRESSION IMPRESSION: No acute fracture or subluxation identified. Mild degenerative disc disease in the lower cervical spine C5-C7. Dictated by Liz Durand MD (radiology asst). IDr. GENO M.D. have personally reviewed and interpretedthis examination/study. This report was electronically signed by GENO CUETO M.D. on08/10/2017 2:29 PM . Historical Provider MD MACY Stone ORDERABLES * (ABNORMAL) URINALYSIS REFLEX TO MICROSCOPIC NO CULTURE (08/10/2017 12:07 PM CDT) Color UA Yellow Straw, Yellow, Colorless, Light Yellow [facility] Clarity UA Clear Clear [facility] Specific [place] UA 1.006 1.001 - 1.030 [facility] pH UA 6.5 5.0 - 8.0 [facility] Protein UA Negative <=20 mg/dL [facility] Glucose UA Negative Negative mg/dL [facility] Ketone UA Negative Negative mg/dL [facility] Bilirubin UA Negative Negative mg/dL [facility] Blood UA Negative Negative [facility] Nitrite UA Negative Negative [facility] Leukocyte Esterase Negative Negative [facility] Urobilinogen UA <2.0 <2.0 mg/dL [facility] RBC UA 1 0 - 8 /HPF [facility] WBC UA 2 0 - 2 /HPF [facility] Bacteria UA Many(A) Rare, Occasional, None /HPF [facility] Squamous Epithelial Cells UA 4(H) 0 - 1 /HPF [facility] Mucus UA Rare(A) None /LPF [facility] Urine specimen (specimen) 08/10/2017 12:07 PM CDT 08/10/2017 12:20 PM CDT Alicia Fraser MD LAB - URINALYS IS ORDERABLES Performing Organization Address City/[facility]/ZIP Co de Phone Number [facility] [address] [place] [address] * ALDOLASE (08/10/2017 12:07 PM CDT) Only the most recent of2 resultswithin the time period is included. Pathologist [facility] Aldolase 3.4 3.3 - 10.3 U/L [facility] Blood specimen (specimen) BLOOD SPECIMEN / Unknown 08/10/2017 12:07 PM CDT 08/10/2017 12:21 PM CDT Narrative [facility] - 08/11/2017 3:17 PM CDT Performed at: [address] [place] [id number] Seasonal Warehouse Associate: Michael Tomas PhD, Phone: [phone] Alicia Fraser MD LAB - CHEMISTR Y ORDERABLES Performing Organization Address City/[facility] Co de Phone Number [facility] * LDH BLOOD (08/10/2017 12:07 PM CDT) Only the most recent of2 resultswithin the time period is included. Pathologist [facility] LDH Total 218 125 - 243 Units/L [facility] Blood specimen (specimen) BLOOD SPECIMEN / Unknown 08/10/2017 12:07 PM CDT 08/10/2017 12:20 PM CDT Alicia Fraser MD LAB - CHEMISTR Y ORDERABLES Performing Organization Address City/[facility]/ZIP Co de Phone Number [address] [phone] * CK BLOOD (08/10/2017 12:07 PM CDT) Only the most recent of2 resultswithin the time period is included. Pathologist [facility] CK Total 98 30 - 200 Units/L [facility] Blood specimen (specimen) BLOOD SPECIMEN / Unknown 08/10/2017 12:07 PM CDT 08/10/2017 12:20 PM CDT Alicia Fraser MD LAB - CHEMISTR Y ORDERABLES Performing Organization Address [facility] Co de Phone Number [address] [phone] * SCLERODERMA 70 (SCL) ANTIBODY (09/15/2016 12:12 PM GRAPHIC ART TECHNICIAN) Only the most recent of2 resultswithin the time period is included. SCL-70 Antibody 1.8 0.0 - 19.9 Units [facility] Comment: AMBROSE Antibody Numeric Result Interpretation: <20.0 Units: Negative 20.0 - 39.0 Units: Weakly Positive >39.0 Units: Positive Blood specimen (specimen) BLOOD SPECIMEN / Unknown 09/15/2016 12:12 PM GRAPHIC ART TECHNICIAN 09/15/2016 1:08 PM GRAPHIC ART TECHNICIAN Alicia Fraser MD LAB - CHEMISTR Y ORDERABLES Performing Organization Address [facility] Co de Phone Number [address] [phone] * DNA ANTIBODY DOUBLE STRANDED (09/15/2016 12:12 PM GRAPHIC ART TECHNICIAN) Only the most recent of2 resultswithin the time period is included. [facility] dsDNA Antibody 8 0 - 29 IU/mL [facility] Comment: dsDNA Antibody Numeric Result Interpretation: 0 - 29 IU/mL: Negative 30 - 75 IU/mL: Borderline >75 IU/mL: Positive Blood specimen (specimen) BLOOD SPECIMEN / Unknown 09/15/2016 12:12 PM GRAPHIC ART TECHNICIAN 09/15/2016 1:08 PM GRAPHIC ART TECHNICIAN Alicia Fraser MD LAB - HEMATOLO GY ORDERABLES Performing Organization Address [facility] Co de Phone Number [address] [phone] * G6PD QUANTITATIVE (03/08/2016 8:07 AM CDT) G-6-PD Quantitative 7.5 4.6 - 13.5 U/g [facility] ([facility]) Comment: Test Performed at: [facility] [address] [place] [address] ZAN COATS MD PHD 03/08/2016 8:07 AM CDT 03/10/2016 6:25 AM CDT Perla Freeman MD LAB - CHEMISTRY OR DERABLES [facility] ([facility]) * METHICILLIN RAPID TEST (02/20/2016 12:07 PM CDT) Methicillin Rapid Test Negative Negative [facility] Scalp 02/20/2016 12:0 7 PM CDT 02/22/2016 2:[address] [facility] - 02/22/2016 2:56 PM CDT SOURCE = SKIN - SCALP Methicillin Susceptible Staphylococcus aureus (MSSA) by penicillin binding protein immunoassay. Conventional susceptibility testing to follow. Perla Freeman MD LAB - MICROBIOLOGY ORDERABLES Performing Organization Address [facility] Co de Phone Number [address] [phone] * PATHOLOGY TISSUE FOR DERMATOLOGY (02/20/2016 12:05 PM CDT) Result CASE: [id number] PATIENT: ADELINA HERNANDEZ PATHOLOGIC DIAGNOSIS: Right vertex of scalp: INFLAMMATORY, SCARRING ALOPECIA (see microscopic description and comment) CLINICAL DATA: R/O discoid lupus vs other scarring alopecia. GROSS DESCRIPTION: Received is one formalin filled container labeled with the patients name and designated right vertex of scalp. The specimen consists of a punch biopsy measuring [id number]. Jar 0. MICROSCOPIC DESCRIPTION: Sections are submitted for alopecia protocol. Horizontal and vertical oriented sections show a decreased number of terminal hair follicles with prominent fibrosis. There is a lymphoplasmacytic inflammatory infiltrate that is predominately perifollicular in distribution. The inflammation is noted at multiple levels of along the hair shaft, and a ruptured follicle with free hair and surrounding lymphohistiocytic inflammatory response without neutrophils is noted in the deep dermis / subcutis. Fibrous streamers with solar elastosis (Arao-Allred bodies) are seen. There is also eccentric thinning of hair follicle epithelium. While there is subtle suggestion of vacuolar (interface) dermatitis, this finding is not striking and only rare dyskeratosis is seen (best seen on deeper vertical sections). A focal separation of the epidermis from the dermis is evident which is favored to be secondary to extensive vacuolar change. Periodic acid-Aj (PAS) stain does not highlight a thickened basement membrane, but shows disruption of the basement membrane and is negative for fungal elements in the available sections. Original and deeper sections were obtained and examined. 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 Clinicopathologic correlation is recommended. This case was reviewed by and discussed with Dr. Perla Freeman. Electronically signed out by Marni Eric M.D., PhD. 02/25/2016 8:32:49AM [facility] Comment: Performed at: Dermatopathology Laboratory [facility] Department of Dermatology [address] [facility] [address]th [place] [address] Phone number: [phone] FAX: [phone] Skin (tissue) specimen (specimen) 02/20/2016 12:05 PM CDT 02/23/2016 Narrative [facility] - 02/25/2016 8:33 AM CDT Specimen A: Type->Punch Site->R vertex of scalp History->patches of scarring alopecia with red to violaceous thin plaques wtih overlying erosions and crust; sees Rheum for + TASHA and strong fam hx of SLE (not officially dx with SLE) Impression->r/o discoid lupus vs other scarring alopecia Check Margins:->N/A Prior Biopsy->N/A Perla Freeman MD LAB - PATHOLOGY/CY TOLOGY ORDERABLES [facility] [address] [place] [address]. [address] [place] [address], [facility] [phone] * PATHOLOGY/GENETICS HISTORICAL-ONBASE (02/20/2016) 02/20/2016 Narrative [facility] - 02/25/2016 9:40 AM CDT Historical Provider LAB - CHEMISTRY O FLOR [facility] [address] [place] [address], [facility] * XR KNEE RIGHT 4VW OR MORE (12/17/2015 12:00 PM GRAPHIC ART TECHNICIAN) Anatomical Region Laterality Modality Lower Extremity Other Impressions 12/17/2015 2:56 PM GRAPHIC ART TECHNICIAN Impression: 1. Mild right acromioclavicular joint osteoarthritis. 2. Bony irregularity at the left greater tuberosity suggestive of chronic rotator cuff tendinopathy. 3. No significant arthritis in the bilateral hips. 4. 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 5. Mild to moderate bilateral knee osteoarthritis. Report dictated by Joel Loya MD (radiology asst). This report was approved by Joel Loya M.D. on 12/17/2015 2:19 PM . I, Dr. GABRIEL PIRES MD have personally reviewed and interpreted this examination/study. This report was electronically signed by GABRIEL PIRES MD on 12/17/2015 2:56 PM . Narrative 12/17/2015 2:56 PM GRAPHIC ART TECHNICIAN Exam: 1. Right shoulder, 2 views 2. Left shoulder, 2 views 3. Bilateral hips and pelvis, 4 views 4. Right hand, 3 views 5. Right wrist, 2 views 6. Left hand, 3 views 7. Left wrist, 2 views 8. Right knee, 3 views weightbearing 9. Left knee, 3 views. Date: 12/17/2015 History: pain, OA Comparison: None available Findings: Right shoulder: The alignment of the glenohumeral joint is normal. There is mild acromioclavicular joint osteoarthritis. There is no acute fracture or dislocation. Left shoulder: The alignment of the glenohumeral joint is normal. The acromioclavicular joint is intact. There is chronic bony irregularity at the greater tuberosity suggesting chronic rotator cuff tendinopathy. There is no acute fracture or dislocation. Bilateral hips and pelvis: The pelvic ring is intact. There is no fracture or dislocation. There is no widening or displacement of the sacroiliac joints. There is sclerosis of the pubic symphysis with mild bony irregularity which may represent osteitis pubis. There is good anatomical alignment of the femoral heads within the acetabula bilaterally. Bilateral hip joint spaces appear preserved. Right hand: There is no fracture or dislocation. There is mild osteoarthritis involving multiple interphalangeal joints. There are no erosive changes. There is no soft tissue swelling. Right wrist: There is no fracture or dislocation. There is moderate to severe first carpometacarpal joint osteoarthritis. There are no erosive changes. There is no soft tissue swelling. Left hand: There is no fracture or dislocation. There is mild osteoarthritis involving multiple interphalangeal joints. There are no erosive changes. There is no soft tissue swelling. Left wrist: There is no fracture or dislocation. There is moderate to severe first carpometacarpal joint osteoarthritis. There are no erosive changes. There is no soft tissue swelling. Right knee: There is no acute fracture or dislocation. No joint effusion is present. Moderate tricompartmental osteophytes are present with mild medial and moderate patellofemoral compartment joint space narrowing. There is no focal soft tissue swelling. Left knee: There is no acute fracture or dislocation. No joint effusion is present. Moderate tricompartmental osteophytes are present with mild medial and mild patellofemoral joint space narrowing. There is no focal soft tissue swelling. Bone mineralization the above joints is normal. Procedure Note Gabriel Pires MD - 01/14/2018 Exam: 1. Right shoulder, 2 views 2. Left shoulder, 2 views 3. Bilateral hips and pelvis, 4 views 4. Right hand, 3 views 5. Right wrist, 2 views 6. Left hand, 3 views 7. Left wrist, 2 views 8. Right knee, 3 views weightbearing 9. Left knee, 3 views. Date: 12/17/2015 History: pain, OA Comparison: None available Findings: Right shoulder: The alignment of the glenohumeral joint is normal. There is mildacromioclavicular joint osteoarthritis. There is no acute fracture ordislocation. Left shoulder: The alignment of the glenohumeral joint is normal. The acromioclavicularjoint is intact. There is chronic bony irregularity at the greatertuberosity suggesting chronic rotator cuff tendinopathy. There is no acutefracture or dislocation. Bilateral hips and pelvis: The pelvic ring is intact. There is no fracture or dislocation. There isno widening or displacement of the sacroiliac joints. There is sclerosisof the pubic symphysis with mild bony irregularity which may representosteitis pubis. There is good anatomical alignment of the femoral heads within the acetabulabilaterally. Bilateral hip joint spaces appear preserved. Right hand: There is no fracture or dislocation. There is mild osteoarthritisinvolving multiple interphalangeal joints. There are no erosive changes.There is no soft tissue swelling. Right wrist: There is no fracture or dislocation. There is moderate to severe firstcarpometacarpal joint osteoarthritis. There are no erosive changes. Thereis no soft tissue swelling. Left hand: There is no fracture or dislocation. There is mild osteoarthritisinvolving multiple interphalangeal joints. There are no erosive changes.There is no soft tissue swelling. Left wrist: There is no fracture or dislocation. There is moderate to severe firstcarpometacarpal joint osteoarthritis. There are no erosive changes. Thereis no soft tissue swelling. Right knee: There is no acute fracture or dislocation. No joint effusion is present.Moderate tricompartmental osteophytes are present with mild medial andmoderate patellofemoral compartment joint space narrowing. There is nofocal soft tissue swelling. Left knee: There is no acute fracture or dislocation. No joint effusion is present.Moderate tricompartmental osteophytes are present with mild medial andmild patellofemoral joint space narrowing. There is no focal soft tissueswelling. Bone mineralization the above joints is normal. IMPRESSION Impression: 1. Mild right acromioclavicular joint osteoarthritis. 2. Bony irregularity at the left greater tuberosity suggestive of chronicrotator cuff tendinopathy. 3. No significant arthritis in the bilateral hips. 4. 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 5. Mild to moderate bilateral knee osteoarthritis. Report dictated by Joel Loya MD (radiology asst). This report was approved by Joel Loya M.D. on 12/17/2015 2:19 PM . I, Dr. GABRIEL PIRES MD have personally reviewed and interpreted thisexamination/study. This report was electronically signed by GABRIEL PIRES MD on 12/17/20152:56 PM . Alicia Fraser MD DIAGNOSTIC ANTONIETA GING ORDERABLES * XR KNEE LEFT 4VW OR MORE (12/17/2015 12:00 PM GRAPHIC ART TECHNICIAN) Anatomical Region Laterality Modality Lower Extremity Other Impressions 12/17/2015 2:56 PM GRAPHIC ART TECHNICIAN Impression: 1. Mild right acromioclavicular joint osteoarthritis. 2. Bony irregularity at the left greater tuberosity suggestive of chronic rotator cuff tendinopathy. 3. No significant arthritis in the bilateral hips. 4. 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 5. Mild to moderate bilateral knee osteoarthritis. Report dictated by Joel Loya MD (radiology asst). This report was approved by Joel Loya M.D. on 12/17/2015 2:19 PM . IDr. GABRIEL MD have personally reviewed and interpreted this examination/study. This report was electronically signed by GABRIEL PIRES MD on 12/17/2015 2:56 PM . Narrative 12/17/2015 2:56 PM GRAPHIC ART TECHNICIAN Exam: 1. Right shoulder, 2 views 2. Left shoulder, 2 views 3. Bilateral hips and pelvis, 4 views 4. Right hand, 3 views 5. Right wrist, 2 views 6. Left hand, 3 views 7. Left wrist, 2 views 8. Right knee, 3 views weightbearing 9. Left knee, 3 views. Date: 12/17/2015 History: pain, OA Comparison: None available Findings: Right shoulder: The alignment of the glenohumeral joint is normal. There is mild acromioclavicular joint osteoarthritis. There is no acute fracture or dislocation. Left shoulder: The alignment of the glenohumeral joint is normal. The acromioclavicular joint is intact. There is chronic bony irregularity at the greater tuberosity suggesting chronic rotator cuff tendinopathy. There is no acute fracture or dislocation. Bilateral hips and pelvis: The pelvic ring is intact. There is no fracture or dislocation. There is no widening or displacement of the sacroiliac joints. There is sclerosis of the pubic symphysis with mild bony irregularity which may represent osteitis pubis. There is good anatomical alignment of the femoral heads within the acetabula bilaterally. Bilateral hip joint spaces appear preserved. Right hand: There is no fracture or dislocation. There is mild osteoarthritis involving multiple interphalangeal joints. There are no erosive changes. There is no soft tissue swelling. Right wrist: There is no fracture or dislocation. There is moderate to severe first carpometacarpal joint osteoarthritis. There are no erosive changes. There is no soft tissue swelling. Left hand: There is no fracture or dislocation. There is mild osteoarthritis involving multiple interphalangeal joints. There are no erosive changes. There is no soft tissue swelling. Left wrist: There is no fracture or dislocation. There is moderate to severe first carpometacarpal joint osteoarthritis. There are no erosive changes. There is no soft tissue swelling. Right knee: There is no acute fracture or dislocation. No joint effusion is present. Moderate tricompartmental osteophytes are present with mild medial and moderate patellofemoral compartment joint space narrowing. There is no focal soft tissue swelling. Left knee: There is no acute fracture or dislocation. No joint effusion is present. Moderate tricompartmental osteophytes are present with mild medial and mild patellofemoral joint space narrowing. There is no focal soft tissue swelling. Bone mineralization the above joints is normal. Procedure Note Gabriel Pires MD - 01/14/2018 Exam: 1. Right shoulder, 2 views 2. Left shoulder, 2 views 3. Bilateral hips and pelvis, 4 views 4. Right hand, 3 views 5. Right wrist, 2 views 6. Left hand, 3 views 7. Left wrist, 2 views 8. Right knee, 3 views weightbearing 9. Left knee, 3 views. Date: 12/17/2015 History: pain, OA Comparison: None available Findings: Right shoulder: The alignment of the glenohumeral joint is normal. There is mildacromioclavicular joint osteoarthritis. There is no acute fracture ordislocation. Left shoulder: The alignment of the glenohumeral joint is normal. The acromioclavicularjoint is intact. There is chronic bony irregularity at the greatertuberosity suggesting chronic rotator cuff tendinopathy. There is no acutefracture or dislocation. Bilateral hips and pelvis: The pelvic ring is intact. There is no fracture or dislocation. There isno widening or displacement of the sacroiliac joints. There is sclerosisof the pubic symphysis with mild bony irregularity which may representosteitis pubis. There is good anatomical alignment of the femoral heads within the acetabulabilaterally. Bilateral hip joint spaces appear preserved. Right hand: There is no fracture or dislocation. There is mild osteoarthritisinvolving multiple interphalangeal joints. There are no erosive changes.There is no soft tissue swelling. Right wrist: There is no fracture or dislocation. There is moderate to severe firstcarpometacarpal joint osteoarthritis. There are no erosive changes. Thereis no soft tissue swelling. Left hand: There is no fracture or dislocation. There is mild osteoarthritisinvolving multiple interphalangeal joints. There are no erosive changes.There is no soft tissue swelling. Left wrist: There is no fracture or dislocation. There is moderate to severe firstcarpometacarpal joint osteoarthritis. There are no erosive changes. Thereis no soft tissue swelling. Right knee: There is no acute fracture or dislocation. No joint effusion is present.Moderate tricompartmental osteophytes are present with mild medial andmoderate patellofemoral compartment joint space narrowing. There is nofocal soft tissue swelling. Left knee: There is no acute fracture or dislocation. No joint effusion is present.Moderate tricompartmental osteophytes are present with mild medial andmild patellofemoral joint space narrowing. There is no focal soft tissueswelling. Bone mineralization the above joints is normal. IMPRESSION Impression: 1. Mild right acromioclavicular joint osteoarthritis. 2. Bony irregularity at the left greater tuberosity suggestive of chronicrotator cuff tendinopathy. 3. No significant arthritis in the bilateral hips. 4. 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 5. Mild to moderate bilateral knee osteoarthritis. Report dictated by Joel Loya MD (radiology asst). This report was approved by Joel Loya M.D. on 12/17/2015 2:19 PM . I, Dr. GABRIEL PIRES MD have personally reviewed and interpreted thisexamination/study. This report was electronically signed by GABRIEL PIRES MD on 12/17/20152:56 PM . Alicia Fraser MD DIAGNOSTIC ANTONIETA GING ORDERABLES * XR PELVIS W BILAT HIP 2VW (12/17/2015 12:00 PM GRAPHIC ART TECHNICIAN) Anatomical Region Laterality Modality Pelvis, Lower Extremity Other Impressions 12/17/2015 2:56 PM GRAPHIC ART TECHNICIAN Impression: 1. Mild right acromioclavicular joint osteoarthritis. 2. Bony irregularity at the left greater tuberosity suggestive of chronic rotator cuff tendinopathy. 3. No significant arthritis in the bilateral hips. 4. 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 5. Mild to moderate bilateral knee osteoarthritis. Report dictated by Joel Loya MD (radiology asst). This report was approved by Joel Loya M.D. on 12/17/2015 2:19 PM . I, Dr. GABRIEL PIRES MD have personally reviewed and interpreted this examination/study. This report was electronically signed by GABRIEL PIRES MD on 12/17/2015 2:56 PM . Narrative 12/17/2015 2:56 PM GRAPHIC ART TECHNICIAN Exam: 1. Right shoulder, 2 views 2. Left shoulder, 2 views 3. Bilateral hips and pelvis, 4 views 4. Right hand, 3 views 5. Right wrist, 2 views 6. Left hand, 3 views 7. Left wrist, 2 views 8. Right knee, 3 views weightbearing 9. Left knee, 3 views. Date: 12/17/2015 History: pain, OA Comparison: None available Findings: Right shoulder: The alignment of the glenohumeral joint is normal. There is mild acromioclavicular joint osteoarthritis. There is no acute fracture or dislocation. Left shoulder: The alignment of the glenohumeral joint is normal. The acromioclavicular joint is intact. There is chronic bony irregularity at the greater tuberosity suggesting chronic rotator cuff tendinopathy. There is no acute fracture or dislocation. Bilateral hips and pelvis: The pelvic ring is intact. There is no fracture or dislocation. There is no widening or displacement of the sacroiliac joints. There is sclerosis of the pubic symphysis with mild bony irregularity which may represent osteitis pubis. There is good anatomical alignment of the femoral heads within the acetabula bilaterally. Bilateral hip joint spaces appear preserved. Right hand: There is no fracture or dislocation. There is mild osteoarthritis involving multiple interphalangeal joints. There are no erosive changes. There is no soft tissue swelling. Right wrist: There is no fracture or dislocation. There is moderate to severe first carpometacarpal joint osteoarthritis. There are no erosive changes. There is no soft tissue swelling. Left hand: There is no fracture or dislocation. There is mild osteoarthritis involving multiple interphalangeal joints. There are no erosive changes. There is no soft tissue swelling. Left wrist: There is no fracture or dislocation. There is moderate to severe first carpometacarpal joint osteoarthritis. There are no erosive changes. There is no soft tissue swelling. Right knee: There is no acute fracture or dislocation. No joint effusion is present. Moderate tricompartmental osteophytes are present with mild medial and moderate patellofemoral compartment joint space narrowing. There is no focal soft tissue swelling. Left knee: There is no acute fracture or dislocation. No joint effusion is present. Moderate tricompartmental osteophytes are present with mild medial and mild patellofemoral joint space narrowing. There is no focal soft tissue swelling. Bone mineralization the above joints is normal. Procedure Note Gabriel Pires MD - 01/14/2018 Exam: 1. Right shoulder, 2 views 2. Left shoulder, 2 views 3. Bilateral hips and pelvis, 4 views 4. Right hand, 3 views 5. Right wrist, 2 views 6. Left hand, 3 views 7. Left wrist, 2 views 8. Right knee, 3 views weightbearing 9. Left knee, 3 views. Date: 12/17/2015 History: pain, OA Comparison: None available Findings: Right shoulder: The alignment of the glenohumeral joint is normal. There is mildacromioclavicular joint osteoarthritis. There is no acute fracture ordislocation. Left shoulder: The alignment of the glenohumeral joint is normal. The acromioclavicularjoint is intact. There is chronic bony irregularity at the greatertuberosity suggesting chronic rotator cuff tendinopathy. There is no acutefracture or dislocation. Bilateral hips and pelvis: The pelvic ring is intact. There is no fracture or dislocation. There isno widening or displacement of the sacroiliac joints. There is sclerosisof the pubic symphysis with mild bony irregularity which may representosteitis pubis. There is good anatomical alignment of the femoral heads within the acetabulabilaterally. Bilateral hip joint spaces appear preserved. Right hand: There is no fracture or dislocation. There is mild osteoarthritisinvolving multiple interphalangeal joints. There are no erosive changes.There is no soft tissue swelling. Right wrist: There is no fracture or dislocation. There is moderate to severe firstcarpometacarpal joint osteoarthritis. There are no erosive changes. Thereis no soft tissue swelling. Left hand: There is no fracture or dislocation. There is mild osteoarthritisinvolving multiple interphalangeal joints. There are no erosive changes.There is no soft tissue swelling. Left wrist: There is no fracture or dislocation. There is moderate to severe firstcarpometacarpal joint osteoarthritis. There are no erosive changes. Thereis no soft tissue swelling. Right knee: There is no acute fracture or dislocation. No joint effusion is present.Moderate tricompartmental osteophytes are present with mild medial andmoderate patellofemoral compartment joint space narrowing. There is nofocal soft tissue swelling. Left knee: There is no acute fracture or dislocation. No joint effusion is present.Moderate tricompartmental osteophytes are present with mild medial andmild patellofemoral joint space narrowing. There is no focal soft tissueswelling. Bone mineralization the above joints is normal. IMPRESSION Impression: 1. Mild right acromioclavicular joint osteoarthritis. 2. Bony irregularity at the left greater tuberosity suggestive of chronicrotator cuff tendinopathy. 3. No significant arthritis in the bilateral hips. 4. 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 5. Mild to moderate bilateral knee osteoarthritis. Report dictated by Joel Loya MD (radiology asst). This report was approved by Joel Loya M.D. on 12/17/2015 2:19 PM . I, Dr. GABRIEL PIRES MD have personally reviewed and interpreted thisexamination/study. This report was electronically signed by GABRIEL PIRES MD on 12/17/20152:56 PM . Alicia Fraser MD DIAGNOSTIC ANTONIETA GING ORDERABLES * XR HAND RIGHT 3VW OR MORE (12/17/2015 12:00 PM GRAPHIC ART TECHNICIAN) Anatomical Region Laterality Modality Wrist / Hand Other Impressions 12/17/2015 2:56 PM GRAPHIC ART TECHNICIAN Impression: 1. Mild right acromioclavicular joint osteoarthritis. 2. Bony irregularity at the left greater tuberosity suggestive of chronic rotator cuff tendinopathy. 3. No significant arthritis in the bilateral hips. 4. 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 5. Mild to moderate bilateral knee osteoarthritis. Report dictated by Joel Loya MD (radiology asst). This report was approved by Joel Loya M.D. on 12/17/2015 2:19 PM . I, Dr. GABRIEL PIRES MD have personally reviewed and interpreted this examination/study. This report was electronically signed by GABRIEL PIRES MD on 12/17/2015 2:56 PM . Narrative 12/17/2015 2:56 PM GRAPHIC ART TECHNICIAN Exam: 1. Right shoulder, 2 views 2. Left shoulder, 2 views 3. Bilateral hips and pelvis, 4 views 4. Right hand, 3 views 5. Right wrist, 2 views 6. Left hand, 3 views 7. Left wrist, 2 views 8. Right knee, 3 views weightbearing 9. Left knee, 3 views. Date: 12/17/2015 History: pain, OA Comparison: None available Findings: Right shoulder: The alignment of the glenohumeral joint is normal. There is mild acromioclavicular joint osteoarthritis. There is no acute fracture or dislocation. Left shoulder: The alignment of the glenohumeral joint is normal. The acromioclavicular joint is intact. There is chronic bony irregularity at the greater tuberosity suggesting chronic rotator cuff tendinopathy. There is no acute fracture or dislocation. Bilateral hips and pelvis: The pelvic ring is intact. There is no fracture or dislocation. There is no widening or displacement of the sacroiliac joints. There is sclerosis of the pubic symphysis with mild bony irregularity which may represent osteitis pubis. There is good anatomical alignment of the femoral heads within the acetabula bilaterally. Bilateral hip joint spaces appear preserved. Right hand: There is no fracture or dislocation. There is mild osteoarthritis involving multiple interphalangeal joints. There are no erosive changes. There is no soft tissue swelling. Right wrist: There is no fracture or dislocation. There is moderate to severe first carpometacarpal joint osteoarthritis. There are no erosive changes. There is no soft tissue swelling. Left hand: There is no fracture or dislocation. There is mild osteoarthritis involving multiple interphalangeal joints. There are no erosive changes. There is no soft tissue swelling. Left wrist: There is no fracture or dislocation. There is moderate to severe first carpometacarpal joint osteoarthritis. There are no erosive changes. There is no soft tissue swelling. Right knee: There is no acute fracture or dislocation. No joint effusion is present. Moderate tricompartmental osteophytes are present with mild medial and moderate patellofemoral compartment joint space narrowing. There is no focal soft tissue swelling. Left knee: There is no acute fracture or dislocation. No joint effusion is present. Moderate tricompartmental osteophytes are present with mild medial and mild patellofemoral joint space narrowing. There is no focal soft tissue swelling. Bone mineralization the above joints is normal. Procedure Note Gabriel Pires MD - 01/14/2018 Exam: 1. Right shoulder, 2 views 2. Left shoulder, 2 views 3. Bilateral hips and pelvis, 4 views 4. Right hand, 3 views 5. Right wrist, 2 views 6. Left hand, 3 views 7. Left wrist, 2 views 8. Right knee, 3 views weightbearing 9. Left knee, 3 views. Date: 12/17/2015 History: pain, OA Comparison: None available Findings: Right shoulder: The alignment of the glenohumeral joint is normal. There is mildacromioclavicular joint osteoarthritis. There is no acute fracture ordislocation. Left shoulder: The alignment of the glenohumeral joint is normal. The acromioclavicularjoint is intact. There is chronic bony irregularity at the greatertuberosity suggesting chronic rotator cuff tendinopathy. There is no acutefracture or dislocation. Bilateral hips and pelvis: The pelvic ring is intact. There is no fracture or dislocation. There isno widening or displacement of the sacroiliac joints. There is sclerosisof the pubic symphysis with mild bony irregularity which may representosteitis pubis. There is good anatomical alignment of the femoral heads within the acetabulabilaterally. Bilateral hip joint spaces appear preserved. Right hand: There is no fracture or dislocation. There is mild osteoarthritisinvolving multiple interphalangeal joints. There are no erosive changes.There is no soft tissue swelling. Right wrist: There is no fracture or dislocation. There is moderate to severe firstcarpometacarpal joint osteoarthritis. There are no erosive changes. Thereis no soft tissue swelling. Left hand: There is no fracture or dislocation. There is mild osteoarthritisinvolving multiple interphalangeal joints. There are no erosive changes.There is no soft tissue swelling. Left wrist: There is no fracture or dislocation. There is moderate to severe firstcarpometacarpal joint osteoarthritis. There are no erosive changes. Thereis no soft tissue swelling. Right knee: There is no acute fracture or dislocation. No joint effusion is present.Moderate tricompartmental osteophytes are present with mild medial andmoderate patellofemoral compartment joint space narrowing. There is nofocal soft tissue swelling. Left knee: There is no acute fracture or dislocation. No joint effusion is present.Moderate tricompartmental osteophytes are present with mild medial andmild patellofemoral joint space narrowing. There is no focal soft tissueswelling. Bone mineralization the above joints is normal. IMPRESSION Impression: 1. Mild right acromioclavicular joint osteoarthritis. 2. Bony irregularity at the left greater tuberosity suggestive of chronicrotator cuff tendinopathy. 3. No significant arthritis in the bilateral hips. 4. 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 5. Mild to moderate bilateral knee osteoarthritis. Report dictated by Joel Loya MD (radiology asst). This report was approved by Joel Loya M.D. on 12/17/2015 2:19 PM . I, Dr. GABRIEL PIRES MD have personally reviewed and interpreted thisexamination/study. This report was electronically signed by GABRIEL PIRES MD on 12/17/20152:56 PM . Alicia Bandlamudi Bria MD DIAGNOSTIC ANTONIETA GING ORDERABLES * XR HAND LEFT 3VW OR MORE (12/17/2015 12:00 PM GRAPHIC ART TECHNICIAN) Anatomical Region Laterality Modality Wrist / Hand Other Impressions 12/17/2015 2:56 PM GRAPHIC ART TECHNICIAN Impression: 1. Mild right acromioclavicular joint osteoarthritis. 2. Bony irregularity at the left greater tuberosity suggestive of chronic rotator cuff tendinopathy. 3. No significant arthritis in the bilateral hips. 4. 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 5. Mild to moderate bilateral knee osteoarthritis. Report dictated by Joel Loya MD (radiology asst). This report was approved by Joel Loya M.D. on 12/17/2015 2:19 PM . I, Dr. GABRIEL PIRES MD have personally reviewed and interpreted this examination/study. This report was electronically signed by GABRIEL PIRES MD on 12/17/2015 2:56 PM . Narrative 12/17/2015 2:56 PM GRAPHIC ART TECHNICIAN Exam: 1. Right shoulder, 2 views 2. Left shoulder, 2 views 3. Bilateral hips and pelvis, 4 views 4. Right hand, 3 views 5. Right wrist, 2 views 6. Left hand, 3 views 7. Left wrist, 2 views 8. Right knee, 3 views weightbearing 9. Left knee, 3 views. Date: 12/17/2015 History: pain, OA Comparison: None available Findings: Right shoulder: The alignment of the glenohumeral joint is normal. There is mild acromioclavicular joint osteoarthritis. There is no acute fracture or dislocation. Left shoulder: The alignment of the glenohumeral joint is normal. The acromioclavicular joint is intact. There is chronic bony irregularity at the greater tuberosity suggesting chronic rotator cuff tendinopathy. There is no acute fracture or dislocation. Bilateral hips and pelvis: The pelvic ring is intact. There is no fracture or dislocation. There is no widening or displacement of the sacroiliac joints. There is sclerosis of the pubic symphysis with mild bony irregularity which may represent osteitis pubis. There is good anatomical alignment of the femoral heads within the acetabula bilaterally. Bilateral hip joint spaces appear preserved. Right hand: There is no fracture or dislocation. There is mild osteoarthritis involving multiple interphalangeal joints. There are no erosive changes. There is no soft tissue swelling. Right wrist: There is no fracture or dislocation. There is moderate to severe first carpometacarpal joint osteoarthritis. There are no erosive changes. There is no soft tissue swelling. Left hand: There is no fracture or dislocation. There is mild osteoarthritis involving multiple interphalangeal joints. There are no erosive changes. There is no soft tissue swelling. Left wrist: There is no fracture or dislocation. There is moderate to severe first carpometacarpal joint osteoarthritis. There are no erosive changes. There is no soft tissue swelling. Right knee: There is no acute fracture or dislocation. No joint effusion is present. Moderate tricompartmental osteophytes are present with mild medial and moderate patellofemoral compartment joint space narrowing. There is no focal soft tissue swelling. Left knee: There is no acute fracture or dislocation. No joint effusion is present. Moderate tricompartmental osteophytes are present with mild medial and mild patellofemoral joint space narrowing. There is no focal soft tissue swelling. Bone mineralization the above joints is normal. Procedure Note Gabriel Pires MD - 01/14/2018 Exam: 1. Right shoulder, 2 views 2. Left shoulder, 2 views 3. Bilateral hips and pelvis, 4 views 4. Right hand, 3 views 5. Right wrist, 2 views 6. Left hand, 3 views 7. Left wrist, 2 views 8. Right knee, 3 views weightbearing 9. Left knee, 3 views. Date: 12/17/2015 History: pain, OA Comparison: None available Findings: Right shoulder: The alignment of the glenohumeral joint is normal. There is mildacromioclavicular joint osteoarthritis. There is no acute fracture ordislocation. Left shoulder: The alignment of the glenohumeral joint is normal. The acromioclavicularjoint is intact. There is chronic bony irregularity at the greatertuberosity suggesting chronic rotator cuff tendinopathy. There is no acutefracture or dislocation. Bilateral hips and pelvis: The pelvic ring is intact. There is no fracture or dislocation. There isno widening or displacement of the sacroiliac joints. There is sclerosisof the pubic symphysis with mild bony irregularity which may representosteitis pubis. There is good anatomical alignment of the femoral heads within the acetabulabilaterally. Bilateral hip joint spaces appear preserved. Right hand: There is no fracture or dislocation. There is mild osteoarthritisinvolving multiple interphalangeal joints. There are no erosive changes.There is no soft tissue swelling. Right wrist: There is no fracture or dislocation. There is moderate to severe firstcarpometacarpal joint osteoarthritis. There are no erosive changes. Thereis no soft tissue swelling. Left hand: There is no fracture or dislocation. There is mild osteoarthritisinvolving multiple interphalangeal joints. There are no erosive changes.There is no soft tissue swelling. Left wrist: There is no fracture or dislocation. There is moderate to severe firstcarpometacarpal joint osteoarthritis. There are no erosive changes. Thereis no soft tissue swelling. Right knee: There is no acute fracture or dislocation. No joint effusion is present.Moderate tricompartmental osteophytes are present with mild medial andmoderate patellofemoral compartment joint space narrowing. There is nofocal soft tissue swelling. Left knee: There is no acute fracture or dislocation. No joint effusion is present.Moderate tricompartmental osteophytes are present with mild medial andmild patellofemoral joint space narrowing. There is no focal soft tissueswelling. Bone mineralization the above joints is normal. IMPRESSION Impression: 1. Mild right acromioclavicular joint osteoarthritis. 2. Bony irregularity at the left greater tuberosity suggestive of chronicrotator cuff tendinopathy. 3. No significant arthritis in the bilateral hips. 4. 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 5. Mild to moderate bilateral knee osteoarthritis. Report dictated by Joel Loya MD (radiology asst). This report was approved by Joel Loya M.D. on 12/17/2015 2:19 PM . I, Dr. GABRIEL PIRES MD have personally reviewed and interpreted thisexamination/study. This report was electronically signed by GABRIEL PIRES MD on 12/17/20152:56 PM . Alicia Fraser MD DIAGNOSTIC ANTONIETA GING ORDERABLES * XR WRIST RIGHT 3VW OR MORE (12/17/2015 12:00 PM GRAPHIC ART TECHNICIAN) Anatomical Region Laterality Modality Wrist / Hand Other Impressions 12/17/2015 2:56 PM GRAPHIC ART TECHNICIAN Impression: 1. Mild right acromioclavicular joint osteoarthritis. 2. Bony irregularity at the left greater tuberosity suggestive of chronic rotator cuff tendinopathy. 3. No significant arthritis in the bilateral hips. 4. 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 5. Mild to moderate bilateral knee osteoarthritis. Report dictated by Joel Loya MD (radiology asst). This report was approved by Joel Loya M.D. on 12/17/2015 2:19 PM . I, Dr. GABRIEL PIRES MD have personally reviewed and interpreted this examination/study. This report was electronically signed by GABRIEL PIRES MD on 12/17/2015 2:56 PM . Narrative 12/17/2015 2:56 PM GRAPHIC ART TECHNICIAN Exam: 1. Right shoulder, 2 views 2. Left shoulder, 2 views 3. Bilateral hips and pelvis, 4 views 4. Right hand, 3 views 5. Right wrist, 2 views 6. Left hand, 3 views 7. Left wrist, 2 views 8. Right knee, 3 views weightbearing 9. Left knee, 3 views. Date: 12/17/2015 History: pain, OA Comparison: None available Findings: Right shoulder: The alignment of the glenohumeral joint is normal. There is mild acromioclavicular joint osteoarthritis. There is no acute fracture or dislocation. Left shoulder: The alignment of the glenohumeral joint is normal. The acromioclavicular joint is intact. There is chronic bony irregularity at the greater tuberosity suggesting chronic rotator cuff tendinopathy. There is no acute fracture or dislocation. Bilateral hips and pelvis: The pelvic ring is intact. There is no fracture or dislocation. There is no widening or displacement of the sacroiliac joints. There is sclerosis of the pubic symphysis with mild bony irregularity which may represent osteitis pubis. There is good anatomical alignment of the femoral heads within the acetabula bilaterally. Bilateral hip joint spaces appear preserved. Right hand: There is no fracture or dislocation. There is mild osteoarthritis involving multiple interphalangeal joints. There are no erosive changes. There is no soft tissue swelling. Right wrist: There is no fracture or dislocation. There is moderate to severe first carpometacarpal joint osteoarthritis. There are no erosive changes. There is no soft tissue swelling. Left hand: There is no fracture or dislocation. There is mild osteoarthritis involving multiple interphalangeal joints. There are no erosive changes. There is no soft tissue swelling. Left wrist: There is no fracture or dislocation. There is moderate to severe first carpometacarpal joint osteoarthritis. There are no erosive changes. There is no soft tissue swelling. Right knee: There is no acute fracture or dislocation. No joint effusion is present. Moderate tricompartmental osteophytes are present with mild medial and moderate patellofemoral compartment joint space narrowing. There is no focal soft tissue swelling. Left knee: There is no acute fracture or dislocation. No joint effusion is present. Moderate tricompartmental osteophytes are present with mild medial and mild patellofemoral joint space narrowing. There is no focal soft tissue swelling. Bone mineralization the above joints is normal. Procedure Note Gabriel Pires MD - 01/14/2018 Exam: 1. Right shoulder, 2 views 2. Left shoulder, 2 views 3. Bilateral hips and pelvis, 4 views 4. Right hand, 3 views 5. Right wrist, 2 views 6. Left hand, 3 views 7. Left wrist, 2 views 8. Right knee, 3 views weightbearing 9. Left knee, 3 views. Date: 12/17/2015 History: pain, OA Comparison: None available Findings: Right shoulder: The alignment of the glenohumeral joint is normal. There is mildacromioclavicular joint osteoarthritis. There is no acute fracture ordislocation. Left shoulder: The alignment of the glenohumeral joint is normal. The acromioclavicularjoint is intact. There is chronic bony irregularity at the greatertuberosity suggesting chronic rotator cuff tendinopathy. There is no acutefracture or dislocation. Bilateral hips and pelvis: The pelvic ring is intact. There is no fracture or dislocation. There isno widening or displacement of the sacroiliac joints. There is sclerosisof the pubic symphysis with mild bony irregularity which may representosteitis pubis. There is good anatomical alignment of the femoral heads within the acetabulabilaterally. Bilateral hip joint spaces appear preserved. Right hand: There is no fracture or dislocation. There is mild osteoarthritisinvolving multiple interphalangeal joints. There are no erosive changes.There is no soft tissue swelling. Right wrist: There is no fracture or dislocation. There is moderate to severe firstcarpometacarpal joint osteoarthritis. There are no erosive changes. Thereis no soft tissue swelling. Left hand: There is no fracture or dislocation. There is mild osteoarthritisinvolving multiple interphalangeal joints. There are no erosive changes.There is no soft tissue swelling. Left wrist: There is no fracture or dislocation. There is moderate to severe firstcarpometacarpal joint osteoarthritis. There are no erosive changes. Thereis no soft tissue swelling. Right knee: There is no acute fracture or dislocation. No joint effusion is present.Moderate tricompartmental osteophytes are present with mild medial andmoderate patellofemoral compartment joint space narrowing. There is nofocal soft tissue swelling. Left knee: There is no acute fracture or dislocation. No joint effusion is present.Moderate tricompartmental osteophytes are present with mild medial andmild patellofemoral joint space narrowing. There is no focal soft tissueswelling. Bone mineralization the above joints is normal. IMPRESSION Impression: 1. Mild right acromioclavicular joint osteoarthritis. 2. Bony irregularity at the left greater tuberosity suggestive of chronicrotator cuff tendinopathy. 3. No significant arthritis in the bilateral hips. 4. 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 5. Mild to moderate bilateral knee osteoarthritis. Report dictated by Joel oLya MD (radiology asst). This report was approved by Joel Loya M.D. on 12/17/2015 2:19 PM . I, Dr. GABRIEL PIRES MD have personally reviewed and interpreted thisexamination/study. This report was electronically signed by GABRIEL PIRES MD on 12/17/20152:56 PM . Alicia Fraser MD DIAGNOSTIC ANTONIETA GING ORDERABLES * XR WRIST LEFT 3VW OR MORE (12/17/2015 12:00 PM GRAPHIC ART TECHNICIAN) Anatomical Region Laterality Modality Wrist / Hand Other Impressions 12/17/2015 2:56 PM GRAPHIC ART TECHNICIAN Impression: 1. Mild right acromioclavicular joint osteoarthritis. 2. Bony irregularity at the left greater tuberosity suggestive of chronic rotator cuff tendinopathy. 3. No significant arthritis in the bilateral hips. 4. 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 5. Mild to moderate bilateral knee osteoarthritis. Report dictated by Joel Loya MD (radiology asst). This report was approved by Joel Loya M.D. on 12/17/2015 2:19 PM . I, Dr. GABRIEL PIRES MD have personally reviewed and interpreted this examination/study. This report was electronically signed by GABRIEL PIRES MD on 12/17/2015 2:56 PM . Narrative 12/17/2015 2:56 PM GRAPHIC ART TECHNICIAN Exam: 1. Right shoulder, 2 views 2. Left shoulder, 2 views 3. Bilateral hips and pelvis, 4 views 4. Right hand, 3 views 5. Right wrist, 2 views 6. Left hand, 3 views 7. Left wrist, 2 views 8. Right knee, 3 views weightbearing 9. Left knee, 3 views. Date: 12/17/2015 History: pain, OA Comparison: None available Findings: Right shoulder: The alignment of the glenohumeral joint is normal. There is mild acromioclavicular joint osteoarthritis. There is no acute fracture or dislocation. Left shoulder: The alignment of the glenohumeral joint is normal. The acromioclavicular joint is intact. There is chronic bony irregularity at the greater tuberosity suggesting chronic rotator cuff tendinopathy. There is no acute fracture or dislocation. Bilateral hips and pelvis: The pelvic ring is intact. There is no fracture or dislocation. There is no widening or displacement of the sacroiliac joints. There is sclerosis of the pubic symphysis with mild bony irregularity which may represent osteitis pubis. There is good anatomical alignment of the femoral heads within the acetabula bilaterally. Bilateral hip joint spaces appear preserved. Right hand: There is no fracture or dislocation. There is mild osteoarthritis involving multiple interphalangeal joints. There are no erosive changes. There is no soft tissue swelling. Right wrist: There is no fracture or dislocation. There is moderate to severe first carpometacarpal joint osteoarthritis. There are no erosive changes. There is no soft tissue swelling. Left hand: There is no fracture or dislocation. There is mild osteoarthritis involving multiple interphalangeal joints. There are no erosive changes. There is no soft tissue swelling. Left wrist: There is no fracture or dislocation. There is moderate to severe first carpometacarpal joint osteoarthritis. There are no erosive changes. There is no soft tissue swelling. Right knee: There is no acute fracture or dislocation. No joint effusion is present. Moderate tricompartmental osteophytes are present with mild medial and moderate patellofemoral compartment joint space narrowing. There is no focal soft tissue swelling. Left knee: There is no acute fracture or dislocation. No joint effusion is present. Moderate tricompartmental osteophytes are present with mild medial and mild patellofemoral joint space narrowing. There is no focal soft tissue swelling. Bone mineralization the above joints is normal. Procedure Note Gabriel Pires MD - 01/14/2018 Exam: 1. Right shoulder, 2 views 2. Left shoulder, 2 views 3. Bilateral hips and pelvis, 4 views 4. Right hand, 3 views 5. Right wrist, 2 views 6. Left hand, 3 views 7. Left wrist, 2 views 8. Right knee, 3 views weightbearing 9. Left knee, 3 views. Date: 12/17/2015 History: pain, OA Comparison: None available Findings: Right shoulder: The alignment of the glenohumeral joint is normal. There is mildacromioclavicular joint osteoarthritis. There is no acute fracture ordislocation. Left shoulder: The alignment of the glenohumeral joint is normal. The acromioclavicularjoint is intact. There is chronic bony irregularity at the greatertuberosity suggesting chronic rotator cuff tendinopathy. There is no acutefracture or dislocation. Bilateral hips and pelvis: The pelvic ring is intact. There is no fracture or dislocation. There isno widening or displacement of the sacroiliac joints. There is sclerosisof the pubic symphysis with mild bony irregularity which may representosteitis pubis. There is good anatomical alignment of the femoral heads within the acetabulabilaterally. Bilateral hip joint spaces appear preserved. Right hand: There is no fracture or dislocation. There is mild osteoarthritisinvolving multiple interphalangeal joints. There are no erosive changes.There is no soft tissue swelling. Right wrist: There is no fracture or dislocation. There is moderate to severe firstcarpometacarpal joint osteoarthritis. There are no erosive changes. Thereis no soft tissue swelling. Left hand: There is no fracture or dislocation. There is mild osteoarthritisinvolving multiple interphalangeal joints. There are no erosive changes.There is no soft tissue swelling. Left wrist: There is no fracture or dislocation. There is moderate to severe firstcarpometacarpal joint osteoarthritis. There are no erosive changes. Thereis no soft tissue swelling. Right knee: There is no acute fracture or dislocation. No joint effusion is present.Moderate tricompartmental osteophytes are present with mild medial andmoderate patellofemoral compartment joint space narrowing. There is nofocal soft tissue swelling. Left knee: There is no acute fracture or dislocation. No joint effusion is present.Moderate tricompartmental osteophytes are present with mild medial andmild patellofemoral joint space narrowing. There is no focal soft tissueswelling. Bone mineralization the above joints is normal. IMPRESSION Impression: 1. Mild right acromioclavicular joint osteoarthritis. 2. Bony irregularity at the left greater tuberosity suggestive of chronicrotator cuff tendinopathy. 3. No significant arthritis in the bilateral hips. 4. 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 5. Mild to moderate bilateral knee osteoarthritis. Report dictated by Joel Loya MD (radiology asst). This report was approved by Joel Loya M.D. on 12/17/2015 2:19 PM . I, Dr. GABRIEL PIRES MD have personally reviewed and interpreted thisexamination/study. This report was electronically signed by GABRIEL PIRES MD on 12/17/20152:56 PM . Alicia Fraser MD DIAGNOSTIC ANTONIETA GING ORDERABLES * XR SHOULDER RIGHT 2VW OR MORE (12/17/2015 12:00 PM GRAPHIC ART TECHNICIAN) Anatomical Region Laterality Modality Upper Extremity Other Impressions 12/17/2015 2:56 PM GRAPHIC ART TECHNICIAN Impression: 1. Mild right acromioclavicular joint osteoarthritis. 2. Bony irregularity at the left greater tuberosity suggestive of chronic rotator cuff tendinopathy. 3. No significant arthritis in the bilateral hips. 4. 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 5. Mild to moderate bilateral knee osteoarthritis. Report dictated by Joel Loya MD (radiology asst). This report was approved by Joel Loya M.D. on 12/17/2015 2:19 PM . I, Dr. GABRIEL PIRES MD have personally reviewed and interpreted this examination/study. This report was electronically signed by GABRIEL PIRES MD on 12/17/2015 2:56 PM . Narrative 12/17/2015 2:56 PM GRAPHIC ART TECHNICIAN Exam: 1. Right shoulder, 2 views 2. Left shoulder, 2 views 3. Bilateral hips and pelvis, 4 views 4. Right hand, 3 views 5. Right wrist, 2 views 6. Left hand, 3 views 7. Left wrist, 2 views 8. Right knee, 3 views weightbearing 9. Left knee, 3 views. Date: 12/17/2015 History: pain, OA Comparison: None available Findings: Right shoulder: The alignment of the glenohumeral joint is normal. There is mild acromioclavicular joint osteoarthritis. There is no acute fracture or dislocation. Left shoulder: The alignment of the glenohumeral joint is normal. The acromioclavicular joint is intact. There is chronic bony irregularity at the greater tuberosity suggesting chronic rotator cuff tendinopathy. There is no acute fracture or dislocation. Bilateral hips and pelvis: The pelvic ring is intact. There is no fracture or dislocation. There is no widening or displacement of the sacroiliac joints. There is sclerosis of the pubic symphysis with mild bony irregularity which may represent osteitis pubis. There is good anatomical alignment of the femoral heads within the acetabula bilaterally. Bilateral hip joint spaces appear preserved. Right hand: There is no fracture or dislocation. There is mild osteoarthritis involving multiple interphalangeal joints. There are no erosive changes. There is no soft tissue swelling. Right wrist: There is no fracture or dislocation. There is moderate to severe first carpometacarpal joint osteoarthritis. There are no erosive changes. There is no soft tissue swelling. Left hand: There is no fracture or dislocation. There is mild osteoarthritis involving multiple interphalangeal joints. There are no erosive changes. There is no soft tissue swelling. Left wrist: There is no fracture or dislocation. There is moderate to severe first carpometacarpal joint osteoarthritis. There are no erosive changes. There is no soft tissue swelling. Right knee: There is no acute fracture or dislocation. No joint effusion is present. Moderate tricompartmental osteophytes are present with mild medial and moderate patellofemoral compartment joint space narrowing. There is no focal soft tissue swelling. Left knee: There is no acute fracture or dislocation. No joint effusion is present. Moderate tricompartmental osteophytes are present with mild medial and mild patellofemoral joint space narrowing. There is no focal soft tissue swelling. Bone mineralization the above joints is normal. Procedure Note Gabriel Pires MD - 01/14/2018 Exam: 1. Right shoulder, 2 views 2. Left shoulder, 2 views 3. Bilateral hips and pelvis, 4 views 4. Right hand, 3 views 5. Right wrist, 2 views 6. Left hand, 3 views 7. Left wrist, 2 views 8. Right knee, 3 views weightbearing 9. Left knee, 3 views. Date: 12/17/2015 History: pain, OA Comparison: None available Findings: Right shoulder: The alignment of the glenohumeral joint is normal. There is mildacromioclavicular joint osteoarthritis. There is no acute fracture ordislocation. Left shoulder: The alignment of the glenohumeral joint is normal. The acromioclavicularjoint is intact. There is chronic bony irregularity at the greatertuberosity suggesting chronic rotator cuff tendinopathy. There is no acutefracture or dislocation. Bilateral hips and pelvis: The pelvic ring is intact. There is no fracture or dislocation. There isno widening or displacement of the sacroiliac joints. There is sclerosisof the pubic symphysis with mild bony irregularity which may representosteitis pubis. There is good anatomical alignment of the femoral heads within the acetabulabilaterally. Bilateral hip joint spaces appear preserved. Right hand: There is no fracture or dislocation. There is mild osteoarthritisinvolving multiple interphalangeal joints. There are no erosive changes.There is no soft tissue swelling. Right wrist: There is no fracture or dislocation. There is moderate to severe firstcarpometacarpal joint osteoarthritis. There are no erosive changes. Thereis no soft tissue swelling. Left hand: There is no fracture or dislocation. There is mild osteoarthritisinvolving multiple interphalangeal joints. There are no erosive changes.There is no soft tissue swelling. Left wrist: There is no fracture or dislocation. There is moderate to severe firstcarpometacarpal joint osteoarthritis. There are no erosive changes. Thereis no soft tissue swelling. Right knee: There is no acute fracture or dislocation. No joint effusion is present.Moderate tricompartmental osteophytes are present with mild medial andmoderate patellofemoral compartment joint space narrowing. There is nofocal soft tissue swelling. Left knee: There is no acute fracture or dislocation. No joint effusion is present.Moderate tricompartmental osteophytes are present with mild medial andmild patellofemoral joint space narrowing. There is no focal soft tissueswelling. Bone mineralization the above joints is normal. IMPRESSION Impression: 1. Mild right acromioclavicular joint osteoarthritis. 2. Bony irregularity at the left greater tuberosity suggestive of chronicrotator cuff tendinopathy. 3. No significant arthritis in the bilateral hips. 4. 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 5. Mild to moderate bilateral knee osteoarthritis. Report dictated by Joel Loya MD (radiology asst). This report was approved by Joel Loya M.D. on 12/17/2015 2:19 PM . I, Dr. GABRIEL PIRES MD have personally reviewed and interpreted thisexamination/study. This report was electronically signed by GABRIEL PIRES MD on 12/17/20152:56 PM . Alicia Fraser MD DIAGNOSTIC ANTONIETA GING ORDERABLES * XR SHOULDER LEFT 2VW OR MORE (12/17/2015 12:00 PM GRAPHIC ART TECHNICIAN) Anatomical Region Laterality Modality Upper Extremity Other Impressions 12/17/2015 2:56 PM GRAPHIC ART TECHNICIAN Impression: 1. Mild right acromioclavicular joint osteoarthritis. 2. Bony irregularity at the left greater tuberosity suggestive of chronic rotator cuff tendinopathy. 3. No significant arthritis in the bilateral hips. 4. 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 5. Mild to moderate bilateral knee osteoarthritis. Report dictated by Joel Loya MD (radiology asst). This report was approved by Joel Loya M.D. on 12/17/2015 2:19 PM . I, Dr. GABRIEL PIRES MD have personally reviewed and interpreted this examination/study. This report was electronically signed by GABRIEL PIRES MD on 12/17/2015 2:56 PM . Narrative 12/17/2015 2:56 PM GRAPHIC ART TECHNICIAN Exam: 1. Right shoulder, 2 views 2. Left shoulder, 2 views 3. Bilateral hips and pelvis, 4 views 4. Right hand, 3 views 5. Right wrist, 2 views 6. Left hand, 3 views 7. Left wrist, 2 views 8. Right knee, 3 views weightbearing 9. Left knee, 3 views. Date: 12/17/2015 History: pain, OA Comparison: None available Findings: Right shoulder: The alignment of the glenohumeral joint is normal. There is mild acromioclavicular joint osteoarthritis. There is no acute fracture or dislocation. Left shoulder: The alignment of the glenohumeral joint is normal. The acromioclavicular joint is intact. There is chronic bony irregularity at the greater tuberosity suggesting chronic rotator cuff tendinopathy. There is no acute fracture or dislocation. Bilateral hips and pelvis: The pelvic ring is intact. There is no fracture or dislocation. There is no widening or displacement of the sacroiliac joints. There is sclerosis of the pubic symphysis with mild bony irregularity which may represent osteitis pubis. There is good anatomical alignment of the femoral heads within the acetabula bilaterally. Bilateral hip joint spaces appear preserved. Right hand: There is no fracture or dislocation. There is mild osteoarthritis involving multiple interphalangeal joints. There are no erosive changes. There is no soft tissue swelling. Right wrist: There is no fracture or dislocation. There is moderate to severe first carpometacarpal joint osteoarthritis. There are no erosive changes. There is no soft tissue swelling. Left hand: There is no fracture or dislocation. There is mild osteoarthritis involving multiple interphalangeal joints. There are no erosive changes. There is no soft tissue swelling. Left wrist: There is no fracture or dislocation. There is moderate to severe first carpometacarpal joint osteoarthritis. There are no erosive changes. There is no soft tissue swelling. Right knee: There is no acute fracture or dislocation. No joint effusion is present. Moderate tricompartmental osteophytes are present with mild medial and moderate patellofemoral compartment joint space narrowing. There is no focal soft tissue swelling. Left knee: There is no acute fracture or dislocation. No joint effusion is present. Moderate tricompartmental osteophytes are present with mild medial and mild patellofemoral joint space narrowing. There is no focal soft tissue swelling. Bone mineralization the above joints is normal. Procedure Note Gabriel Pires MD - 01/14/2018 Exam: 1. Right shoulder, 2 views 2. Left shoulder, 2 views 3. Bilateral hips and pelvis, 4 views 4. Right hand, 3 views 5. Right wrist, 2 views 6. Left hand, 3 views 7. Left wrist, 2 views 8. Right knee, 3 views weightbearing 9. Left knee, 3 views. Date: 12/17/2015 History: pain, OA Comparison: None available Findings: Right shoulder: The alignment of the glenohumeral joint is normal. There is mildacromioclavicular joint osteoarthritis. There is no acute fracture ordislocation. Left shoulder: The alignment of the glenohumeral joint is normal. The acromioclavicularjoint is intact. There is chronic bony irregularity at the greatertuberosity suggesting chronic rotator cuff tendinopathy. There is no acutefracture or dislocation. Bilateral hips and pelvis: The pelvic ring is intact. There is no fracture or dislocation. There isno widening or displacement of the sacroiliac joints. There is sclerosisof the pubic symphysis with mild bony irregularity which may representosteitis pubis. There is good anatomical alignment of the femoral heads within the acetabulabilaterally. Bilateral hip joint spaces appear preserved. Right hand: There is no fracture or dislocation. There is mild osteoarthritisinvolving multiple interphalangeal joints. There are no erosive changes.There is no soft tissue swelling. Right wrist: There is no fracture or dislocation. There is moderate to severe firstcarpometacarpal joint osteoarthritis. There are no erosive changes. Thereis no soft tissue swelling. Left hand: There is no fracture or dislocation. There is mild osteoarthritisinvolving multiple interphalangeal joints. There are no erosive changes.There is no soft tissue swelling. Left wrist: There is no fracture or dislocation. There is moderate to severe firstcarpometacarpal joint osteoarthritis. There are no erosive changes. Thereis no soft tissue swelling. Right knee: There is no acute fracture or dislocation. No joint effusion is present.Moderate tricompartmental osteophytes are present with mild medial andmoderate patellofemoral compartment joint space narrowing. There is nofocal soft tissue swelling. Left knee: There is no acute fracture or dislocation. No joint effusion is present.Moderate tricompartmental osteophytes are present with mild medial andmild patellofemoral joint space narrowing. There is no focal soft tissueswelling. Bone mineralization the above joints is normal. IMPRESSION Impression: 1. Mild right acromioclavicular joint osteoarthritis. 2. Bony irregularity at the left greater tuberosity suggestive of chronicrotator cuff tendinopathy. 3. No significant arthritis in the bilateral hips. 4. 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 5. Mild to moderate bilateral knee osteoarthritis. Report dictated by Joel Loya MD (radiology asst). This report was approved by Joel Loya M.D. on 12/17/2015 2:19 PM . IDr. GABRIEL MD have personally reviewed and interpreted thisexamination/study. This report was electronically signed by GABRIEL PIRES MD on 12/17/20152:56 PM . Alicia Fraser MD DIAGNOSTIC ANTONIETA GING ORDERABLES * XR LUMBAR SPINE 4VW OR MORE (12/17/2015 12:00 PM GRAPHIC ART TECHNICIAN) Anatomical Region Laterality Modality Spine Other Impressions 12/17/2015 3:55 PM GRAPHIC ART TECHNICIAN Impression: No active abnormality of the lumbar spine. Dictated by Karlos Jacob MD (radiology asst) This report was approved by Zach Jacob on 12/17/2015 3:[address] BOBBI Ortega M.D. have personally reviewed and interpreted this examination/study. This report was electronically signed by BOBBI LONDONO M.D. on 12/17/2015 3:55 PM . Narrative 12/17/2015 3:55 PM GRAPHIC ART TECHNICIAN Exam: XR SPINE LUMBAR 4 VW MIN Date: 12/17/2015 12:01 PM History: pain Comparison: None Findings: There is no fracture or subluxation. The lumbar spine alignment is normal. Vertebral body heights and intervertebral disc spaces are maintained. Facet joints are normal. There is no soft tissue abnormality. Procedure Note Bobbi Londono MD - 01/14/2018 Exam: XR SPINE LUMBAR 4 VW MIN Date: 12/17/2015 12:01 PM History: pain Comparison: None Findings: There is no fracture or subluxation. The lumbar spine alignment is normal.Vertebral body heights and intervertebral disc spaces are maintained.Facet joints are normal. There is no soft tissue abnormality. IMPRESSION Impression: No active abnormality of the lumbar spine. Dictated by Karlos Jacob MD (radiology asst) This report was approved by Zach Jacob on 12/17/2015 3:[address] BOBBI Ortega M.D. have personally reviewed and interpreted thisexamination/study. This report was electronically signed by BOBBI LONDONO M.D. on 12/17/20153:55 PM . Alicia Fraser MD DIAGNOSTIC ANTONIETA GING ORDERABLES * XR CERVICAL SPINE 4 OR 5VW (12/17/2015 12:00 PM GRAPHIC ART TECHNICIAN) Anatomical Region Laterality Modality Spine Other Impressions 12/17/2015 3:55 PM GRAPHIC ART TECHNICIAN Impression: 1. No acute osseous injury. 2. Mild degenerative disc disease of the mid to lower cervical spine. Dictated by Karlos Jacob MD (radiology asst) This report was approved by Zach Jacob on 12/17/2015 3:[address] BOBBI Ortega M.D. have personally reviewed and interpreted this examination/study. This report was electronically signed by BOBBI LONDONO M.D. on 12/17/2015 3:55 PM . Narrative 12/17/2015 3:55 PM GRAPHIC ART TECHNICIAN Exam: XR SPINE CERVICAL 4 VW MIN Date: 12/17/2015 12:01 PM History: pain Comparison: None Findings: Cervical spine alignment is normal. Vertebral body heights are maintained. There is mild degenerative disc disease of the mid to lower cervical spine with anterior osteophyte formation at C4-C5, C5-C6, and C6-C7. No acute fracture or compression deformity is identified. The predental interval and prevertebral soft tissues are normal. Bony mineralization is normal. Procedure Note Bobbi Londono MD - 01/14/2018 Exam: XR SPINE CERVICAL 4 VW MIN Date: 12/17/2015 12:01 PM History: pain Comparison: None Findings: Cervical spine alignment is normal. Vertebral body heights are maintained.There is mild degenerative disc disease of the mid to lower cervical spinewith anterior osteophyte formation at C4-C5, C5-C6, and C6-C7. No acutefracture or compression deformity is identified. The predental interval and prevertebral softtissues are normal. Bony mineralization is normal. IMPRESSION Impression: 1. No acute osseous injury. 2. Mild degenerative disc disease of the mid to lower cervical spine. Dictated by Karlos Jacob MD (radiology asst) This report was approved by Zach Jacob on 12/17/2015 3:49 PM . I, Dr. BOBBI LONDONO M.D. have personally reviewed and interpreted thisexamination/study. This report was electronically signed by BOBBI LONDONO M.D. on 12/17/20153:55 PM . Alicia Fraser MD DIAGNOSTIC ANTONIETA GING ORDERABLES * (ABNORMAL) TASHA W/REFLEX IFA PATTERN (12/17/2015 11:05 AM GRAPHIC ART TECHNICIAN) TASHA Positive(A ) None Detected [facility] Blood specimen (specimen) BLOOD SPECIMEN / Unknown 12/17/2015 11:05 AM GRAPHIC ART TECHNICIAN 12/17/2015 11:58 AM GRAPHIC ART TECHNICIAN Alicia Fraser MD LAB - SEROLOGY ORDERABLES Performing Organization Address City/[facility]/ZIP Co de Phone Number [address] [phone] * URIC ACID BLOOD (12/17/2015 11:05 AM GRAPHIC ART TECHNICIAN) Uric Acid 5.8 2.6 - 7.2 mg/dL [facility] Blood specimen (specimen) BLOOD SPECIMEN / Unknown 12/17/2015 11:05 AM GRAPHIC ART TECHNICIAN 12/17/2015 11:58 AM GRAPHIC ART TECHNICIAN Alicia Fraser MD LAB - CHEMISTR Y ORDERABLES Performing Organization Address City/[facility]/ZIP Co de Phone Number [address] [phone] * RHEUMATOID FACTOR BLOOD QUANTITATIVE (12/17/2015 11:05 AM GRAPHIC ART TECHNICIAN) Rheumatoid Factor <15 <30 IU/mL [facility] Blood specimen (specimen) BLOOD SPECIMEN / Unknown 12/17/2015 11:05 AM GRAPHIC ART TECHNICIAN 12/17/2015 11:58 AM GRAPHIC ART TECHNICIAN Alicia Fraser MD LAB - CHEMISTR Y ORDERABLES Performing Organization Address City/[facility] Co de Phone Number [address] [phone] * (ABNORMAL) THYROID PEROXIDASE ANTIBODY (12/17/2015 11:05 AM GRAPHIC ART TECHNICIAN) Thyroid Peroxidase TPO Antibody 1274(H) 0 - 34 IU/mL [facility] Comment: Results confirmed on dilution. Blood specimen (specimen) BLOOD SPECIMEN / Unknown 12/17/2015 11:05 AM GRAPHIC ART TECHNICIAN 12/17/2015 12:00 PM GRAPHIC ART TECHNICIAN Narrative [facility] ([facility]) - 12/18/2015 10:21 AM GRAPHIC ART TECHNICIAN Performed at: [address] [place] [address] [id number] Seasonal Warehouse Associate: Michael Tomas PhD, Phone: [phone] Alicia Fraser MD LAB - CHEMISTR Y ORDERABLES [facility] ([facility]) * THYROGLOBULIN ANTIBODY (12/17/2015 11:05 AM GRAPHIC ART TECHNICIAN) [facility] Thyroglobulin Antibody <1.0 0.0 - 0.9 IU/mL [facility] ([facility]) Comment:Thyroglobulin Antibo dy measured by Henny Alondra Methodology Blood specimen (specimen) BLOOD SPECIMEN / Unknown 12/17/2015 11:05 AM GRAPHIC ART TECHNICIAN 12/17/2015 11:59 AM GRAPHIC ART TECHNICIAN Narrative [facility] - 12/18/2015 1:14 PM GRAPHIC ART TECHNICIAN Performed at: [address] [place] [address] [id number] Seasonal Warehouse Associate: Michael Tomas PhD, Phone: [phone] Alicia Fraser MD LAB - CHEMISTR Y ORDERABLES Performing Organization Address [facility] Co de Phone Number [facility] ([facility]) * (ABNORMAL) COMPLEMENT TOTAL (12/17/2015 11:05 AM GRAPHIC ART TECHNICIAN) [facility] Complement Total CH50 >60(H) 42 - 60 U/mL [facility]) Comment:Please note refere nce interval change Blood specimen (specimen) BLOOD SPECIMEN / Unknown 12/17/2015 11:05 AM GRAPHIC ART TECHNICIAN 12/17/2015 11:59 AM GRAPHIC ART TECHNICIAN Narrative [facility]) - 12/18/2015 3:14 PM GRAPHIC ART TECHNICIAN Performed at: [address] [place] [address] [id number] Seasonal Warehouse Associate: Michael Tomas PhD, Phone: [phone] Alicia Fraser MD LAB - CHEMISTR Y ORDERABLES Performing Organization Address City/[facility] Co de Phone Number [facility] ([facility]) * (ABNORMAL) VITAMIN D 25-HYDROXY (12/17/2015 11:05 AM GRAPHIC ART TECHNICIAN) Vitamin D, 25 Hydroxy 23.9(L) >30.0 ng/mL [facility] Comment: The recommendations for 25-Hydroxy Vitamin D clinical decision points are as follows: Deficient: <20.0 ng/mL Insufficient: 20.0 - 30.0 ng/mL Sufficient: >30.0 ng/mL If the 25-Hydroxy Vitamin D results are inconsitent with clinical evidence, it is recommended that follow-up testing using a method such as LC/MS/MS be performed to confirm the result. Blood specimen (specimen) BLOOD SPECIMEN / Unknown 12/17/2015 11:05 AM GRAPHIC ART TECHNICIAN 12/17/2015 11:58 AM GRAPHIC ART TECHNICIAN Alicia Fraser MD LAB - CHEMISTR Y ORDERABLES Performing Organization Address [facility] Co de Phone Number [address] [phone] * CYCLIC CITRUL PEPTIDE AB IGG ([facility]P) (12/17/2015 11:05 AM GRAPHIC ART TECHNICIAN) [facility] CCP Antibody IgG <0.5 <5.0 U/mL [facility] Blood specimen (specimen) BLOOD SPECIMEN / Unknown 12/17/2015 11:05 AM GRAPHIC ART TECHNICIAN 12/17/2015 11:58 AM GRAPHIC ART TECHNICIAN Alicia Fraser MD LAB - CHEMISTR Y ORDERABLES Performing Organization Address [facility] Co de Phone Number [address] [phone] * T4 FREE (12/17/2015 11:05 AM GRAPHIC ART TECHNICIAN) [facility] T4 Free 1.5 0.7 - 1.5 ng/dL [facility] Blood specimen (specimen) BLOOD SPECIMEN / Unknown 12/17/2015 11:05 AM GRAPHIC ART TECHNICIAN 12/17/2015 11:58 AM GRAPHIC ART TECHNICIAN Alicia Fraser MD LAB - CHEMISTR Y ORDERABLES Performing Organization Address [facility] [place] [address], [place] [phone] Care Teams Order Packer Or Packager Relationship Specialty Start Date End Date Juliann Sequeira, [employer] ENGINEER-COMMUNITY LIAISON [address] [place] [address] PCP - General 11/14/19
== END 2024-12-11 10:00 | disposition home or self-care (01) ==
PROVIDERS: PCP Nurse Practitioner Family; Visit Provider Nurse Practitioner Family
DX: Z12.31 Encounter for screening mammogram for malignant neoplasm of breast (principal)
CPT/HCPCS: 77063; 77067

== ENCOUNTER 2025-06-05 12:32 | Outpatient (CLI) | payer MEDICARE, MEDICAID, SELFPAY ==
--- OUTSIDE RECORDS SUMMARY | 2025-06-05 12:36 | XMS_ITS | Clinical Summary ---
Author Organization [facility] Address [address] [place] [id number] Care Team Providers Care Blending Machine Operator Name Role Phone Joel Diaz MD Primary Care Provider Social History Tobacco Use Types Packs/Day Years [...] 1 - Tdap) 1976 Mammogram Screening 1997 Pneumococcal Vaccine: 50+ Ye ars (1 of 1 - PCV) 2007 Zoster Vaccines (1 of 2) 2007 Dexa Scan (General) 2022 COVID-19 Vaccine ( - 2023-2 5 season) 2024 RSV Immunization or 60+ Years (1 [...] age to complete this topic Care Teams Blending Machine Operator Relationship Specialty Start Date End Date Joel Diaz MD PCP - General 01/03/15
[2025-06-05 16:33] LABS: Hematocrit 37.5 % (37.0-47.0); Hemoglobin 12.3 g/dL (12.0-15.0); Immature Granulocyte Percent A 0.3 % (0-0.5); Lymphocytes Absolute Auto 1.74 K/mm3 (0.9-3.2); Mean Corpuscular HGB Conc 32.8 g/dl (32-36); Mean Corpuscular Hemoglobin 29.1 pg (26-34); Mean Corpuscular Volume 88.7 fl (80-100); Nucleated Red Blood Cells Absolute Auto 0.000 K/mm3 (0.0-0.012); Nucleated Red Blood Cells Perc 0.0 % (0.0-0.2); Platelet Count Result 242 k/mm3 (150-375); Red Blood Count 4.23 M/mm3 (4.2-5.4); White Blood Count 6.5 K/mm3 (4.5-10.0)
[2025-06-05 16:42] LABS: Alanine Aminotransferase 15 U/L (6-35); Albumin Level 4.4 g/dL (3.5-5.1); Alkaline Phosphatase 86 U/L (38-126); Anion Gap 6 mmol/L (4-12); Aspartate Amino Transferase 44 U/L (14-36); Bilirubin,Total 0.8 mg/dL (0.2-1.3); Blood Urea Nitrogen 8 mg/dL (7-17); Calcium 9.5 mg/dL (8.4-10.2); Carbon Dioxide 28 mmol/L (22-30); Chloride 106 mmol/L (98-107); Cholesterol 171 mg/dL (0-200); Estimated Glomerular Filt Rate 57; Glucose 86 mg/dL (65-110); HDL Direct 55 mg/dL; Potassium 4.1 mmol/L (3.4-5.0); Sodium 140 mmol/L (137-145); Total Protein 8.5 g/dL (6.3-8.2); Triglycerides 61 mg/dL (<150)
[2025-06-05 16:59] LABS: Free T4 Free Thyroxine 0.99 ng/dL (0.78-2.19)
[2025-06-05 17:17] LABS: Thyroid Stimulating Hormone 7.000 uIU/mL (0.465-4.680)
== END 2025-06-05 12:33 | disposition home or self-care (01) ==
LOC: ANHGOSHLAB 12:33
PROVIDERS: PCP Nurse Practitioner Family; Visit Provider Nurse Practitioner Family
DX: E78.5 Hyperlipidemia, unspecified (principal); E03.9 Hypothyroidism, unspecified; E55.9 Vitamin D deficiency, unspecified; L93.0 Discoid lupus erythematosus; Z83.2 Family history of diseases of the blood and blood-forming organs and certain disorders involving the immune mechanism; R51.9 Headache, unspecified
CPT/HCPCS: 36415; 80053; 80061; 82306; 84439; 84443; 85025

== ENCOUNTER 2025-06-25 09:15 | Outpatient (RCR) | payer MEDICARE, MEDICAID, SELFPAY ==
--- NOTE | 2025-03-28 11:50 | OPREHPOC ---
Outpatient Therapy Plan of Care This is a Multidisciplinary Plan of Care that may contain components documented by all disciplines (PT, OT, and ST.) PT Problem 1 PT Problem #1 Knowledge Deficit PT Goal 1 Goal / Goal Update [place] with HEP Target Visit 4 PT Goal 2 Goal / Goal Update Report no back pain greater than 2/10 Target Visit 8 PT Problem 2 PT Problem #2 Impaired Gait PT Goal 1 Goal / Goal Update Ambulate with even stride length bilaterally with absence of trunk lean. PT Problem 3 PT Problem #3 Impaired Strength PT Goal 1 Goal / Goal Update 1. Improve lennie hip abduction strength to 4+/5 to improve latera stability with gait and ADL function Target Visit 8 PT Problem 4 PT Problem #4 Impaired Range of Motion PT Goal 1 Goal / Goal Update 1. Improve elnnie knee ROM to 0-130 degrees for improve surface motion for ambulation and squatting activity
--- NOTE | 2025-03-28 11:50 | PTOPEVAL1 ---
Assessment and note entered by David Zapata, PT Evaluation Information Assessment Status Evaluation ICD-10 Condition Codes (PT) Pain in low back M54.50,Pain in right knee M25.561 ,Pain in left knee M25.562 Onset Chronic Subjective Information Reports that she has had pain off and on for a long time but most recently started acting up again in January. Pain is worst with walking. She does have some pain at night but it is improved since she had the injection in the back ion 03/20/25 . She has had issues with this in the past and aquatic therapy has helped her before. Would like to do another round of it. She does get pain with prolonged sitting as well. Assessment PT Clinical Summary Patient presents with signs and symptoms consistent with knee OA and lumbar stenosis. Pain is in nature of sciatica. She will benefit form skilled therapy to address these deficits and lizandro had a lot of positive benefit from aquatic in the past. Plan of Care Interventions Aquatic Therapy,Gait Training,Manual Therapy,Neuro Re-education,Therapeutic Activities,Therapeutic Exercise PT Services Indicated Yes Treatment Frequency and 1-2x/week for 8 visits Duration These treatments will address the objective and functional deficits as defined above. The patient will be advanced safely and appropriately in order for the patient to progress towards his/her prior level of function. Additional exercises will be introduced and as well as a comprehensive home exercise program upon discharge, if needed, ?to ensure carryover of functional gains achieved in the clinic. This treatment plan has been reviewed and agreement upon by the patient.
--- NOTE | 2025-04-17 12:19 | PCPTNOTE ---
Pt canceled due to transporation issues.
--- NOTE | 2025-05-03 09:59 | PCPTNOTE ---
pt called and canceled today's appt due to having more back pain.
--- NOTE | 2025-05-10 10:17 | PCPTNOTE ---
pt called just prior to her appt time, stated she will be late for appt due to transportation issues. She then called 15 minutes after her appt, canceled and rescheduled appt due to transportation issues.
--- NOTE | 2025-05-29 11:55 | OPREHPOC ---
Outpatient Therapy Plan of Care This is a Multidisciplinary Plan of Care that may contain components documented by all disciplines (PT, OT, and ST.) PT Problem 1 PT Problem #1 Knowledge Deficit PT Goal 1 Goal / Goal Update [place] with HEP 05-29-25 progress goal met continue towards goal to progress education/HEP Target Visit 14 PT Goal 2 Goal / Goal Update Report no back pain greater than 2/10 05-29-25 progress goal not met 8/10 at worst NEW GOAL: 1* pain at worst of 5/10 2* radicular pain to R knee at worst Target Visit 14 PT Problem 2 PT Problem #2 Impaired Gait PT Goal 1 Goal / Goal Update Ambulate with even stride length bilaterally with absence of trunk lean. 05-29-25 progress goal partially met--step length equal, but have trunk lean R/L continue towards goal Target Visit 14 PT Problem 3 PT Problem #3 Impaired Strength PT Goal 1 Goal / Goal Update 1. Improve lennie hip abduction strength to 4+/5 to improve latera stability with gait and ADL function 05-29-25 progress goal not met; R 3+/5 and L 4-/5 continue towards goal ADD: 2- 2 minute walking test distance of 300' Target Visit 14 PT Problem 4 PT Problem #4 Impaired Range of Motion PT Goal 1 Goal / Goal Update 1. Improve lennie knee ROM to 0-130 degrees for improve surface motion for ambulation and squatting activity 05-29-25 progress goal not met; 100' bilateral updated goal: bilateral knee flexion to 115' Target Visit 14
--- NOTE | 2025-05-29 11:55 | PTOPPROG ---
Assessment and note entered by Lupe Mohamud, PT Assessment Status Progress ICD-10 Condition Codes (PT) Pain in low back M54.50,Pain in right knee M25.561 ,Pain in left knee M25.562 Onset Chronic Subjective Information to see the dr tomorrow; was starting to feel good with the water exercises; been doing the exercises at home; frustrated by having issues with the transportation to get here to therapy; want to continue therapy; R hip and bilateral low back: feels like needles in there; radicular pain into R LE intermittent to ankle 70% of day PAIN: range in the past week: 5-8/10 increase pain: walking/standing tolerance 2 hours, lifting decrease pain: epson salt bath, pain meds do not help, take tylenol PM sometimes to help sleep can sleep OK with meds Assessment PT Clinical Summary Mitra has received 6 PT sessions, from March 28 to today. She called/canceled 3 appointments due to transportation issues. With today's assessment: pain rating of 5-8/10, with intermittent radicular pain into R LE to ankle ~ 70% of the day; reported standing and walking tolerance of 2 hours activity; self assessment with Back Index rating of 50% limitation in activity level; gait pattern with flat foot, equal step length, lateral trunk motion , R knee and hip flexion and decrease weight shift onto R LE; 2 minute walking test distance of 230 ' with pain reported 8/10; weakness of R 3+/5 and L 4-/5 of hip abduction; decreased bilateral knee flexion ROM of 100' and extension R (-20') and L 0'; The goals were partially achieved. Continue PT treatment. Plan of Care Interventions Aquatic Therapy,Electrical Stimulation,Gait Training,Hot Pack/Cold Pack,Manual Therapy,Neuro Re-education,Patient/Caregiver Education, Therapeutic Activities,Therapeutic Exercise, Ultrasound,Other Other Interventions taping PT Services Indicated Yes Treatment Frequency and 2x/wk for 8 visits Duration These treatments will address the objective and functional deficits as defined above. The patient will be advanced safely and appropriately in order for the patient to progress towards his/her prior level of function. Additional exercises will be introduced and as well as a comprehensive home exercise program upon discharge, if needed, ?to ensure carryover of functional gains achieved in the clinic. This treatment plan has been reviewed and agreement upon by the patient.
== END 2025-06-26 23:59 | disposition home or self-care (01) ==
LOC: ANHPT 09:15
PROVIDERS: PCP Nurse Practitioner Family; Visit Provider Nurse Practitioner Family
DX: M25.562 Pain in left knee (principal); M25.561 Pain in right knee; M47.896 Other spondylosis, lumbar region
CPT/HCPCS: 97110; 97113; 97161; 97530

== ENCOUNTER 2025-07-23 10:00 | Outpatient (RCR) | payer MEDICARE, MEDICAID, SELFPAY ==
--- NOTE | 2025-07-05 14:04 | PTOPPROG ---
Assessment and note entered by Tanna Cheema, PT Progress Information Assessment Status Progress Diagnosis M54.5, M47.896 ICD-10 Condition Codes (PT) Pain in low back M54.50,Pain in right knee M25.561 ,Pain in left knee M25.562 Onset Chronic Subjective Information Pt. States was starting to feel good with the water exercises; been doing the exercises at home; had a bad flare up of the back pain and B knee pain last week and had to cancel her appointment, she sat for hours and wept, unable to move due to increased pain. PAIN: range in the past week: 6-7/10 increase pain: walking/standing tolerance 2 hours, lifting and carrying decrease pain: epson salt bath, pain meds do not help, take tylenol PM sometimes to help sleep Assessment PT Clinical Summary Pt received 8 treatment sessions in the pool and was initially having issues with transportation impacting therapy schedule. Today's re-evaluation showed some improvement in mobility and flexibility, however, not much progress noted in pain levels with patient continuing to c/o intense pain and stiffness with prolonged standing and walking. She did meet her goals for gait distance and is compliant with HEPs. Issued heel lift to address postural instability and deficits in weight bearing secondary to LLD. She will benefit from skilled PT to monitor and progress use of appropriate orthosis to improve safety and activity tolerance, resistance exercises outside of the pool to transition to prepare for regular wellness workout post DC, aqua exercises and modalities to help reduce pain. Plan of Care Interventions Aquatic Therapy,Check Out for Orthotic/Prosthetic, Electrical Stimulation,Gait Training,Hot Pack/Cold Pack,Manual Therapy,Neuro Re-education,Patient/ Caregiver Education,Therapeutic Activities, Therapeutic Exercise,Ultrasound,Other Other Interventions taping PT Services Indicated Yes Treatment Frequency and 2x/wk for 8 visits Duration These treatments will address the objective and functional deficits as defined above. The patient will be advanced safely and appropriately in order for the patient to progress towards his/her prior level of function. Additional exercises will be introduced and as well as a comprehensive home exercise program upon discharge, if needed, ?to ensure carryover of functional gains achieved in the clinic. This treatment plan has been reviewed and agreement upon by the patient.
--- NOTE | 2025-07-23 10:34 | OPREHPOC ---
Outpatient Therapy Plan of Care This is a Multidisciplinary Plan of Care that may contain components documented by all disciplines (PT, OT, and ST.) PT Problem 1 PT Problem #1 Knowledge Deficit PT Goal 1 Goal / Goal Update [place] with HEP 05-29-25 progress goal met continue towards goal to progress education/HEP Target Visit 14 PT Goal 2 Goal / Goal Update Report no back pain greater than 2/10 05-29-25 progress goal not met 8/10 at worst NEW GOAL: 1* pain at worst of 5/10 after standing and walking 2* radicular pain to R knee 3/10 at worst 07-23-25 d/c goals not met Target Visit 14 Progress Not Met PT Problem 2 PT Problem #2 Impaired Gait PT Goal 1 Goal / Goal Update Ambulate with even stride length bilaterally with absence of trunk lean. 05-29-25 progress goal partially met--step length equal, but have trunk lean R/L continue towards goal 07/04/2025 progress introduced heel lift, noted improved gait pattern and ambulation tolerance, decreased lateral trunk lean; continue to monitor 07-23-25 d/c goal met Target Visit 14 Progress Met PT Problem 3 PT Problem #3 Impaired Strength PT Goal 1 Goal / Goal Update 1. Improve lennie hip abduction strength to 4+/5 to improve latera stability with gait and ADL function 05-29-25 progress goal not met; R 3+/5 and L 4-/5 continue towards goal ADD: 2- 2 minute walking test distance of 300' 07/02/2025 goal not met; R 4-/5 and L 4-/5 : continue towards goal 2 minute walking test distance of 300' - met 07-23-25 d/c goal 2 met Target Visit 14 Progress Partially Met PT Problem 4 PT Problem #4 Impaired Range of Motion PT Goal 1 Goal / Goal Update 1. Improve lennie knee ROM to 0-130 degrees for improve surface motion for ambulation and squatting activity 05-29-25 progress goal not met; 100' bilateral updated goal: bilateral knee flexion to 115' 07-23-25 d/c goal met 07/02/2025 bilateral knee flexion: 118deg Target Visit 14 Progress Met
--- NOTE | 2025-07-23 10:34 | PTOPDC ---
Assessment and note entered by Lupe Mohamud, PT Assessment Status Discharge Diagnosis M54.5, M47.896 ICD-10 Condition Codes (PT) Pain in low back M54.50,Pain in right knee M25.561 ,Pain in left knee M25.562 Onset Chronic Subjective Information things are going pretty good, my condition fluctuates, at a medium pain now; no pain in my back right night, but have pain behind my knees to calves; have the exercises at home to do, trying to strengthen my back and legs--use the vacuum to help get stronger, try to do things and not stay in bed all the time; have put some firm pillows on top of my mattress, to make it more comfortable and that has helped my back and supported it, so not slump in the bed; the heel lift for my R shoe has helped some; do not have an appointment with pain management, primary dr has to give her a referral to go back to pain management; Reported Pain Level Pain Score 0: Self Report Additional Pain Score Comments pain range in the past week for low back 0-6/10 and for knees 4-6/10; reported standing/walking tolerance of 1 hour, then back tightens and hurts more in knees, have to sit down; decrease pain: sit, rest, elevate legs, soak in bath Assessment PT Clinical Summary Mitra has received a total of 12 PT sessions, from March 28 to today, July 23. She called/ canceled 3 appointments. With today's assessment: pain of back 0-6/10 and knees 4-6/10, R more pain than L; self assessment with back index rating of 50% limitation in activity; reported standing/walking tolerance of 1 hour; 2 minute walking test distance of 375' with SOB and increase back pain to 1/10; hamstring stretch R and L without pain; R knee flexion and extension increase pain in her knee; ROM of R knee (-5') to 110' and L 0-120'; strength of hip abduction R 3+/5 and L 4-/5; education for HEP for land and water, pain management with activity/rest balance. The goals were partially met. Discharge PT services. She is to continue with activity as tolerated and home stretching and strengthening exercises. Plan of Care PT Services Indicated No
== END 2025-09-26 23:59 | disposition home or self-care (01) ==
LOC: ANHPT 10:00
PROVIDERS: PCP Nurse Practitioner Family; Visit Provider Nurse Practitioner Family
DX: M25.562 Pain in left knee (principal); M25.561 Pain in right knee; M47.896 Other spondylosis, lumbar region
CPT/HCPCS: 97014; 97110; 97116; 97140; 97161; 97162; 97530; 97750; G0283